=== PATIENT | male | born 1965 | race African-American/Black ===

== ENCOUNTER 2018-02-23 16:42 | Inpatient (IN) | payer OTHER ==
[~2018-02-23] VITALS: Ht 177.8 cm; Wt 91.2 kg
[2018-02-23] VITALS (7 sets, daily range): BP systolic 101–150; BP diastolic 56–79; PULSE 100–115; RESP 18; TEMP 101–103.2; O2SAT 95–98
[2018-02-23] MEDS ORDERED: ACETAMINOPHEN 325 MG TAB PO ONE (17:45)
[2018-02-23] MEDS ORDERED: VANCOMYCIN INJ 1,000 MG in SODIUM CHLOR 0.9% 250 ML INJ 250 ML IV ONE (18:00)
[2018-02-23] MEDS ORDERED: PIPERACIL-TAZO 4.5 GM PREMIX 100 ML IV ONE (18:00)
[2018-02-23] MEDS ORDERED: SODIUM CHLOR 0.9% 1000 ML INJ 1,000 ML IV ONE (18:00)
[2018-02-23 18:27] LABS: AUTOMATED NEUTROPHIL # 31.2 TH/MM3 (1.8-7.7); BASOPHIL # 0.1 TH/MM3 (0-0.2); BASOPHIL % 0.2 % (0.0-2.0); HEMATOCRIT 34.8 % (39.0-51.0); LYMPH % 3.7 % (9.0-44.0); LYMPHOCYTE # 1.4 TH/MM3 (1.0-4.8); MEAN CELL VOLUME 89.1 FL (80.0-100.0); MEAN CORPUSCULAR HEMOGLOBIN 30.6 PG (27.0-34.0); MEAN CORPUSCULAR HGB CONC 34.4 % (32.0-36.0); MEAN PLATELET VOLUME 9.5 FL (7.0-11.0); MONOCYTE # 3.6 TH/MM3 (0-0.9); NEUT % 86.1 % (16.0-70.0); PLATELET COUNT 300 TH/MM3 (150-450); RED BLOOD COUNT 3.91 MIL/MM3 (4.50-5.90); RED CELL DISTRIBUTION WIDTH 14.1 % (11.6-17.2); WHITE BLOOD COUNT 36.3 TH/MM3 (4.0-11.0)
--- NOTE | 2018-02-23 18:35 | RADRPT ---
EXAM DATE/TIME: 02/23/2018 17:58 [facility] COMPARISON: No previous studies available for comparison. INDICATIONS : Chest pain for 3 weeks. MEDICAL HISTORY : Myocardial infarction. Cerebrovascular accident. Liver dsyfunction. SURGICAL HISTORY : None. ENCOUNTER: Initial ACUITY: 3 weeks PAIN SCORE: 8/10 LOCATION: Bilateral chest FINDINGS: There is increased density at the mid and lower left chest. There is silhouetting of the left heart border and left hemidiaphragm. Right lung is clear. CONCLUSION: Left base consolidation/atelectasis and/or effusion. Melvin Child MD on February 23, 2018 at 18:32 Board Certified Radiologist. This report was verified electronically.
[2018-02-23 18:43] LABS: ALT (GPT) 23 U/L (12-78)
[2018-02-23] MEDS ORDERED: SIMV40TA PO (18:43)
--- NOTE | 2018-02-23 18:44 | PD ---
HPI Chief Complaint: Respiratory Distress Time Seen by Provider: 17:41 Travel History International Travel<30 days: No Contact w/Intl Traveler<30days: No Traveled to known affect area: No History of Present Illness HPI 52-year-old male came to the emergency room sent from the correctional facility for fever. As per patient he's been coughing and running fever for past 3 weeks. His notes that [facility] said that patient was seen by the care home doctor yesterday and was [facility]. He was started on Levaquin yesterday. However there was a chest x-ray ordered that was done today that showed left lower lobe infiltrate with air fluid level and possible abscess. They requested a CT of the thorax. Patient had a temperature 103.5 in triage. Oxygen saturation was 93% on room air. Patient does not require oxygen on a regular basis. On 2 L of nasal cannula saturating 97%. Patient is awake and answering questions appropriately. Says his chest hurts. PFSH Past Medical History Narrative Medical List of his past medical, surgical, social and family history is reviewed from the nursing note. Cerebrovascular Accident: Yes (2001 left facial droop) Gastrointestinal Disorders: Yes (liver dysfunction) Myocardial Infarction: Yes (1986) ?: Not Social History Alcohol Use: No Tobacco Use: Yes (0.5 ppd) Substance Use: No Allergies-Medications (Allergen,Severity, Reaction): Coded Allergies: atorvastatin (Verified Adverse Reaction, Severe, Liver failure, 02/23/18) Comments No known drug allergies Reported Meds & Prescriptions Reported Meds & Active Scripts Active Reported Simvastatin 40 Mg Tab 40 Mg PO HS Narrative Medication Awaiting for the nurse to do the medical reconciliation Review of Systems Except as stated in HPI: all other systems reviewed are Neg General / Constitutional: Positive: Fever, Chills Cardiovascular: Positive: Chest Pain or Discomfort Respiratory: Positive: Cough, Shortness of Breath Physical Exam Narrative GENERAL: Awake, alert, moderate distress SKIN: Focused skin assessment warm/dry. HEAD: Atraumatic. Normocephalic. EYES: Pupils equal and round. No scleral icterus. No injection or drainage. ENT: No nasal bleeding or discharge. Mucous membranes pink and moist. NECK: Trachea midline. No JVD. CARDIOVASCULAR: Regular rate and rhythm. No murmur appreciated. RESPIRATORY: No accessory muscle use. By basilar crackles, decreased air entry left lung base GASTROINTESTINAL: Abdomen soft, non-tender, nondistended. Hepatic and splenic margins not palpable. MUSCULOSKELETAL: No obvious deformities. No clubbing. No cyanosis. No edema. NEUROLOGICAL: Awake and alert. No obvious cranial nerve deficits. Motor grossly within normal limits. Normal speech. PSYCHIATRIC: Appropriate mood and affect; insight and judgment normal. Data Data Last Documented VS Orders Orders Complete Blood Count With Diff (02/23/18 17:38) Comprehensive Metabolic Panel (02/23/18 17:38) Lactic Acid Sepsis Protocol (02/23/18 17:38) Blood Culture (02/23/18 17:38) Iv Access Insert/Monitor (02/23/18 17:38) Electrocardiogram (02/23/18 17:39) Troponin I (02/23/18 17:39) Chest, Single Ap (02/23/18 17:39) Ecg Monitoring (02/23/18 17:39) Influenzae A/B Antigen (02/23/18 17:41) Acetaminophen (Tylenol) (02/23/18 17:45) Ct Thorax/ Chest W Iv Contrast (02/23/18 ) Piperacil-Tazo 4.5 Gm Premix (Zosyn 4.5 (02/23/18 18:00) Vancomycin Inj (Vancomycin Inj) (02/23/18 18:00) Sodium Chlor 0.9% 1000 Ml Inj (Ns 1000 M (02/23/18 18:00) Admit Order (Ed Use Only) (02/23/18 19:08) Iodixanol 320 Inj (Rad Ct) (Visipaque 32 (02/23/18 19:15) Admit To Inpatient (02/23/18 ) Vital Signs (Adult) Q4H (02/23/18 19:23) Activity Oob With Assistance (02/23/18 19:23) Mold Holder / Telemetry .CONTINUOUS (02/23/18 19:23) Sodium Chlor 0.9% 1000 Ml Inj (Ns 1000 M (02/23/18 19:23) Sodium Chloride 0.9% Flush (Ns Flush) (02/23/18 19:30) Sodium Chloride 0.9% Flush (Ns Flush) (02/23/18 21:00) Complete Blood Count With Diff (02/24/18 06:00) Resp Oxygen Aubrey C Titrat 1-4 L (02/23/18 ) Case Management Consult (02/23/18 19:23) Naloxone Inj (Narcan Inj) (02/23/18 19:30) Inpatient Certification (02/23/18 ) Vancomycin Consult Pharmacy (Vancomycin (02/23/18 19:30) Piperacil-Tazo 4.5 Gm Premix (Zosyn 4.5 (02/24/18 00:00) Labs Laboratory Tests Test 02/23/18 17:31 02/23/18 17:41 White Blood Count 36.3 TH/MM3 Red Blood Count 3.91 MIL/MM3 Hemoglobin 12.0 GM/DL Hematocrit 34.8 % Mean Corpuscular Volume 89.1 FL Mean Corpuscular Hemoglobin 30.6 PG Mean Corpuscular Hemoglobin Concent 34.4 % Red Cell Distribution Width 14.1 % Platelet Count 300 TH/MM3 Mean Platelet Volume 9.5 FL Neutrophils (%) (Auto) 86.1 % Lymphocytes (%) (Auto) 3.7 % Monocytes (%) (Auto) 10.0 % Eosinophils (%) (Auto) 0.0 % Basophils (%) (Auto) 0.2 % Neutrophils # (Auto) 31.2 TH/MM3 Lymphocytes # (Auto) 1.4 TH/MM3 Monocytes # (Auto) 3.6 TH/MM3 Eosinophils # (Auto) 0.0 TH/MM3 Basophils # (Auto) 0.1 TH/MM3 CBC Comment AUTO DIFF Differential Total Cells Counted 100 Neutrophils % (Manual) 84 % Band Neutrophils % 3 % Lymphocytes % 3 % Monocytes % 9 % Neutrophils # (Manual) 31.9 TH/MM3 Myelocytes 1 % Nucleated Red Blood Cells 1 /100 WBC Differential Comment FINAL DIFF MANUAL Platelet Estimate NORMAL Platelet Morphology Comment ENLARGED Blood Urea Nitrogen 16 MG/DL Creatinine 1.42 MG/DL Random Glucose 101 MG/DL Total Protein 8.5 GM/DL Albumin 2.4 GM/DL Calcium Level 8.9 MG/DL Alkaline Phosphatase 113 U/L Aspartate Amino Transf (AST/SGOT) 44 U/L Alanine Aminotransferase (ALT/SGPT) 23 U/L Total Bilirubin 0.8 MG/DL Sodium Level 129 MEQ/L Potassium Level 3.6 MEQ/L Chloride Level 93 MEQ/L Carbon Dioxide Level 24.8 MEQ/L Anion Gap 11 MEQ/L Estimat Glomerular Filtration Rate 63 ML/MIN Troponin I LESS THAN 0.02 NG/ML Lactic Acid Level 1.6 mmol/L MDM Medical Decision Making Medical Screen Exam Complete: Yes Emergency Medical Condition: Yes Medical Record Reviewed: Yes Interpretation(s) Twelve-lead EKG was reviewed by me. Normal sinus rhythm, normal axis, tachycardia, nonspecific ST-T wave changes. Heart rate of 117 bpm. Differential Diagnosis Pneumonia, lung abscess, empyema, sepsis Narrative Course 6:42 PM patient was given IV antibiotics as per the sepsis protocol. CBC is back and white count is significantly elevated. He's been given 1 L of IV fluid bolus and Tylenol. Lactic acid is within normal limit. Chemistry is pending. Chest x-rays read as left lower lobe effusion and infiltrate. I've ordered a CT scan of the thorax and awaiting for the test to be done and resulted. Patient will require admission. Awaiting for the hospitalist to call back. Critical Care Narrative Aggregate critical care time was 30 minutes. Time to perform other separately billable procedures was not included in the critical care time. My time did not include minutes spent treating any other patients simultaneously or on activities that did not directly contribute to the patient's treatment. The services I provided to this patient were to treat and/or prevent clinically significant deterioration that could result in: Sepsis, sepsis protocol I provided critical care services requiring my management, as noted below: Chart data review, documentation time, medication orders and management, vital sign assessments/reviewing monitor data, ordering and reviewing lab tests, ordering and interpreting/reviewing x-rays and diagnostic studies, care of the patient and discussion of the patient with the admitting physicians. Procedures EKG Prior to Arrival: No Sepsis Criteria SIRS Criteria (2 or more): Temp > 100.9 or < 96.8, Heart rate over 90, WBC > 33509, < 4000 or > 10% bands Sepsis Criteria (SIRS+source): Infect source susp/known Diagnosis Primary Impression: Pneumonia Qualified Codes: J18.1 - Lobar pneumonia, unspecified organism Additional Impression: Sepsis Qualified Codes: A41.9 - Sepsis, unspecified organism Admitting Information Admitting Physician Requests: Mohinder Linton MD Feb 23, 2018 18:43
[2018-02-23 18:45] LABS: ALKALINE PHOSPHATASE 113 U/L (45-117); TOTAL BILIRUBIN ADULT 0.8 MG/DL (0.2-1.0); TOTAL PROTEIN 8.5 GM/DL (6.4-8.2)
[2018-02-23 18:57] LABS: ALBUMIN 2.4 GM/DL (3.4-5.0); AST (GOT) 44 U/L (15-37); BICARBONATE 24.8 MEQ/L (21.0-32.0); BLOOD UREA NITROGEN 16 MG/DL (7-18); CALCIUM 8.9 MG/DL (8.5-10.1); CHLORIDE 93 MEQ/L (98-107); CREATININE 1.42 MG/DL (0.60-1.30); GLOMERULAR FILTRATION RATE 63 ML/MIN (>89); GLUCOSE,RANDOM 101 MG/DL (74-106); SODIUM (NA) 129 MEQ/L (136-145)
[2018-02-23] MEDS ORDERED: IODIXANOL 320 MG/ML 10 ML VIAL (for Rad CT) IVCONTRAST ONE (19:15)
[2018-02-23] MEDS ORDERED: NALOXONE HCL 0.4 MG/ML AMP IV PUSH PRN (19:30)
[2018-02-23] MEDS ORDERED: Vancomycin Consult Pharmacy 1 EA OTHER SCH (19:30)
[2018-02-23] MEDS ORDERED: SODIUM CHLORIDE 0.9% FLUSH 10 ML FLUSH IV FLUSH PRN (19:30)
[2018-02-23 19:35] LABS: BANDS 3 % (0-6); CORRECTED NUCLEATED RBC 1 /100 WBC (0-0); LYMPHOCYTES 3 % (9-44); MONOCYTES 9 % (0-8); MYELOCYTES 1 % (0-0); NEUTROPHIL # MANUAL DIFF 31.9 TH/MM3 (1.8-7.7); NUCLEATED RED BLOOD CELL 1 (0-0); POLYS (SEG NEUTROPHILS) 84 % (16-70)
--- NOTE | 2018-02-23 19:51 | RADRPT ---
EXAM DATE/TIME: 02/23/2018 19:12 [facility] COMPARISON: CHEST SINGLE AP, February 23, 2018, 17:58. INDICATIONS : Short of breath. IV CONTRAST: 50 cc Visipaque (iodixanol) IV RADIATION DOSE: 12.1 CTDIvol (mGy) MEDICAL HISTORY : Stroke. Cardiovascular disease Liver disease. SURGICAL HISTORY : None. ENCOUNTER: Initial ACUITY: 1 day PAIN SCALE: 4/10 LOCATION: Bilateral chest TECHNIQUE: Volumetric scanning of the chest was performed. Using automated exposure control and adjustment of t he mA and/or kV according to patient size, radiation dose was kept as low as reasonably achievable to obtain optimal diagnostic quality images. DICOM format image data is available electronically for review and comparison. Follow-up recommendations for detected pulmonary nodules are based at a minimum on nodule size and pa tient risk factors according to Fleischner Society Guidelines. FINDINGS: LUNGS: There is consolidation seen throughout much of the left lower lobe. There is some cavitary change see n in the inferior aspect of the right lower lobe. The left upper lung and right lung are clear. There is bullous change in the upper lungs. PLEURA: There is a mild to moderate left pleural effusion. MEDIASTINUM: The heart and great vessels demonstrate no acute abnormality. There is no mediastinal or hilar lymph adenopathy. Coronary artery calcification present. AXILLAE: Within normal limits. No lymphadenopathy. SKELETAL: Within normal limits for patient age. MISCELLANEOUS: The visualized upper abdominal organs demonstrate no acute abnormality. CONCLUSION: Consolidation throughout the left lower lobe with a mild to moderate left pleural effusion. This is l ikely secondary to inflammatory/infectious process although other underlying processes cannot be excl uded. There is cavitary change in the left lung base. Melvin Child MD on February 23, 2018 at 19:46 Board Certified Radiologist. This report was verified electronically.
--- NOTE | 2018-02-23 20:25 | HHI.HP ---
[facility] No Primary Care Physician Admission Diagnosis sepsis, pneumonia Diagnoses: (1) Pneumonia (2) Sepsis Chief Complaint: SOB, cough Travel History International Travel<30 Days: No Contact w/Intl Traveler <30 Da: No Traveled to Known Affected Are: No History of Present Illness Mr. 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 Chest x-ray showed left base consolidation consistent with pneumonia. The patient was admitted to the hospitalist service for medical treatment. The patient is seen in the emergency room. He states that he has had symptoms for the past 3 weeks including productive cough with green sputum, left-sided atypical chest pain, and shortness of breath. He reports some episodes of mild hemoptysis. He reports fever, chills, nausea, vomiting, and diarrhea accompanying his symptoms. He reports feeling better now that he is in the emergency room and has started to receive treatment. Symptoms are reported as severe. Review of Systems Except as stated in HPI: all other systems reviewed are Neg Past Family Social History Past Medical History CVA in 2001 with left-sided facial droop Liver dysfunction secondary to atorvastatin use in 1997 ID 1986 -patient states he refused cardiac catheterization or any further workup for this . Past Surgical History Left knee surgery 1997 Left ankle surgery 1997 Right ganglion cyst removal from right radial area of wrist . Reported Medications Reported Meds & Active Scripts Active Reported Simvastatin 40 Mg Tab 40 Mg PO HS . Allergies: Coded Allergies: atorvastatin (Verified Adverse Reaction, Severe, Liver failure, 02/23/18) Family History Father with end-stage renal disease Mother with cancer of unknown etiology . Social History Tobacco: Quit smoking 8 months ago Alcohol: Denies Illicit Drugs: Denies . Physical Exam Vital Signs Vital Signs Date Time Temp Pulse Resp B/P (MAP) Pulse Ox O2 Delivery O2 Flow Rate FiO2 02/23/18 18:40 102.7 114 18 101/56 (71) 96 Nasal Cannula 2.00 02/23/18 17:32 115 18 95 Nasal Cannula 2.00 02/23/18 17:31 103.2 115 18 124/65 (84) 97 Nasal Cannula 2.00 Physical Exam CONSTITUTIONAL: This is a well-nourished, well-developed male patient, in no apparent distress. INTEGUMENTARY: No rashes, ecchymoses or lesions. Cool and dry. HEAD: Atraumatic. Normocephalic. EYES: No scleral icterus. No injection or drainage. ENT: Nose without bleeding, purulent drainage. NECK: Trachea midline. No JVD. CARDIOVASCULAR: Mildly tachycardic rate and rhythm without murmurs, gallops, or rubs. RESPIRATORY: Left lobe crackles auscultated at bases, expiratory wheezing bilaterally. Respirations are even and unlabored with no accessory muscle use. GASTROINTESTINAL: Abdomen soft, non-tender, nondistended. No guarding. MUSCULOSKELETAL: Extremities without clubbing, cyanosis, or edema. No calf tenderness. NEUROLOGICAL: Awake and alert. Motor and sensory grossly within normal limits. Normal speech. . Laboratory Laboratory Tests Test 02/23/18 17:31 02/23/18 17:41 White Blood Count 36.3 Red Blood Count 3.91 Hemoglobin 12.0 Hematocrit 34.8 Mean Corpuscular Volume 89.1 Mean Corpuscular Hemoglobin 30.6 Mean Corpuscular Hemoglobin Concent 34.4 Red Cell Distribution Width 14.1 Platelet Count 300 Mean Platelet Volume 9.5 Neutrophils (%) (Auto) 86.1 Lymphocytes (%) (Auto) 3.7 Monocytes (%) (Auto) 10.0 Eosinophils (%) (Auto) 0.0 Basophils (%) (Auto) 0.2 Neutrophils # (Auto) 31.2 Lymphocytes # (Auto) 1.4 Monocytes # (Auto) 3.6 Eosinophils # (Auto) 0.0 Basophils # (Auto) 0.1 CBC Comment AUTO DIFF Differential Total Cells Counted 100 Neutrophils % (Manual) 84 Band Neutrophils % 3 Lymphocytes % 3 Monocytes % 9 Neutrophils # (Manual) 31.9 Myelocytes 1 Nucleated Red Blood Cells 1 Differential Comment FINAL DIFF MANUAL Platelet Estimate NORMAL Platelet Morphology Comment ENLARGED Blood Urea Nitrogen 16 Creatinine 1.42 Random Glucose 101 Total Protein 8.5 Albumin 2.4 Calcium Level 8.9 Alkaline Phosphatase 113 Aspartate Amino Transf (AST/SGOT) 44 Alanine Aminotransferase (ALT/SGPT) 23 Total Bilirubin 0.8 Sodium Level 129 Potassium Level 3.6 Chloride Level 93 Carbon Dioxide Level 24.8 Anion Gap 11 Estimat Glomerular Filtration Rate 63 Lactic Acid Level 1.6 Date/Time Source Procedure Growth Status 02/23/18 17:41 Blood Peripheral Aerobic Blood Culture Pending Received 02/23/18 17:41 Blood Peripheral Anaerobic Blood Culture Pending Received 02/23/18 18:08 Nasal Aspirate Influenza Types A,B Antigen (CHRISTAL) - Final NEGATIVE FOR FLU A AND B ANTIGEN.... Complete Result Diagram: 02/23/18 1731 02/23/18 1731 Imaging Last Impressions Chest X-Ray 02/23/18 1739 Signed Impressions: Service Date/Time: Friday, February 23, 2018 17:58 - CONCLUSION: Left base consolidation/atelectasis and/or effusion. Melvin Child MD Chest CT 02/23/18 0000 Signed Impressions: Service Date/Time: Friday, February 23, 2018 19:12 - CONCLUSION: Consolidation throughout the left lower lobe with a mild to moderate left pleural effusion. This is likely secondary to inflammatory/infectious process although other underlying processes cannot be excluded. There is cavitary change in the left lung base. Melvin Child MD . Caprini VTE Risk Assessment Caprini VTE Risk Assessment: Mod/High Risk (score >= 2) Caprini Risk Assessment Model Point Value = 1 Point Value = 2 Point Value = 3 Point Value = 5 Age 41-60 Minor surgery BMI > 25 kg/m2 Swollen legs Varicose veins or History of unexplained or recurrent spontaneous Oral contraceptives or hormone replacement Sepsis (< 1 month) Serious lung disease, including pneumonia (< 1 month) Abnormal pulmonary function Acute myocardial infarction Congestive heart failure (< 1 month) History of inflammatory bowel disease Medical patient at bed rest Age 61-74 Arthroscopic surgery Major open surgery (> 45 min) Laparoscopic surgery (> 45 min) Malignancy Confined to bed (> 72 hours) Immobilizing plaster cast Central venous access Age >= 75 History of VTE Family history of VTE Factor V Leiden Prothrombin [id number] Lupus anticoagulant Anticardiolipin antibodies Elevated serum homocysteine Heparin-induced thrombocytopenia Other congenital or acquired thrombophilia Stroke (< 1 month) Elective arthroplasty Hip, pelvis, or leg fracture Acute spinal cord injury (< 1 month) Prophylaxis Regimen Total Risk Factor Score Risk Level Prophylaxis Regimen 0-1 Low Early ambulation 2 Moderate Order ONE of the following: *Sequential Compression Device (SCD) *Heparin 5000 units SQ BID 3-4 Higher Order ONE of the following medications: *Heparin 5000 units SQ TID *Enoxaparin/Lovenox 40 mg SQ daily (WT < 150 kg, CrCl > 30 mL/min) *Enoxaparin/Lovenox 30 mg SQ daily (WT < 150 kg, CrCl > 10-29 mL/min) *Enoxaparin/Lovenox 30 mg SQ BID (WT < 150 kg, CrCl > 30 mL/min) AND/OR *Sequential Compression Device (SCD) 5 or more Highest Order ONE of the following medications: *Heparin 5000 units SQ TID (Preferred with Epidurals) *Enoxaparin/Lovenox 40 mg SQ daily (WT < 150 kg, CrCl > 30 mL/min) *Enoxaparin/Lovenox 30 mg SQ daily (WT < 150 kg, CrCl > 10-29 mL/min) *Enoxaparin/Lovenox 30 mg SQ BID (WT < 150 kg, CrCl > 30 mL/min) AND *Sequential Compression Device (SCD) Assessment and Plan Assessment and Plan Mr. 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 Chest x-ray showed left base consolidation consistent with pneumonia. The patient was admitted to the hospitalist service for medical treatment. Left lung base pneumonia Sepsis Cavitary lung lesion in a correctional facility inmate -Meet sepsis criteria -WBC 36.3, chest x-ray with left lung base consolidation, tachycardia with heart rate in the 110s, temperature of 103.2 on admission -CT thorax/chest with IV contrast was personally reviewed and shows consolidation throughout left lower lobe with mild to moderate left pleural effusion. Likely secondary to inflammatory/infectious process although other underlying processes cannot be excluded. There is cavitary change in the left lung base. -Check sputum for AFB, sputum culture and Gram stain -Consult infectious disease regarding recommendations for cavitary lung lesion -Airborne isolation initiated -IV antibiotics with vancomycin and Zosyn -Duo nebulizers every 6 hours around the clock and every 4 hours as needed shortness of breath/wheezing -Supplemental oxygen titrated to maintain oxygen saturation greater than 92% -Robitussin-DM every 4 hours as needed for cough interfering with rest -Acetaminophen as needed for fever and pain -Continuous cardiac telemetry to monitor for cardiac arrhythmia -IVF hydration with NS at 100 cc/h Atypical chest pain -Initial EKG was personally reviewed and shows sinus tachycardia with a heart rate of 117 no ischemic changes noted -Check serial EKGs and cardiac enzymes to rule out ACS -Nitroglycerin sublingual as needed chest pain Hyponatremia -Sodium 129 -Replace with IV fluids normal saline at 100 cc/h as above -Recheck sodium in a.m. and follow results Acute kidney injury -BUN 16, creatinine 1.42, estimated GFR 63 -IV fluid hydration as per above -Recheck BMP in a.m. and follow renal indices -Avoid nephrotoxins as much as possible Mild transaminitis in patient with history of liver failure -AST 44 -Recheck in a.m. and follow results -Consider checking hepatitis panel if continues to be abnormal Mild anemia of uncertain etiology -Hemoglobin 12.0, hematocrit 34.8 -Repeat CBC in a.m. and follow results DVT propylaxis - Heparin 5000 units subcu every 8 hours Discussed Condition With Patient and Dr. Wing Physician Certification 2 Midnight Certification Type: Admission for Inpatient Services Order for Inpatient Services The services are ordered in accordance with Medicare regulations or non- Medicare payer requirements, as applicable. In the case of services not specified as inpatient-only, they are appropriately provided as inpatient services in accordance with the 2-midnight benchmark. Estimated LOS (days): 5 days is the estimated time the patient will need to remain in the hospital, assuming treatment plan goals are met and no additional complications. Post-Hospital Plan: Not yet determined Problem Qualifiers (1) Pneumonia: Qualified Codes: J18.1 - Lobar pneumonia, unspecified organism (2) Sepsis: Qualified Codes: A41.9 - Sepsis, unspecified organism Xin Thrasher Feb 23, 2018 20:25
[2018-02-23] MEDS: SODIUM CHLORIDE 0.9% FLUSH 10 ML FLUSH IV FLUSH SCH (21:00)
[2018-02-23] MEDS ORDERED: VANCOMYCIN INJ 1,500 MG in SODIUM CHLORID 0.9% 500 ML INJ 500 ML IV ONE (21:00)
[2018-02-23] MEDS: SODIUM CHLOR 0.9% 1000 ML INJ 1,000 ML IV SCH (21:02)
[2018-02-23] MEDS ORDERED: NITROGLYCERIN 0.4 MG SL 25 TABS/BTL SL PRN (21:45)
[2018-02-23] MEDS: RESP: ALBUTEROL 2.5 MG/IPRATROPIUM 0.5 MG NEB (SCH) NEB (23:12)
[2018-02-23] MEDS: HEPARIN SODIUM - SQ 10,000 UNITS/ML VIAL SQ SCH (23:35)
[2018-02-23] MEDS: ACETAMINOPHEN 325 MG TAB PO PRN (23:38)
[2018-02-23] MEDS: PRAVASTATIN SOD 80 MG TAB PO SCH (23:39)
[2018-02-23 23:42] LABS: TROPONIN I LESS THAN 0.02 NG/ML (0.02-0.05)
[2018-02-24] VITALS (11 sets, daily range): BP systolic 113–144; BP diastolic 59–77; PULSE 95–113; RESP 17–20; TEMP 99.6–103; O2SAT 91–95
[2018-02-24] MEDS: PIPERACIL-TAZO 4.5 GM PREMIX 100 ML IV SCH ×3 (03:04→14:05)
[2018-02-24] MEDS: RESP: ALBUTEROL 2.5 MG/IPRATROPIUM 0.5 MG NEB (SCH) NEB ×4 (03:17→21:09)
[2018-02-24] MEDS: SODIUM CHLOR 0.9% 1000 ML INJ 1,000 ML IV SCH ×2 (05:04→15:23)
[2018-02-24] MEDS: HEPARIN SODIUM - SQ 10,000 UNITS/ML VIAL SQ SCH ×3 (05:05→21:55)
[2018-02-24] MEDS: ACETAMINOPHEN 325 MG TAB PO PRN ×3 (09:31→22:07)
[2018-02-24] MEDS: SODIUM CHLORIDE 0.9% FLUSH 10 ML FLUSH IV FLUSH SCH ×2 (09:32→21:00)
[2018-02-24] MEDS: VANCOMYCIN INJ 1,250 MG in SODIUM CHLOR 0.9% 250 ML INJ 250 ML IV SCH ×2 (09:32→21:54)
--- NOTE | 2018-02-24 12:50 | HHI.PR ---
Addendum to Inpatient Note Additional Information pt seen around 1130 full note to follow Britney Romero MD Feb 24, 2018 12:50
--- NOTE | 2018-02-24 12:50 | PD.ID.CON ---
History of Present Illness Service ID Consult Requested By Xin Thrasher Reason for Consult Cavitary PNA Primary Care Physician No Primary Care Physician Diagnoses: History of Present Illness 52 yo male presents from [facility] ([facility]] facility with 2-3 weeks of productive cough , very small intermittent hemoptysis, fever up to 102.8, chills weight loss His cCT reviewed cavitary PNA He denies ever having positive TB or HIV test Review of Systems Respiratory: COMPLAINS OF: Cough, Hemoptysis, Sputum production, Shortness of breath Gastrointestinal: COMPLAINS OF: Diarrhea Except as stated in HPI: all other systems reviewed are Neg Past Family Social History Allergies: Coded Allergies: atorvastatin (Verified Adverse Reaction, Severe, Liver failure, 02/23/18) Past Medical History 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 Past Surgical History Left knee surgery 1997 Left ankle surgery 1997 Right ganglion cyst removal from right radial area of wrist Active Ordered Medications Medications where reviewed in EMR Antibiotics Include: zosyn vancomycin Family History Father with end-stage renal disease Mother with cancer of unknown etiology Social History Tobacco: Quit smoking 8 months ago Alcohol: Denies Illicit Drugs: Denies . Physical Exam Vital Signs Vital Signs Date Time Temp Pulse Resp B/P (MAP) Pulse Ox O2 Delivery O2 Flow Rate FiO2 02/24/18 12:15 99.6 98 20 117/75 (89) 94 02/24/18 08:02 100.0 98 17 134/77 (96) 95 02/24/18 08:00 101 02/24/18 04:00 102.2 113 19 113/59 (77) 94 02/24/18 03:57 109 02/24/18 03:57 Nasal Cannula 2.00 02/24/18 00:00 Nasal Cannula 2.00 02/24/18 00:00 113 02/23/18 23:12 96 Nasal Cannula 2.00 02/23/18 22:00 Nasal Cannula 2.00 02/23/18 22:00 100 02/23/18 21:25 101.6 101 18 139/79 (99) 98 02/23/18 21:02 101.0 101 18 116/64 (81) 97 Nasal Cannula 2.00 02/23/18 18:40 102.7 114 18 101/56 (71) 96 Nasal Cannula 2.00 02/23/18 17:32 115 18 95 Nasal Cannula 2.00 02/23/18 17:31 103.2 115 18 124/65 (84) 97 Nasal Cannula 2.00 Physical Exam CONSTITUTIONAL/GENERAL: This is an adequately nourished patient, in no apparent distress. TUBES/LINES/DRAINS: SKIN: No jaundice, rashes, or lesions. Ecchymoses on upper extremities. No wounds seen anteriorly. Skin temperature appropriate. Not diaphoretic. HEAD: Atraumatic. Normocephalic. EYES: Pupils equal and round and reactive. Extraocular motions intact. No scleral icterus. No injection or drainage. Fundi not examined. ENT: Hearing grossly normal. Nose without bleeding or purulent drainage. Throat without visible erythema, exudates, masses, or lesions. POor dentition NECK: Trachea midline. Supple, nontender. No palpable thyroid enlargement or nodularity. CARDIOVASCULAR: Regular rate and rhythm without murmurs, gallops, or rubs. No JVD. Peripheral pulses symmetric. RESPIRATORY/CHEST: Symmetric, unlabored respirations. L sided rhonchi to auscultation. Breath sounds equal bilaterally. No wheezes, rales GASTROINTESTINAL: Abdomen soft, non-tender, nondistended. No hepato-splenomegaly , or palpable masses. No guarding. Bowel sounds present. GENITOURINARY: Without palpable bladder distension. MUSCULOSKELETAL: Extremities without clubbing, cyanosis, or edema. No joint tenderness or effusion noted. No calf tenderness. No mottling or clubbing. LYMPHATICS: No palpable cervical or supraclavicular adenopathy. NEUROLOGICAL: Awake and alert. Motor and sensory grossly within normal limits. Follows commands. Clear speech. Moves all extremities. PSYCHIATRIC: No obvious anxiety/depression. no apparent hallucinations or other psychotic thought process. Laboratory Laboratory Tests Test 02/23/18 17:31 02/23/18 17:41 02/23/18 23:15 White Blood Count 36.3 Red Blood Count 3.91 Hemoglobin 12.0 Hematocrit 34.8 Mean Corpuscular Volume 89.1 Mean Corpuscular Hemoglobin 30.6 Mean Corpuscular Hemoglobin Concent 34.4 Red Cell Distribution Width 14.1 Platelet Count 300 Mean Platelet Volume 9.5 Neutrophils (%) (Auto) 86.1 Lymphocytes (%) (Auto) 3.7 Monocytes (%) (Auto) 10.0 Eosinophils (%) (Auto) 0.0 Basophils (%) (Auto) 0.2 Neutrophils # (Auto) 31.2 Lymphocytes # (Auto) 1.4 Monocytes # (Auto) 3.6 Eosinophils # (Auto) 0.0 Basophils # (Auto) 0.1 CBC Comment AUTO DIFF Differential Total Cells Counted 100 Neutrophils % (Manual) 84 Band Neutrophils % 3 Lymphocytes % 3 Monocytes % 9 Neutrophils # (Manual) 31.9 Myelocytes 1 Nucleated Red Blood Cells 1 Differential Comment FINAL DIFF MANUAL Platelet Estimate NORMAL Platelet Morphology Comment ENLARGED Blood Urea Nitrogen 16 Creatinine 1.42 Random Glucose 101 Total Protein 8.5 Albumin 2.4 Calcium Level 8.9 Alkaline Phosphatase 113 Aspartate Amino Transf (AST/SGOT) 44 Alanine Aminotransferase (ALT/SGPT) 23 Total Bilirubin 0.8 Sodium Level 129 Potassium Level 3.6 Chloride Level 93 Carbon Dioxide Level 24.8 Anion Gap 11 Estimat Glomerular Filtration Rate 63 Troponin I LESS THAN 0.02 LESS THAN 0.02 Lactic Acid Level 1.6 Total Creatine Kinase 303 Date/Time Source Procedure Growth Status 02/23/18 17:41 Blood Peripheral Aerobic Blood Culture - Preliminary NO GROWTH IN 1 DAY Resulted 02/23/18 17:41 Blood Peripheral Anaerobic Blood Culture - Preliminary NO GROWTH IN 1 DAY Resulted 02/24/18 00:08 Sputum Expectorated Sputum Gram Stain - Final Resulted 02/24/18 00:08 Sputum Expectorated Sputum Sputum Culture Pending Resulted Result Diagram: 02/23/18 1731 02/23/18 1731 Imaging Last Impressions Chest X-Ray 02/23/18 1739 Signed Impressions: Service Date/Time: Friday, February 23, 2018 17:58 - CONCLUSION: Left base consolidation/atelectasis and/or effusion. Melvin Child MD Chest CT 02/23/18 0000 Signed Impressions: Service Date/Time: Friday, February 23, 2018 19:12 - CONCLUSION: Consolidation throughout the left lower lobe with a mild to moderate left pleural effusion. This is likely secondary to inflammatory/infectious process although other underlying processes cannot be excluded. There is cavitary change in the left lung base. Melvin Child MD Assessment and Plan Assessment and Plan Casvitary PNA Increased TB risk (incarcerated) no prior TB h/o cont zosyn, vanco for now fu routine, AFB cl MTB probe HIV testing - pt was counseled and is agreable Britney Romero MD Feb 24, 2018 12:50
[2018-02-24 13:47] LABS: AUTOMATED NEUTROPHIL # 37.3 TH/MM3 (1.8-7.7); BASOPHIL # 0.1 TH/MM3 (0-0.2); BASOPHIL % 0.3 % (0.0-2.0); EOSINOPHIL % 0.1 % (0.0-4.0); HEMATOCRIT 32.7 % (39.0-51.0); HEMOGLOBIN 10.8 GM/DL (13.0-17.0); LYMPH % 4.3 % (9.0-44.0); LYMPHOCYTE # 1.8 TH/MM3 (1.0-4.8); MEAN CELL VOLUME 91.2 FL (80.0-100.0); MEAN CORPUSCULAR HEMOGLOBIN 30.1 PG (27.0-34.0); MEAN PLATELET VOLUME 9.8 FL (7.0-11.0); MONO % 6.9 % (0.0-8.0); MONOCYTE # 2.9 TH/MM3 (0-0.9); NEUT % 88.4 % (16.0-70.0); PLATELET COUNT 314 TH/MM3 (150-450); RED BLOOD COUNT 3.58 MIL/MM3 (4.50-5.90); RED CELL DISTRIBUTION WIDTH 14.3 % (11.6-17.2); WHITE BLOOD COUNT 42.2 TH/MM3 (4.0-11.0)
[2018-02-24 14:16] LABS: ALKALINE PHOSPHATASE 97 U/L (45-117); ALT (GPT) 16 U/L (12-78); AST (GOT) 36 U/L (15-37); BICARBONATE 25.1 MEQ/L (21.0-32.0); BLOOD UREA NITROGEN 15 MG/DL (7-18); CALCIUM 8.4 MG/DL (8.5-10.1); CHLORIDE 101 MEQ/L (98-107); CREATININE 1.31 MG/DL (0.60-1.30); GLOMERULAR FILTRATION RATE 70 ML/MIN (>89); GLUCOSE,RANDOM 92 MG/DL (74-106); SODIUM (NA) 134 MEQ/L (136-145); TOTAL BILIRUBIN ADULT 0.8 MG/DL (0.2-1.0); TOTAL PROTEIN 7.6 GM/DL (6.4-8.2); TROPONIN I LESS THAN 0.02 NG/ML (0.02-0.05)
[2018-02-24 17:14] LABS: BANDS 4 % (0-6); LYMPHOCYTES 6 % (9-44); MONOCYTES 7 % (0-8); NEUTROPHIL # MANUAL DIFF 36.3 TH/MM3 (1.8-7.7); PLASMA CELLS 1 % (0-0); POLYS (SEG NEUTROPHILS) 82 % (16-70)
[2018-02-24 17:15] LABS: DOHLE BODIES PRESENT (NONE SEEN); TOXIC GRANULATION 1+ (NORMAL); TOXIC VACUOLATION PRESENT (NONE SEEN)
--- NOTE | 2018-02-24 18:11 | HHI.PR ---
Subjective Remarks The patient states that shortness of breath is improving, denies chest pain. Complains of fevers but no chills. Patient having fevers with a T-max of 102.2. Denies diarrhea + cough Objective Vitals Vital Signs Date Time Temp Pulse Resp B/P (MAP) Pulse Ox O2 Delivery O2 Flow Rate FiO2 02/24/18 16:02 102.8 109 19 139/77 (97) 91 02/24/18 12:15 99.6 98 20 117/75 (89) 94 02/24/18 08:02 100.0 98 17 134/77 (96) 95 02/24/18 08:00 101 02/24/18 08:00 Room Air 02/24/18 04:00 102.2 113 19 113/59 (77) 94 02/24/18 03:57 109 02/24/18 03:57 Nasal Cannula 2.00 02/24/18 00:00 Nasal Cannula 2.00 02/24/18 00:00 113 02/23/18 23:12 96 Nasal Cannula 2.00 02/23/18 22:00 Nasal Cannula 2.00 02/23/18 22:00 100 02/23/18 21:25 101.6 101 18 139/79 (99) 98 02/23/18 21:02 101.0 101 18 116/64 (81) 97 Nasal Cannula 2.00 02/23/18 18:40 102.7 114 18 101/56 (71) 96 Nasal Cannula 2.00 I/O 02/23/18 02/23/18 02/23/18 02/24/18 02/24/18 02/24/18 07:00 15:00 23:00 07:00 15:00 23:00 Intake Total 320 ml Output Total 500 ml Balance -180 ml Intake Oral 320 ml Output Urine Total 500 ml # Bowel Movements 0 Result Diagram: 02/24/18 1250 02/24/18 1250 Imaging Last Impressions Chest X-Ray 02/23/18 8169 Signed Impressions: Service Date/Time: Friday, February 23, 2018 17:58 - CONCLUSION: Left base consolidation/atelectasis and/or effusion. Melvin Child MD Chest CT 02/23/18 0000 Signed Impressions: Service Date/Time: Friday, February 23, 2018 19:12 - CONCLUSION: Consolidation throughout the left lower lobe with a mild to moderate left pleural effusion. This is likely secondary to inflammatory/infectious process although other underlying processes cannot be excluded. There is cavitary change in the left lung base. Melvin Child MD Objective Remarks AAOx3 Diaphoretic nad S1-S2 present with regular rate and rhythm, no murmur rubs or gallops. Bilateral lung wheezing with decreased breath sounds and dullness to percussion of left hemithorax Abdomen is soft, nontender nondistended No edema in lower extremities. Medications and IVs Current Medications Medications (Trade) Dose Ordered Sig/Patti Route Start Time Stop Time Status Last Admin Sodium Chloride 1,000 ml @ 100 mls/hr Q10H IV 02/23/18 19:23 02/24/18 15:23 (NS Flush) 2 ml UNSCH PRN IV FLUSH 02/23/18 19:30 (NS Flush) 2 ml BID IV FLUSH 02/23/18 21:00 02/24/18 09:32 (Narcan Inj) 0.4 mg UNSCH PRN IV PUSH 02/23/18 19:30 Pharmacy Profile Note 0 ml @ 0 mls/hr UNSCH OTHER 02/23/18 19:30 Piperacillin Sod/ Tazobactam Sod 100 ml @ 200 mls/hr Q6H IV 02/24/18 00:00 02/24/18 14:05 Vancomycin HCl 1250 mg/Sodium Chloride 262.5 ml @ 250 mls/hr Q12HR IV 02/24/18 09:00 02/24/18 09:32 Miscellaneous Information SPECIFIC LAB TO BE KIP... ONCE ONCE .XX 02/25/18 08:45 02/25/18 08:46 (Tylenol) 650 mg Q4H PRN PO 02/23/18 20:30 02/24/18 15:29 (Robitussin Dm 200-20 Mg/10 ml Liq) 10 ml Q4H PRN PO 02/23/18 20:30 (Duoneb Neb) 1 ampule Q4HR NEB PRN NEB 02/23/18 20:30 (Duoneb Neb) 1 ampule Q6HR NEB NEB 02/23/18 22:00 02/24/18 03:17 (Heparin Inj) 5,000 units Q8HR SQ 02/23/18 22:00 02/24/18 05:05 (Nitrostat Sl) 0.4 mg Q5M PRN SL 02/23/18 21:45 (Pravachol) 80 mg HS PO 02/23/18 22:15 02/23/18 23:39 A/P Problem List: (1) Sepsis ICD Code: A41.9 - Sepsis, unspecified organism Status: Acute (2) Pneumonia ICD Code: J18.9 - Pneumonia, unspecified organism Status: Acute (3) Reactive airway disease ICD Code: J45.909 - Unspecified asthma, uncomplicated (4) Pleural effusion, left ICD Code: J90 - Pleural effusion, not elsewhere classified Assessment and Plan Mr. 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 Chest x-ray showed left base consolidation consistent with pneumonia. The patient was admitted to the hospitalist service for medical treatment. 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 -Meet sepsis criteria -WBC 36.3, chest x-ray with left lung base consolidation, tachycardia with heart rate in the 110s, temperature of 103.2 on admission -CT thorax/chest with IV contrast was personally reviewed and shows consolidation throughout left lower lobe with mild to moderate left pleural effusion. Likely secondary to inflammatory/infectious process although other underlying processes cannot be excluded. There is cavitary change in the left lung base. -Check sputum for AFB, sputum culture and Gram stain -Consult infectious disease regarding recommendations for cavitary lung lesion -Airborne isolation initiated -IV antibiotics with vancomycin and Zosyn -Duo nebulizers every 6 hours around the clock and every 4 hours as needed shortness of breath/wheezing -Supplemental oxygen titrated to maintain oxygen saturation greater than 92% -Robitussin-DM every 4 hours as needed for cough interfering with rest -Acetaminophen as needed for fever and pain -Continuous cardiac telemetry to monitor for cardiac arrhythmia -IVF hydration with NS at 100 cc/h 02/24 start IV Solu-Medrol. Will give 125 mg IV once and then history milligrams IV every 6 hours. Infectious disease consultation noted. Continue IV antibiotics as per ID. Continue management as above. Atypical chest pain -Initial EKG was personally reviewed and shows sinus tachycardia with a heart rate of 117 no ischemic changes noted -Check serial EKGs and cardiac enzymes to rule out ACS -Nitroglycerin sublingual as needed chest pain 03/27 troponin negative 3. Chest pain resolved likely secondary to COPD exacerbation and pneumonia. Hyponatremia -Sodium 129 -Replace with IV fluids normal saline at 100 cc/h as above -Recheck sodium in a.m. and follow results 03/27 hyponatremia improved and almost resolved with a sodium of 134. Continue normal saline. Continue to monitor BMP. Acute kidney injury -BUN 16, creatinine 1.42, estimated GFR 63 -IV fluid hydration as per above -Recheck BMP in a.m. and follow renal indices -Avoid nephrotoxins as much as possible 03/27 creatinine trending down. Suspect prerenal azotemia from dehydration due to sepsis secondary to pneumonia and COPD exacerbation. Creatinine down to 1.31. Continue to monitor BUN/creatinine, history I's and O's, avoid nephrotoxins. Continue IV fluids and continue to monitor BMP. Mild transaminitis in patient with history of liver failure -AST 44 -Recheck in a.m. and follow results -Consider checking hepatitis panel if continues to be abnormal 02/24 check hepatitis panel given the patient is at a palpitation at risk for hepatitis B or C. Elevated AST resolved. Normocytic anemia -Hemoglobin 12.0, hematocrit 34.8 -Repeat CBC in a.m. and follow results 02/24 hemoglobin dropped down to 10.8. Normocytic anemia. Continue to monitor CBC. Perfuse as needed for hemoglobin less than 7 or symptomatic anemia. Check iron studies. Parapneumonic effusion Chest x-ray and CT of the chest reviewed by me shows left lower lung consolidation and a mild to moderate left pleural effusion. We will order ultrasound-guided thoracentesis of the left sided pleural effusion. Will send pleural fluid for Gram stain and culture. DVT propylaxis - Heparin 5000 units subcu every 8 hours Discharge Planning Patient with cavitary pneumonia, COPD exacerbation, left pleural effusion. Patient on broad-spectrum IV antibiotics, ID consulted. Also some AKA on IV fluids. Renal ultrasound ordered. Pending thoracentesis for left pleural effusion. Problem Qualifiers (1) Sepsis: Qualified Codes: A41.9 - Sepsis, unspecified organism (2) Pneumonia: Qualified Codes: J18.1 - Lobar pneumonia, unspecified organism Krish Galvan MD Feb 24, 2018 18:11
[2018-02-24] MEDS ORDERED: methylPREDNISolone SOD SUCC 125 MG/2 ML VIAL IV PUSH ONE (19:00)
--- NOTE | 2018-02-24 19:18 | RADRPT ---
EXAM DATE/TIME: 02/24/2018 18:59 [facility] COMPARISON: CT THORAX W CONTRAST, February 23, 2018, 19:12. CHEST SINGLE AP, February 23, 2018, 17:58. INDICATIONS : Post thoracentesis. MEDICAL HISTORY : Myocardial infarction. Cerebrovascular accident. Liver dsyfunction SURGICAL HISTORY : None. ENCOUNTER: Subsequent ACUITY: 3 weeks PAIN SCORE: 0/10 LOCATION: Bilateral chest FINDINGS: There is persistent increased density in the mid and lower left chest consistent with pleural and pa renchymal disease. This appears similar to the prior chest x-ray. A pneumothorax is not present. The right lung is clear. The left heart border and left hemidiaphragm are silhouetted by the left base pr ocess. CONCLUSION: Persistent pleural-parenchymal disease at the left mid and lower lung. A pneumothorax is not seen. Melvin Child MD on February 24, 2018 at 19:14 Board Certified Radiologist. This report was verified electronically.
[2018-02-24 20:29] LABS: PROTHROMBIN TIME - PATIENT 10.6 SEC (9.8-11.6)
[2018-02-24] MEDS: PRAVASTATIN SOD 80 MG TAB PO SCH (21:55)
[2018-02-24] MEDS: guaiFENesin/DEXTROMETHORPHAN 200 MG/20 MG/10 ML CUP PO PRN (22:07)
--- NOTE | 2018-02-24 22:36 | EKG ---
Date Performed: 02/23/2018 Time Performed: 22:29:06 PTAGE: 52 years EKG: SINUS TACHYCARDIA ABNORMAL RHYTHM ECG PREVIOUS TRACING : 02/23/2018 17.14 Since the previous tracing, no significant change noted DOCTOR: Jacinda Carlson Interpretating Date/Time 02/24/2018 22:35:58
--- NOTE | 2018-02-24 22:45 | EKG ---
Date Performed: 02/23/2018 Time Performed: 17:14:32 PTAGE: 52 years EKG: SINUS TACHYCARDIA POSSIBLE LEFT ATRIAL ENLARGEMENT ABNORMAL RHYTHM ECG NO PREVIOUS TRACING DOCTOR: Jacinda Carlson Interpretating Date/Time 02/24/2018 22:44:30
[2018-02-25] VITALS (10 sets, daily range): BP systolic 127–144; BP diastolic 72–85; PULSE 78–97; RESP 17–20; TEMP 97.6–99.7; O2SAT 91–99
[2018-02-25] MEDS: SODIUM CHLOR 0.9% 1000 ML INJ 1,000 ML IV SCH (00:24)
[2018-02-25] MEDS: methylPREDNISolone SOD SUCC 40 MG/1 ML VIAL IV PUSH SCH ×2 (00:24→05:45)
[2018-02-25] MEDS: PIPERACIL-TAZO 4.5 GM PREMIX 100 ML IV SCH ×4 (00:24→18:04)
--- NOTE | 2018-02-25 01:27 | HHI.PR ---
Subjective Remarks not seen Objective Vitals Vital Signs Date Time Temp Pulse Resp B/P (MAP) Pulse Ox O2 Delivery O2 Flow Rate FiO2 02/24/18 23:52 100.3 95 20 126/70 (88) 93 02/24/18 20:00 Room Air 02/24/18 20:00 99 02/24/18 20:00 103.0 101 20 144/73 (96) 92 02/24/18 16:02 102.8 109 19 139/77 (97) 91 02/24/18 16:00 110 02/24/18 12:15 99.6 98 20 117/75 (89) 94 02/24/18 12:00 99 02/24/18 08:02 100.0 98 17 134/77 (96) 95 02/24/18 08:00 101 02/24/18 08:00 Room Air 02/24/18 04:00 102.2 113 19 113/59 (77) 94 02/24/18 03:57 109 02/24/18 03:57 Nasal Cannula 2.00 I/O 02/24/18 02/24/18 02/24/18 02/25/18 02/25/18 02/25/18 07:00 15:00 23:00 07:00 15:00 23:00 Intake Total 320 ml 360 ml Output Total 500 ml 600 ml Balance -180 ml -240 ml Intake Oral 320 ml 360 ml Output Urine Total 500 ml 600 ml # Bowel Movements 0 0 Result Diagram: 02/24/18 1250 02/24/18 1250 Imaging Last Impressions Chest X-Ray 02/24/18 0000 Signed Impressions: Service Date/Time: Saturday, February 24, 2018 18:59 - CONCLUSION: Persistent pleural-parenchymal disease at the left mid and lower lung. A pneumothorax is not seen. Melvin Child MD Chest CT 02/23/18 0000 Signed Impressions: Service Date/Time: Friday, February 23, 2018 19:12 - CONCLUSION: Consolidation throughout the left lower lobe with a mild to moderate left pleural effusion. This is likely secondary to inflammatory/infectious process although other underlying processes cannot be excluded. There is cavitary change in the left lung base. Melvin Child MD Objective Remarks AAOx3 Diaphoretic nad S1-S2 present with regular rate and rhythm, no murmur rubs or gallops. Bilateral lung wheezing with decreased breath sounds and dullness to percussion of left hemithorax Abdomen is soft, nontender nondistended No edema in lower extremities. A/P Problem List: (1) Sepsis ICD Code: A41.9 - Sepsis, unspecified organism Status: Acute (2) Pneumonia ICD Code: J18.9 - Pneumonia, unspecified organism Status: Acute (3) Reactive airway disease ICD Code: J45.909 - Unspecified asthma, uncomplicated (4) Pleural effusion, left ICD Code: J90 - Pleural effusion, not elsewhere classified Assessment and Plan Mr. 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 Chest x-ray showed left base consolidation consistent with pneumonia. The patient was admitted to the hospitalist service for medical treatment. 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 -Meet sepsis criteria -WBC 36.3, chest x-ray with left lung base consolidation, tachycardia with heart rate in the 110s, temperature of 103.2 on admission -CT thorax/chest with IV contrast was personally reviewed and shows consolidation throughout left lower lobe with mild to moderate left pleural effusion. Likely secondary to inflammatory/infectious process although other underlying processes cannot be excluded. There is cavitary change in the left lung base. -Check sputum for AFB, sputum culture and Gram stain -Consult infectious disease regarding recommendations for cavitary lung lesion -Airborne isolation initiated -IV antibiotics with vancomycin and Zosyn -Duo nebulizers every 6 hours around the clock and every 4 hours as needed shortness of breath/wheezing -Supplemental oxygen titrated to maintain oxygen saturation greater than 92% -Robitussin-DM every 4 hours as needed for cough interfering with rest -Acetaminophen as needed for fever and pain -Continuous cardiac telemetry to monitor for cardiac arrhythmia -IVF hydration with NS at 100 cc/h 02/24 start IV Solu-Medrol. Will give 125 mg IV once and then history milligrams IV every 6 hours. Infectious disease consultation noted. Continue IV antibiotics as per ID. Continue management as above. Atypical chest pain -Initial EKG was personally reviewed and shows sinus tachycardia with a heart rate of 117 no ischemic changes noted -Check serial EKGs and cardiac enzymes to rule out ACS -Nitroglycerin sublingual as needed chest pain 03/27 troponin negative 3. Chest pain resolved likely secondary to COPD exacerbation and pneumonia. Hyponatremia -Sodium 129 -Replace with IV fluids normal saline at 100 cc/h as above -Recheck sodium in a.m. and follow results 03/27 hyponatremia improved and almost resolved with a sodium of 134. Continue normal saline. Continue to monitor BMP. Acute kidney injury -BUN 16, creatinine 1.42, estimated GFR 63 -IV fluid hydration as per above -Recheck BMP in a.m. and follow renal indices -Avoid nephrotoxins as much as possible 03/27 creatinine trending down. Suspect prerenal azotemia from dehydration due to sepsis secondary to pneumonia and COPD exacerbation. Creatinine down to 1.31. Continue to monitor BUN/creatinine, history I's and O's, avoid nephrotoxins. Continue IV fluids and continue to monitor BMP. Mild transaminitis in patient with history of liver failure -AST 44 -Recheck in a.m. and follow results -Consider checking hepatitis panel if continues to be abnormal 02/24 check hepatitis panel given the patient is at a palpitation at risk for hepatitis B or C. Elevated AST resolved. Normocytic anemia -Hemoglobin 12.0, hematocrit 34.8 -Repeat CBC in a.m. and follow results 02/24 hemoglobin dropped down to 10.8. Normocytic anemia. Continue to monitor CBC. Perfuse as needed for hemoglobin less than 7 or symptomatic anemia. Check iron studies. Parapneumonic effusion Chest x-ray and CT of the chest reviewed by me shows left lower lung consolidation and a mild to moderate left pleural effusion. We will order ultrasound-guided thoracentesis of the left sided pleural effusion. Will send pleural fluid for Gram stain and culture. DVT propylaxis - Heparin 5000 units subcu every 8 hours Discharge Planning Patient with cavitary pneumonia, COPD exacerbation, left pleural effusion. Patient on broad-spectrum IV antibiotics, ID consulted. Also some AKA on IV fluids. Renal ultrasound ordered. Pending thoracentesis for left pleural effusion. Problem Qualifiers (1) Sepsis: Qualified Codes: A41.9 - Sepsis, unspecified organism (2) Pneumonia: Qualified Codes: J18.1 - Lobar pneumonia, unspecified organism Johnny Astorga MD Feb 25, 2018 01:27
[2018-02-25] MEDS: RESP: ALBUTEROL 2.5 MG/IPRATROPIUM 0.5 MG NEB (SCH) NEB ×4 (03:28→20:45)
[2018-02-25] MEDS: guaiFENesin/DEXTROMETHORPHAN 200 MG/20 MG/10 ML CUP PO PRN ×2 (05:43→08:39)
[2018-02-25] MEDS: HEPARIN SODIUM - SQ 10,000 UNITS/ML VIAL SQ SCH ×3 (05:44→21:48)
[2018-02-25 08:35] LABS: AUTOMATED NEUTROPHIL # 41.2 TH/MM3 (1.8-7.7); BASOPHIL # 0.1 TH/MM3 (0-0.2); BASOPHIL % 0.3 % (0.0-2.0); HEMATOCRIT 30.1 % (39.0-51.0); HEMOGLOBIN 10.1 GM/DL (13.0-17.0); LYMPH % 3.3 % (9.0-44.0); LYMPHOCYTE # 1.5 TH/MM3 (1.0-4.8); MEAN CELL VOLUME 89.6 FL (80.0-100.0); MEAN CORPUSCULAR HEMOGLOBIN 30.1 PG (27.0-34.0); MEAN CORPUSCULAR HGB CONC 33.7 % (32.0-36.0); MEAN PLATELET VOLUME 8.9 FL (7.0-11.0); MONO % 3.4 % (0.0-8.0); MONOCYTE # 1.5 TH/MM3 (0-0.9); PLATELET COUNT 327 TH/MM3 (150-450); RED BLOOD COUNT 3.35 MIL/MM3 (4.50-5.90); RED CELL DISTRIBUTION WIDTH 14.2 % (11.6-17.2); WHITE BLOOD COUNT 44.3 TH/MM3 (4.0-11.0)
[2018-02-25] MEDS: ACETAMINOPHEN 325 MG TAB PO PRN (08:39)
[2018-02-25 08:40] LABS: INTERNATIONAL NORMALIZED RATIO 1.1 RATIO; PROTHROMBIN TIME - PATIENT 10.7 SEC (9.8-11.6)
[2018-02-25] MEDS ORDERED: PHARMACY ORDERED LAB ONE (08:45)
[2018-02-25] MEDS: SODIUM CHLORIDE 0.9% FLUSH 10 ML FLUSH IV FLUSH SCH ×2 (09:00→21:49)
[2018-02-25 09:04] LABS: ALBUMIN 1.9 GM/DL (3.4-5.0); ALT (GPT) 13 U/L (12-78); AST (GOT) 28 U/L (15-37); BICARBONATE 24.5 MEQ/L (21.0-32.0); BLOOD UREA NITROGEN 16 MG/DL (7-18); CALCIUM 8.4 MG/DL (8.5-10.1); CHLORIDE 104 MEQ/L (98-107); CREATININE 1.15 MG/DL (0.60-1.30); GLOMERULAR FILTRATION RATE 81 ML/MIN (>89); GLUCOSE,RANDOM 143 MG/DL (74-106); MAGNESIUM 2.7 MG/DL (1.5-2.5); SODIUM (NA) 139 MEQ/L (136-145)
[2018-02-25 09:05] LABS: PHOSPHORUS 3.2 MG/DL (2.5-4.9)
[2018-02-25 09:06] LABS: ALKALINE PHOSPHATASE 96 U/L (45-117); TOTAL BILIRUBIN ADULT 0.6 MG/DL (0.2-1.0); TOTAL PROTEIN 7.5 GM/DL (6.4-8.2)
[2018-02-25] MEDS: VANCOMYCIN INJ 1,250 MG in SODIUM CHLOR 0.9% 250 ML INJ 250 ML IV SCH (09:34)
[2018-02-25 09:37] LABS: BANDS 5 % (0-6); LYMPHOCYTES 5 % (9-44); MONOCYTES 3 % (0-8); MYELOCYTES 1 % (0-0); NEUTROPHIL # MANUAL DIFF 40.8 TH/MM3 (1.8-7.7); POLYS (SEG NEUTROPHILS) 86 % (16-70)
[2018-02-25 09:39] LABS: TOXIC GRANULATION 1+ (NORMAL); TOXIC VACUOLATION PRESENT (NONE SEEN)
--- NOTE | 2018-02-25 11:13 | HHI.PR ---
Subjective Remarks Follow-up pneumonia. States improving hoarseness and shortness of breath discussed with nursing and infectious disease Objective Vitals Vital Signs Date Time Temp Pulse Resp B/P (MAP) Pulse Ox O2 Delivery O2 Flow Rate FiO2 02/25/18 10:20 99 21 02/25/18 08:37 98.2 86 18 127/74 (91) 96 02/25/18 04:00 99.7 93 20 129/72 (91) 91 02/25/18 04:00 90 02/25/18 00:00 93 02/24/18 23:52 100.3 95 20 126/70 (88) 93 02/24/18 20:00 Room Air 02/24/18 20:00 99 02/24/18 20:00 103.0 101 20 144/73 (96) 92 02/24/18 16:02 102.8 109 19 139/77 (97) 91 02/24/18 16:00 110 02/24/18 12:15 99.6 98 20 117/75 (89) 94 02/24/18 12:00 99 I/O 02/24/18 02/24/18 02/24/18 02/25/18 02/25/18 02/25/18 07:00 15:00 23:00 07:00 15:00 23:00 Intake Total 320 ml 360 ml Output Total 500 ml 600 ml 1200 ml Balance -180 ml -240 ml -1200 ml Intake Oral 320 ml 360 ml Output Urine Total 500 ml 600 ml 1200 ml # Bowel Movements 0 0 Result Diagram: 02/25/18 0608 02/25/18 0600 Imaging Last Impressions Chest Ultrasound 02/25/18 0000 Signed Impressions: Service Date/Time: January 10:42 - CONCLUSION: Left pleural effusion is too small and loculated for ultrasound-guided thoracentesis. CT guided thoracentesis is recommended. Ramin Angulo MD Chest X-Ray 02/24/18 0000 Signed Impressions: Service Date/Time: Saturday, February 24, 2018 18:59 - CONCLUSION: Persistent pleural-parenchymal disease at the left mid and lower lung. A pneumothorax is not seen. Melvin Child MD Chest CT 02/23/18 0000 Signed Impressions: Service Date/Time: Friday, February 23, 2018 19:12 - CONCLUSION: Consolidation throughout the left lower lobe with a mild to moderate left pleural effusion. This is likely secondary to inflammatory/infectious process although other underlying processes cannot be excluded. There is cavitary change in the left lung base. Melvin Child MD Objective Remarks Well-developed and well-nourished in no distress AAOx3, nonfocal Warm dry skin with no lesions S1-S2 present with regular rate and rhythm, no murmur rubs or gallops. Bilateral lung with decreased breath sounds and dullness to percussion of left hemithorax Abdomen is soft, nontender nondistended No edema in lower extremities. No cyanosis Procedures none A/P Problem List: (1) Sepsis ICD Code: A41.9 - Sepsis, unspecified organism Status: Acute (2) Pneumonia ICD Code: J18.9 - Pneumonia, unspecified organism Status: Acute (3) Reactive airway disease ICD Code: J45.909 - Unspecified asthma, uncomplicated (4) Pleural effusion, left ICD Code: J90 - Pleural effusion, not elsewhere classified Assessment and Plan Mr. 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 Chest x-ray showed left base consolidation consistent with pneumonia. The patient was admitted to the hospitalist service for medical treatment. 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 -Clinically stable but worsening leukocytosis which could be contributed by steroids. Continue IV vancomycin and Zosyn and follow-up AFB culture. AFB stain negative and sputum culture with normal maggie. Follow-up MTB and isolation. Nebulizations and oxygen as needed. Switch to p.o. steroids Atypical chest pain troponin negative 3. Chest pain resolved likely secondary to COPD exacerbation and pneumonia. Hyponatremia Resolved disc normal saline. Continue to monitor BMP. Acute kidney injury Suspect prerenal azotemia from dehydration due to sepsis secondary to pneumonia and COPD exacerbation. Resolving discontinue IV fluids and continue to monitor. Mild transaminitis in patient with history of liver failure This is resolved with negative hepatitis panel. Likely secondary to sepsis Normocytic anemia Normocytic anemia. Continue to monitor CBC. Transfuse to keep hemoglobin at least 8. Check iron studies and guaiac stools Parapneumonic effusion Chest x-ray and CT of the chest reviewed by me shows left lower lung consolidation and a mild to moderate left pleural effusion. Ultrasound shows small amount of fluid not safe for thoracentesis. DVT propylaxis - Heparin 5000 units subcu every 8 hours Discharge Planning Patient with cavitary pneumonia, COPD exacerbation, left pleural effusion. Patient on broad-spectrum IV antibiotics, ID consulted. Problem Qualifiers (1) Sepsis: Qualified Codes: A41.9 - Sepsis, unspecified organism (2) Pneumonia: Qualified Codes: J18.1 - Lobar pneumonia, unspecified organism Johnny Astorga MD Feb 25, 2018 11:13
--- NOTE | 2018-02-25 11:24 | RADRPT ---
EXAM DATE/TIME: 02/25/2018 10:42 [facility] COMPARISON: No previous studies available for comparison. INDICATIONS : Left plerual effusion. MEDICAL HISTORY : Myocardial infarction. Hypercholesterolemia. Hypertension. Neck pain. Dyspnea. Liver dysfunction. SURGICAL HISTORY : Ankle, knee and wrist surgery. ENCOUNTER: Initial ACUITY: 1 day PAIN SCORE: 0/10 LOCATION: Left chest MEASUREMENTS: SKIN TO PARIETAL PLEURA: 2.1 cm SKIN TO MAX SAFE DEPTH: 3.3 cm ESTIMATED FLUID VOLUME: 155 cc FLUID COMPOSITION: complex FINDINGS: No marking was performed. The amount of fluid was too small and loculated for safe ultrasound-guided thoracentesis. CONCLUSION: Left pleural effusion is too small and loculated for ultrasound-guided thoracentesis. CT guided thora centesis is recommended. Ramin Angulo MD on February 25, 2018 at 10:59 Board Certified Radiologist. This report was verified electronically.
[2018-02-25] MEDS ORDERED: POTASSIUM CHLORIDE 10 MEQ CONTROLLED RELEASE TAB PO ONE (13:00)
--- NOTE | 2018-02-25 13:20 | HHI.IDPN ---
Subjective Subjective Remarks wbc up to 44 K On sterroids afebrile + diarrhea no abd pain Antibiotics zosyn vanco Allergies: Coded Allergies: atorvastatin (Verified Adverse Reaction, Severe, Liver failure, 02/23/18) Objective . Vital Signs Date Time Temp Pulse Resp B/P (MAP) Pulse Ox O2 Delivery O2 Flow Rate FiO2 02/25/18 11:29 97.9 78 18 131/84 (100) 94 02/25/18 10:20 99 21 02/25/18 08:37 98.2 86 18 127/74 (91) 96 02/25/18 08:00 79 02/25/18 04:00 99.7 93 20 129/72 (91) 91 02/25/18 04:00 90 02/25/18 00:00 93 02/24/18 23:52 100.3 95 20 126/70 (88) 93 02/24/18 20:00 Room Air 02/24/18 20:00 99 02/24/18 20:00 103.0 101 20 144/73 (96) 92 02/24/18 16:02 102.8 109 19 139/77 (97) 91 02/24/18 16:00 110 . Laboratory Tests Test 02/23/18 17:31 02/24/18 12:50 02/25/18 06:08 White Blood Count 36.3 TH/MM3 42.2 TH/MM3 44.3 TH/MM3 Red Blood Count 3.91 MIL/MM3 3.58 MIL/MM3 3.35 MIL/MM3 Hemoglobin 12.0 GM/DL 10.8 GM/DL 10.1 GM/DL Hematocrit 34.8 % 32.7 % 30.1 % Mean Corpuscular Volume 89.1 FL 91.2 FL 89.6 FL Mean Corpuscular Hemoglobin 30.6 PG 30.1 PG 30.1 PG Mean Corpuscular Hemoglobin Concent 34.4 % 33.0 % 33.7 % Red Cell Distribution Width 14.1 % 14.3 % 14.2 % Platelet Count 300 TH/MM3 314 TH/MM3 327 TH/MM3 Mean Platelet Volume 9.5 FL 9.8 FL 8.9 FL Neutrophils (%) (Auto) 86.1 % 88.4 % 93.0 % Lymphocytes (%) (Auto) 3.7 % 4.3 % 3.3 % Monocytes (%) (Auto) 10.0 % 6.9 % 3.4 % Eosinophils (%) (Auto) 0.0 % 0.1 % 0.0 % Basophils (%) (Auto) 0.2 % 0.3 % 0.3 % Neutrophils # (Auto) 31.2 TH/MM3 37.3 TH/MM3 41.2 TH/MM3 Lymphocytes # (Auto) 1.4 TH/MM3 1.8 TH/MM3 1.5 TH/MM3 Monocytes # (Auto) 3.6 TH/MM3 2.9 TH/MM3 1.5 TH/MM3 Eosinophils # (Auto) 0.0 TH/MM3 0.0 TH/MM3 0.0 TH/MM3 Basophils # (Auto) 0.1 TH/MM3 0.1 TH/MM3 0.1 TH/MM3 CBC Comment AUTO DIFF AUTO DIFF AUTO DIFF Differential Total Cells Counted 100 100 100 Neutrophils % (Manual) 84 % 82 % 86 % Band Neutrophils % 3 % 4 % 5 % Lymphocytes % 3 % 6 % 5 % Monocytes % 9 % 7 % 3 % Neutrophils # (Manual) 31.9 TH/MM3 36.3 TH/MM3 40.8 TH/MM3 Myelocytes 1 % 1 % Nucleated Red Blood Cells 1 /100 WBC Differential Comment FINAL DIFF MANUAL FINAL DIFF MANUAL FINAL DIFF MANUAL Platelet Estimate NORMAL NORMAL NORMAL Platelet Morphology Comment ENLARGED ENLARGED NORMAL Plasma Cells 1 % Toxic Granulation 1+ 1+ Toxic Vacuolation PRESENT PRESENT Dohle Bodies PRESENT Laboratory Tests Test 02/23/18 17:31 02/23/18 17:41 02/23/18 23:15 02/24/18 12:50 Blood Urea Nitrogen 16 MG/DL 15 MG/DL Creatinine 1.42 MG/DL 1.31 MG/DL Random Glucose 101 MG/DL 92 MG/DL Total Protein 8.5 GM/DL 7.6 GM/DL Albumin 2.4 GM/DL 2.0 GM/DL Calcium Level 8.9 MG/DL 8.4 MG/DL Alkaline Phosphatase 113 U/L 97 U/L Aspartate Amino Transf (AST/SGOT) 44 U/L 36 U/L Alanine Aminotransferase (ALT/SGPT) 23 U/L 16 U/L Total Bilirubin 0.8 MG/DL 0.8 MG/DL Sodium Level 129 MEQ/L 134 MEQ/L Potassium Level 3.6 MEQ/L 4.0 MEQ/L Chloride Level 93 MEQ/L 101 MEQ/L Carbon Dioxide Level 24.8 MEQ/L 25.1 MEQ/L Anion Gap 11 MEQ/L 8 MEQ/L Estimat Glomerular Filtration Rate 63 ML/MIN 70 ML/MIN Troponin I LESS THAN 0.02 NG/ML LESS THAN 0.02 NG/ML LESS THAN 0.02 NG/ML Lactic Acid Level 1.6 mmol/L Total Creatine Kinase 303 U/L 426 U/L Creatine Kinase MB LESS THAN 0.5 NG/ML Creatine Kinase MB % 0.1 % Test 02/25/18 06:00 Blood Urea Nitrogen 16 MG/DL Creatinine 1.15 MG/DL Random Glucose 143 MG/DL Total Protein 7.5 GM/DL Albumin 1.9 GM/DL Calcium Level 8.4 MG/DL Phosphorus Level 3.2 MG/DL Magnesium Level 2.7 MG/DL Alkaline Phosphatase 96 U/L Aspartate Amino Transf (AST/SGOT) 28 U/L Alanine Aminotransferase (ALT/SGPT) 13 U/L Total Bilirubin 0.6 MG/DL Sodium Level 139 MEQ/L Potassium Level 3.4 MEQ/L Chloride Level 104 MEQ/L Carbon Dioxide Level 24.5 MEQ/L Anion Gap 11 MEQ/L Estimat Glomerular Filtration Rate 81 ML/MIN Microbiology Date/Time Source Procedure Growth Status 02/23/18 17:41 Blood Peripheral Aerobic Blood Culture - Preliminary NO GROWTH IN 2 DAYS Resulted 02/23/18 17:41 Blood Peripheral Anaerobic Blood Culture - Preliminary NO GROWTH IN 2 DAYS Resulted 02/23/18 17:31 Blood Peripheral Aerobic Blood Culture - Preliminary NO GROWTH IN 2 DAYS Resulted 02/23/18 17:31 Blood Peripheral Anaerobic Blood Culture - Preliminary NO GROWTH IN 2 DAYS Resulted 02/24/18 00:08 Sputum Expectorated Sputum Gram Stain - Final Resulted 02/24/18 00:08 Sputum Expectorated Sputum Sputum Culture - Preliminary HEAVY GROWTH NORMAL RESPIRATORY DAVID... Resulted 02/24/18 00:08 Sputum Expectorated Sputum Acid Fast Stain - Final NO ACID FAST BACILLI SEEN Resulted 02/24/18 00:08 Sputum Expectorated Sputum Mycobacterial Culture Pending Resulted 02/23/18 18:08 Nasal Aspirate Influenza Types A,B Antigen (CHRISTAL) - Final NEGATIVE FOR FLU A AND B ANTIGEN.... Complete Imaging Last Impressions Chest Ultrasound 02/25/18 0000 Signed Impressions: Service Date/Time: January 10:42 - CONCLUSION: Left pleural effusion is too small and loculated for ultrasound-guided thoracentesis. CT guided thoracentesis is recommended. Ramin Angulo MD Chest X-Ray 02/24/18 0000 Signed Impressions: Service Date/Time: Saturday, February 24, 2018 18:59 - CONCLUSION: Persistent pleural-parenchymal disease at the left mid and lower lung. A pneumothorax is not seen. Melvin Child MD Chest CT 02/23/18 0000 Signed Impressions: Service Date/Time: Friday, February 23, 2018 19:12 - CONCLUSION: Consolidation throughout the left lower lobe with a mild to moderate left pleural effusion. This is likely secondary to inflammatory/infectious process although other underlying processes cannot be excluded. There is cavitary change in the left lung base. Melvin Child MD Physical Exam CONSTITUTIONAL/GENERAL: This is an adequately nourished patient, in no apparent distress. TUBES/LINES/DRAINS: SKIN: No jaundice, rashes, or lesions. Ecchymoses on upper extremities. No wounds seen anteriorly. Skin temperature appropriate. Not diaphoretic. CARDIOVASCULAR: Regular rate and rhythm without murmurs, gallops, or rubs. No JVD. Peripheral pulses symmetric. RESPIRATORY/CHEST: Symmetric, unlabored respirations. L sided rhonchi to auscultation. Breath sounds equal bilaterally. No wheezes, rales GASTROINTESTINAL: Abdomen soft, non-tender, nondistended. No hepato-splenomegaly , or palpable masses. No guarding. Bowel sounds present. GENITOURINARY: Without palpable bladder distension. MUSCULOSKELETAL: Extremities without clubbing, cyanosis, or edema. No joint tenderness or effusion noted. No calf tenderness. No mottling or clubbing. LYMPHATICS: No palpable cervical or supraclavicular adenopathy. NEUROLOGICAL: Awake and alert. Motor and sensory grossly within normal limits. Follows commands. Clear speech. Moves all extremities. PSYCHIATRIC: No obvious anxiety/depression. no apparent hallucinations or other psychotic thought process. Assessment & Plan Remarks Casvitary PNA Increased TB risk (incarcerated) no prior TB h/o Worsening leukocytosis - sterroids may contribute, but still a pretty high leukocytsosis HIV negative cont светлана [place] for now fu routine, AFB cl quantiferron Britney Romero MD Feb 25, 2018 13:20
[2018-02-25 17:44] LABS: % SATURATION IRON PROFILE 11.9 % (20-50); IRON (FE) 20 MCG/DL (65-175); TOTAL IRON BINDING CAPACITY 168 MCG/DL (250-450)
[2018-02-25 17:47] LABS: FERRITIN 1173 NG/ML (26-388)
[2018-02-25] MEDS: PRAVASTATIN SOD 80 MG TAB PO SCH (21:48)
[2018-02-25] MEDS: VANCOMYCIN INJ 2,000 MG in SODIUM CHLORID 0.9% 500 ML INJ 500 ML IV SCH (21:49)
[2018-02-26] VITALS (9 sets, daily range): BP systolic 112–138; BP diastolic 59–75; PULSE 74–101; RESP 18–22; TEMP 98.8–100; O2SAT 91–95
[2018-02-26] MEDS: PIPERACIL-TAZO 4.5 GM PREMIX 100 ML IV SCH ×4 (00:16→18:10)
[2018-02-26] MEDS: RESP: ALBUTEROL 2.5 MG/IPRATROPIUM 0.5 MG NEB (SCH) NEB ×4 (03:49→20:51)
[2018-02-26] MEDS: HEPARIN SODIUM - SQ 10,000 UNITS/ML VIAL SQ SCH ×3 (05:50→21:22)
[2018-02-26 07:48] LABS: AUTOMATED NEUTROPHIL # 41.6 TH/MM3 (1.8-7.7); BASOPHIL # 0.1 TH/MM3 (0-0.2); BASOPHIL % 0.2 % (0.0-2.0); HEMATOCRIT 28.6 % (39.0-51.0); HEMOGLOBIN 9.5 GM/DL (13.0-17.0); LYMPH % 4.2 % (9.0-44.0); LYMPHOCYTE # 1.9 TH/MM3 (1.0-4.8); MEAN CELL VOLUME 89.8 FL (80.0-100.0); MEAN CORPUSCULAR HEMOGLOBIN 29.8 PG (27.0-34.0); MEAN CORPUSCULAR HGB CONC 33.2 % (32.0-36.0); MEAN PLATELET VOLUME 8.3 FL (7.0-11.0); MONO % 3.9 % (0.0-8.0); MONOCYTE # 1.8 TH/MM3 (0-0.9); NEUT % 91.7 % (16.0-70.0); PLATELET COUNT 323 TH/MM3 (150-450); RED BLOOD COUNT 3.18 MIL/MM3 (4.50-5.90); RED CELL DISTRIBUTION WIDTH 14.4 % (11.6-17.2); WHITE BLOOD COUNT 45.3 TH/MM3 (4.0-11.0)
[2018-02-26 08:31] LABS: BICARBONATE 24.1 MEQ/L (21.0-32.0); CALCIUM 8.2 MG/DL (8.5-10.1); CREATININE 1.18 MG/DL (0.60-1.30); MAGNESIUM 2.5 MG/DL (1.5-2.5)
[2018-02-26] MEDS: guaiFENesin/DEXTROMETHORPHAN 200 MG/20 MG/10 ML CUP PO PRN ×2 (08:33→20:30)
[2018-02-26] MEDS: VANCOMYCIN INJ 2,000 MG in SODIUM CHLORID 0.9% 500 ML INJ 500 ML IV SCH (08:33)
[2018-02-26] MEDS: SODIUM CHLORIDE 0.9% FLUSH 10 ML FLUSH IV FLUSH SCH ×2 (08:34→20:30)
[2018-02-26] MEDS: predniSONE 20 MG TAB PO SCH (08:34)
[2018-02-26 08:46] LABS: BANDS 6 % (0-6); LYMPHOCYTES 8 % (9-44); MONOCYTES 2 % (0-8); NEUTROPHIL # MANUAL DIFF 40.3 TH/MM3 (1.8-7.7); PLASMA CELLS 1 % (0-0); POLYS (SEG NEUTROPHILS) 83 % (16-70); TOXIC GRANULATION 1+ (NORMAL); TOXIC VACUOLATION PRESENT (NONE SEEN)
[2018-02-26] MEDS ORDERED: POTASSIUM CHLORIDE 10 MEQ CONTROLLED RELEASE TAB PO ONE (10:00)
[2018-02-26] MEDS: FERROUS SULFATE 325 MG (65 MG ELEMENTAL IRON) TAB PO SCH ×2 (10:54→20:30)
--- NOTE | 2018-02-26 14:33 | HHI.PR ---
Subjective Remarks Follow-up pneumonia. Improving shortness of breath. Still with loose stools. While being examined, patient reported that he got dizzy. Vital signs are stable. He appears to be malingering. According to nursing staff, [facility] stating they can assume care of the patient as long as patient is negative for TB and C. difficile. Discussed with infectious disease Objective Vitals Vital Signs Date Time Temp Pulse Resp B/P (MAP) Pulse Ox O2 Delivery O2 Flow Rate FiO2 02/26/18 12:00 99.2 74 22 112/75 (87) 94 02/26/18 08:52 95 21 02/26/18 08:00 98.8 82 22 127/66 (86) 94 02/26/18 04:00 Room Air 02/26/18 04:00 86 02/26/18 04:00 99.4 101 18 126/59 (81) 91 02/26/18 00:00 99.5 91 20 138/64 (88) 91 02/26/18 00:00 Room Air 02/26/18 00:00 97 02/25/18 20:45 92 02/25/18 20:00 97.6 97 20 142/75 (97) 92 02/25/18 20:00 Room Air 02/25/18 20:00 91 02/25/18 16:02 98.4 86 17 144/85 (104) 94 02/25/18 16:00 88 I/O 02/25/18 02/25/18 02/25/18 02/26/18 02/26/18 02/26/18 06:59 14:59 22:59 06:59 14:59 22:59 Intake Total 480 ml 840 ml Output Total 1200 ml 800 ml 600 ml Balance -1200 ml -320 ml 240 ml Intake Oral 480 ml 840 ml Output Urine Total 1200 ml 800 ml 600 ml # Bowel Movements 1 2 Result Diagram: 02/26/1872402/26/18724 Imaging Last Impressions Chest Ultrasound 02/25/18 0000 Signed Impressions: Service Date/Time: January 10:42 - CONCLUSION: Left pleural effusion is too small and loculated for ultrasound-guided thoracentesis. CT guided thoracentesis is recommended. Ramin Angulo MD Chest X-Ray 02/24/18 0000 Signed Impressions: Service Date/Time: Saturday, February 24, 2018 18:59 - CONCLUSION: Persistent pleural-parenchymal disease at the left mid and lower lung. A pneumothorax is not seen. Melvin Child MD Chest CT 02/23/18 0000 Signed Impressions: Service Date/Time: Friday, February 23, 2018 19:12 - CONCLUSION: Consolidation throughout the left lower lobe with a mild to moderate left pleural effusion. This is likely secondary to inflammatory/infectious process although other underlying processes cannot be excluded. There is cavitary change in the left lung base. Melvin Child MD Objective Remarks Well-developed and well-nourished in no distress AAOx3, nonfocal Warm dry skin with no lesions S1-S2 present with regular rate and rhythm, no murmur rubs or gallops. Bilateral lung with decreased breath sounds and dullness to percussion of left hemithorax Abdomen is soft, nontender nondistended No edema in lower extremities. No cyanosis Procedures none A/P Problem List: (1) Sepsis ICD Code: A41.9 - Sepsis, unspecified organism Status: Acute (2) Pneumonia ICD Code: J18.9 - Pneumonia, unspecified organism Status: Acute (3) Reactive airway disease ICD Code: J45.909 - Unspecified asthma, uncomplicated (4) Pleural effusion, left ICD Code: J90 - Pleural effusion, not elsewhere classified Assessment and Plan Mr. 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 Chest x-ray showed left base consolidation consistent with pneumonia. The patient was admitted to the hospitalist service for medical treatment. 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 -Clinically stable but worsening leukocytosis which could be contributed by steroids. Continue IV vancomycin and Zosyn and follow-up AFB culture. AFB stain negative, MTB PCR negative and sputum culture with normal maggie. Nebulizations and oxygen as needed. Wean p.o. steroids Parapneumonic effusion Chest x-ray and CT of the chest reviewed by me shows left lower lung consolidation and a mild to moderate left pleural effusion. Ultrasound shows small amount of fluid not safe for thoracentesis. Atypical chest pain troponin negative 3. Chest pain resolved likely secondary to COPD exacerbation and pneumonia. Diarrhea likely secondary to antibiotics. C. difficile negative. Lactinex. Hyponatremia Resolved disc normal saline. Continue to monitor BMP. Acute kidney injury Suspect prerenal azotemia from dehydration due to sepsis secondary to pneumonia and COPD exacerbation. Resolving discontinue IV fluids and continue to monitor. Mild transaminitis in patient with history of liver failure This is resolved with negative hepatitis panel. Likely secondary to sepsis Normocytic anemia Normocytic anemia. Continue to monitor CBC. Transfuse to keep hemoglobin at least 8. Check iron studies and guaiac stools (negative 1) DVT propylaxis - Heparin 5000 units subcu every 8 hours Discharge Planning Patient with cavitary pneumonia, COPD exacerbation, left pleural effusion. Patient on broad-spectrum IV antibiotics, ID consulted. [facility] will [facility] to [facility] if cleared by ID Problem Qualifiers (1) Sepsis: Qualified Codes: A41.9 - Sepsis, unspecified organism (2) Pneumonia: Qualified Codes: J18.1 - Lobar pneumonia, unspecified organism Johnny Astorga MD Feb 26, 2018 14:33
[2018-02-26] MEDS ORDERED: FERR325T20 PO (16:08)
[2018-02-26] MEDS ORDERED: LACT PO (16:08)
[2018-02-26] MEDS ORDERED: Albuterol-Ipratropium Neb NEB (16:08)
--- NOTE | 2018-02-26 16:08 | HHI.DCPOC ---
Discharge Care Plan Diagnosis: (1) Pneumonia Your Health Problems Are: Difficulty with ADL Exercise Tolerance Goals to Promote Your Health * To prevent worsening of your condition and complications * To maintain your health at the optimal level Directions to Meet Your Goals Take your medications as prescribed Follow your dietary instruction Follow activity as directed Keep your appointments as scheduled Take your immunizations and boosters as scheduled If your symptoms worsen call your PCP, if no PCP go to Urgent Care Center or Emergency Room Smoking is Dangerous to Your Health. Avoid second hand smoke Call the 24-hour hour crisis hotline for domestic abuse at Johnny Astorga MD Feb 26, 2018 16:08
--- NOTE | 2018-02-26 16:11 | HHI.IDPN ---
Subjective Subjective Remarks wbc stays up @ 46 K On sterroids afebrile + diarrhea, + mild RLQ abd pain cont to have productive cough with green sputum resp clx with normal resp maggie Antibiotics zosyn vanco Allergies: Coded Allergies: atorvastatin (Verified Adverse Reaction, Severe, Liver failure, 02/23/18) Objective . Vital Signs Date Time Temp Pulse Resp B/P (MAP) Pulse Ox O2 Delivery O2 Flow Rate FiO2 02/26/18 12:00 99.2 74 22 112/75 (87) 94 02/26/18 08:52 95 21 02/26/18 08:00 98.8 82 22 127/66 (86) 94 02/26/18 04:00 Room Air 02/26/18 04:00 86 02/26/18 04:00 99.4 101 18 126/59 (81) 91 02/26/18 00:00 99.5 91 20 138/64 (88) 91 02/26/18 00:00 Room Air 02/26/18 00:00 97 02/25/18 20:45 92 02/25/18 20:00 97.6 97 20 142/75 (97) 92 02/25/18 20:00 Room Air 02/25/18 20:00 91 . Laboratory Tests Test 02/25/18 06:08 02/26/18 07:25 White Blood Count 44.3 TH/MM3 45.3 TH/MM3 Red Blood Count 3.35 MIL/MM3 3.18 MIL/MM3 Hemoglobin 10.1 GM/DL 9.5 GM/DL Hematocrit 30.1 % 28.6 % Mean Corpuscular Volume 89.6 FL 89.8 FL Mean Corpuscular Hemoglobin 30.1 PG 29.8 PG Mean Corpuscular Hemoglobin Concent 33.7 % 33.2 % Red Cell Distribution Width 14.2 % 14.4 % Platelet Count 327 TH/MM3 323 TH/MM3 Mean Platelet Volume 8.9 FL 8.3 FL Neutrophils (%) (Auto) 93.0 % 91.7 % Lymphocytes (%) (Auto) 3.3 % 4.2 % Monocytes (%) (Auto) 3.4 % 3.9 % Eosinophils (%) (Auto) 0.0 % 0.0 % Basophils (%) (Auto) 0.3 % 0.2 % Neutrophils # (Auto) 41.2 TH/MM3 41.6 TH/MM3 Lymphocytes # (Auto) 1.5 TH/MM3 1.9 TH/MM3 Monocytes # (Auto) 1.5 TH/MM3 1.8 TH/MM3 Eosinophils # (Auto) 0.0 TH/MM3 0.0 TH/MM3 Basophils # (Auto) 0.1 TH/MM3 0.1 TH/MM3 CBC Comment AUTO DIFF AUTO DIFF Differential Total Cells Counted 100 100 Neutrophils % (Manual) 86 % 83 % Band Neutrophils % 5 % 6 % Lymphocytes % 5 % 8 % Monocytes % 3 % 2 % Neutrophils # (Manual) 40.8 TH/MM3 40.3 TH/MM3 Myelocytes 1 % Differential Comment FINAL DIFF MANUAL FINAL DIFF MANUAL Toxic Granulation 1+ 1+ Toxic Vacuolation PRESENT PRESENT Platelet Estimate NORMAL NORMAL Platelet Morphology Comment NORMAL NORMAL Plasma Cells 1 % Laboratory Tests Test 02/25/18 06:00 02/26/18 07:25 Blood Urea Nitrogen 16 MG/DL 21 MG/DL Creatinine 1.15 MG/DL 1.18 MG/DL Random Glucose 143 MG/DL 124 MG/DL Total Protein 7.5 GM/DL Albumin 1.9 GM/DL Calcium Level 8.4 MG/DL 8.2 MG/DL Phosphorus Level 3.2 MG/DL Magnesium Level 2.7 MG/DL 2.5 MG/DL Alkaline Phosphatase 96 U/L Aspartate Amino Transf (AST/SGOT) 28 U/L Alanine Aminotransferase (ALT/SGPT) 13 U/L Total Bilirubin 0.6 MG/DL Sodium Level 139 MEQ/L 138 MEQ/L Potassium Level 3.4 MEQ/L 3.3 MEQ/L Chloride Level 104 MEQ/L 105 MEQ/L Carbon Dioxide Level 24.5 MEQ/L 24.1 MEQ/L Anion Gap 11 MEQ/L 9 MEQ/L Estimat Glomerular Filtration Rate 81 ML/MIN 79 ML/MIN Iron Level 20 MCG/DL Total Iron Binding Capacity 168 MCG/DL Percent Iron Saturation 11.9 % Ferritin 1173 NG/ML Microbiology Date/Time Source Procedure Growth Status 02/23/18 17:41 Blood Peripheral Aerobic Blood Culture - Preliminary NO GROWTH IN 3 DAYS Resulted 02/23/18 17:41 Blood Peripheral Anaerobic Blood Culture - Preliminary NO GROWTH IN 3 DAYS Resulted 02/23/18 17:31 Blood Peripheral Aerobic Blood Culture - Preliminary NO GROWTH IN 3 DAYS Resulted 02/23/18 17:31 Blood Peripheral Anaerobic Blood Culture - Preliminary NO GROWTH IN 3 DAYS Resulted 02/26/18 07:00 Stool Stool Stool Occult Blood (CHRISTAL) - Final HEMOCCULT NEGATIVE Complete 02/24/18 00:08 Sputum Expectorated Sputum Gram Stain - Final Complete 02/24/18 00:08 Sputum Expectorated Sputum Sputum Culture - Final HEAVY GROWTH NORMAL RESPIRATORY MAGGIE Complete 02/24/18 00:08 Sputum Expectorated Sputum Acid Fast Stain - Final NO ACID FAST BACILLI SEEN Resulted 02/24/18 00:08 Sputum Expectorated Sputum Mycobacterial Culture Pending Resulted 02/23/18 18:08 Nasal Aspirate Influenza Types A,B Antigen (CHRISTAL) - Final NEGATIVE FOR FLU A AND B ANTIGEN.... Complete Imaging Last Impressions Chest Ultrasound 02/25/18 0000 Signed Impressions: Service Date/Time: January 10:42 - CONCLUSION: Left pleural effusion is too small and loculated for ultrasound-guided thoracentesis. CT guided thoracentesis is recommended. Ramin Angulo MD Chest X-Ray 02/24/18 0000 Signed Impressions: Service Date/Time: Saturday, February 24, 2018 18:59 - CONCLUSION: Persistent pleural-parenchymal disease at the left mid and lower lung. A pneumothorax is not seen. Melvin Child MD Chest CT 02/23/18 0000 Signed Impressions: Service Date/Time: Friday, February 23, 2018 19:12 - CONCLUSION: Consolidation throughout the left lower lobe with a mild to moderate left pleural effusion. This is likely secondary to inflammatory/infectious process although other underlying processes cannot be excluded. There is cavitary change in the left lung base. Melvin Child MD Physical Exam CONSTITUTIONAL/GENERAL: This is an adequately nourished patient, in no apparent distress. TUBES/LINES/DRAINS: SKIN: No jaundice, rashes, or lesions. Ecchymoses on upper extremities. No wounds seen anteriorly. Skin temperature appropriate. Not diaphoretic. CARDIOVASCULAR: Regular rate and rhythm without murmurs, gallops, or rubs. No JVD. Peripheral pulses symmetric. RESPIRATORY/CHEST: Symmetric, unlabored respirations. L sided rhonchi to auscultation. Breath sounds equal bilaterally. No wheezes, rales GASTROINTESTINAL: Abdomen soft, mildly tender RLQ to palpation, nondistended. No hepato-splenomegaly, or palpable masses. No guarding. Bowel sounds present. GENITOURINARY: Without palpable bladder distension. MUSCULOSKELETAL: Extremities without clubbing, cyanosis, or edema. No joint tenderness or effusion noted. No calf tenderness. No mottling or clubbing. LYMPHATICS: No palpable cervical or supraclavicular adenopathy. NEUROLOGICAL: Awake and alert. Motor and sensory grossly within normal limits. Follows commands. Clear speech. Moves all extremities. PSYCHIATRIC: No obvious anxiety/depression. no apparent hallucinations or other psychotic thought process. Assessment & Plan Remarks Cavitary PNA Increased TB risk (incarcerated) no prior TB h/o Worsening leukocytosis - sterroids may contribute, but still a pretty high leukocytsosis diarrhea, RLQ good and unexplained leukocytosis HIV negative cont javi segovia vanco fu routine, AFB cl fu quantiferron CT abd/pel chk fungal sputum Britney Romero MD Feb 26, 2018 16:11
--- NOTE | 2018-02-26 16:15 | HHI.DS ---
Discharge Summary Admission Date Feb 23, 2018 at 19:28 Discharge Date: Feb 27, 2018 Admitting Diagnosis sepsis, pneumonia (1) Sepsis ICD Code: A41.9 - Sepsis, unspecified organism Diagnosis: Principal Status: Acute (2) Pneumonia ICD Code: J18.9 - Pneumonia, unspecified organism Status: Acute (3) Reactive airway disease ICD Code: J45.909 - Unspecified asthma, uncomplicated (4) Pleural effusion, left ICD Code: J90 - Pleural effusion, not elsewhere classified Procedures none Brief History - From Admission Mr. 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 Chest x-ray showed left base consolidation consistent with pneumonia. The patient was admitted to the hospitalist service for medical treatment. The patient is seen in the emergency room. He states that he has had symptoms for the past 3 weeks including productive cough with green sputum, left-sided atypical chest pain, and shortness of breath. He reports some episodes of mild hemoptysis. He reports fever, chills, nausea, vomiting, and diarrhea accompanying his symptoms. He reports feeling better now that he is in the emergency room and has started to receive treatment. Symptoms are reported as severe. CBC/BMP: 02/26/18 0725 02/26/18 0725 Significant Findings Laboratory Tests Test 02/23/18 17:31 02/23/18 17:41 02/23/18 23:15 02/24/18 12:50 White Blood Count 36.3 TH/MM3 (4.0-11.0) 42.2 TH/MM3 (4.0-11.0) Red Blood Count 3.91 MIL/MM3 (4.50-5.90) 3.58 MIL/MM3 (4.50-5.90) Hemoglobin 12.0 GM/DL (13.0-17.0) 10.8 GM/DL (13.0-17.0) Hematocrit 34.8 % (39.0-51.0) 32.7 % (39.0-51.0) Neutrophils (%) (Auto) 86.1 % (16.0-70.0) 88.4 % (16.0-70.0) Lymphocytes (%) (Auto) 3.7 % (9.0-44.0) 4.3 % (9.0-44.0) Monocytes (%) (Auto) 10.0 % (0.0-8.0) Neutrophils # (Auto) 31.2 TH/MM3 (1.8-7.7) 37.3 TH/MM3 (1.8-7.7) Monocytes # (Auto) 3.6 TH/MM3 (0-0.9) 2.9 TH/MM3 (0-0.9) Neutrophils % (Manual) 84 % (16-70) 82 % (16-70) Lymphocytes % 3 % (9-44) 6 % (9-44) Monocytes % 9 % (0-8) Neutrophils # (Manual) 31.9 TH/MM3 (1.8-7.7) 36.3 TH/MM3 (1.8-7.7) Myelocytes 1 % (0-0) Nucleated Red Blood Cells 1 /100 WBC (0-0) Platelet Morphology Comment ENLARGED (NORMAL) ENLARGED (NORMAL) Creatinine 1.42 MG/DL (0.60-1.30) 1.31 MG/DL (0.60-1.30) Total Protein 8.5 GM/DL (6.4-8.2) Albumin 2.4 GM/DL (3.4-5.0) 2.0 GM/DL (3.4-5.0) Aspartate Amino Transf (AST/SGOT) 44 U/L (15-37) Sodium Level 129 MEQ/L (136-145) 134 MEQ/L (136-145) Chloride Level 93 MEQ/L (98-107) Estimat Glomerular Filtration Rate 63 ML/MIN (>89) 70 ML/MIN (>89) Troponin I LESS THAN 0.02 NG/ML LESS THAN 0.02 NG/ML LESS THAN 0.02 NG/ML Plasma Cells 1 % (0-0) Toxic Granulation 1+ (NORMAL) Toxic Vacuolation PRESENT (NONE SEEN) Dohle Bodies PRESENT (NONE SEEN) Calcium Level 8.4 MG/DL (8.5-10.1) Total Creatine Kinase 426 U/L (39-308) Creatine Kinase MB LESS THAN 0.5 NG/ML Test 02/24/18 19:31 02/25/18 06:00 02/25/18 06:08 02/25/18 09:23 Activated Partial Thromboplast Time 31.3 SEC (24.3-30.1) 31.3 SEC (24.3-30.1) Random Glucose 143 MG/DL (74-106) Albumin 1.9 GM/DL (3.4-5.0) Calcium Level 8.4 MG/DL (8.5-10.1) Magnesium Level 2.7 MG/DL (1.5-2.5) Potassium Level 3.4 MEQ/L (3.5-5.1) Estimat Glomerular Filtration Rate 81 ML/MIN (>89) Iron Level 20 MCG/DL (65-175) Total Iron Binding Capacity 168 MCG/DL (250-450) Percent Iron Saturation 11.9 % (20-50) Ferritin 1173 NG/ML (26-388) White Blood Count 44.3 TH/MM3 (4.0-11.0) Red Blood Count 3.35 MIL/MM3 (4.50-5.90) Hemoglobin 10.1 GM/DL (13.0-17.0) Hematocrit 30.1 % (39.0-51.0) Neutrophils (%) (Auto) 93.0 % (16.0-70.0) Lymphocytes (%) (Auto) 3.3 % (9.0-44.0) Neutrophils # (Auto) 41.2 TH/MM3 (1.8-7.7) Monocytes # (Auto) 1.5 TH/MM3 (0-0.9) Neutrophils % (Manual) 86 % (16-70) Lymphocytes % 5 % (9-44) Neutrophils # (Manual) 40.8 TH/MM3 (1.8-7.7) Myelocytes 1 % (0-0) Toxic Granulation 1+ (NORMAL) Toxic Vacuolation PRESENT (NONE SEEN) Test 02/25/18 12:50 02/25/18 15:09 02/26/18 07:00 02/26/18 07:25 White Blood Count 45.3 TH/MM3 (4.0-11.0) Red Blood Count 3.18 MIL/MM3 (4.50-5.90) Hemoglobin 9.5 GM/DL (13.0-17.0) Hematocrit 28.6 % (39.0-51.0) Neutrophils (%) (Auto) 91.7 % (16.0-70.0) Lymphocytes (%) (Auto) 4.2 % (9.0-44.0) Neutrophils # (Auto) 41.6 TH/MM3 (1.8-7.7) Monocytes # (Auto) 1.8 TH/MM3 (0-0.9) Neutrophils % (Manual) 83 % (16-70) Lymphocytes % 8 % (9-44) Neutrophils # (Manual) 40.3 TH/MM3 (1.8-7.7) Plasma Cells 1 % (0-0) Toxic Granulation 1+ (NORMAL) Toxic Vacuolation PRESENT (NONE SEEN) Blood Urea Nitrogen 21 MG/DL (7-18) Random Glucose 124 MG/DL (74-106) Calcium Level 8.2 MG/DL (8.5-10.1) Potassium Level 3.3 MEQ/L (3.5-5.1) Estimat Glomerular Filtration Rate 79 ML/MIN (>89) Imaging Last Impressions Chest Ultrasound 02/25/18 0000 Signed Impressions: Service Date/Time: January 10:42 - CONCLUSION: Left pleural effusion is too small and loculated for ultrasound-guided thoracentesis. CT guided thoracentesis is recommended. Ramin Angulo MD Chest X-Ray 02/24/18 0000 Signed Impressions: Service Date/Time: Saturday, February 24, 2018 18:59 - CONCLUSION: Persistent pleural-parenchymal disease at the left mid and lower lung. A pneumothorax is not seen. Melvin Child MD Chest CT 02/23/18 0000 Signed Impressions: Service Date/Time: Friday, February 23, 2018 19:12 - CONCLUSION: Consolidation throughout the left lower lobe with a mild to moderate left pleural effusion. This is likely secondary to inflammatory/infectious process although other underlying processes cannot be excluded. There is cavitary change in the left lung base. Melvin Child MD PE at Discharge Well-developed and well-nourished in no distress AAOx3, nonfocal Warm dry skin with no lesions S1-S2 present with regular rate and rhythm, no murmur rubs or gallops. Bilateral lung with decreased breath sounds and dullness to percussion of left hemithorax Abdomen is soft, nontender nondistended No edema in lower extremities. No cyanosis Hospital Course Mr. 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 Chest x-ray showed left base consolidation consistent with pneumonia. The patient was admitted to the hospitalist service for medical treatment. 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 Improving leukocytosis which could be contributed by steroids. Also with low- grade temperature. Continue IV Zosyn and follow-up sputum AFB and fungal cultures. AFB stain negative, MTB PCR negative and sputum culture with normal maggie. Nebulizations and oxygen as needed. Wean p.o. steroids. CTA of the abdomen pelvis has been ordered by ID Parapneumonic effusion Chest x-ray and CT of the chest reviewed by me shows left lower lung consolidation and a mild to moderate left pleural effusion. Ultrasound shows small amount of fluid not safe for thoracentesis. Atypical chest pain troponin negative 3. Chest pain resolved likely secondary to COPD exacerbation and pneumonia. Diarrhea likely secondary to antibiotics. C. difficile negative. Lactinex. Resolved discontinued normal saline. Continue to monitor BMP. Acute kidney injury Suspect prerenal azotemia from dehydration due to sepsis secondary to pneumonia and COPD exacerbation. Resolving discontinue IV fluids and continue to monitor. Mild transaminitis in patient with history of liver failure This is resolved with negative hepatitis panel. Likely secondary to sepsis Normocytic anemia Normocytic anemia. Continue to monitor CBC. Transfuse to keep hemoglobin at least 8. Check iron studies and guaiac stools (negative 1) DVT propylaxis - Heparin 5000 units subcu every 8 hours Pt Condition on Discharge: Stable Discharge Disposition: Trnsfr to Other Facility Discharge Time: > 30 minutes Discharge Instructions DIET: Follow Instructions for: Heart Healthy Diet Activities you can perform: Regular-No Restrictions Activities to Avoid: Driving Follow up Referrals: PCP Follow-up - 1 Week New Medications: Ferrous Sulfate (Ferosul) 325 Mg (65 Mg Iron) Tablet 325 MG PO BID for Build Red Blood Cells, #60 TAB Lactobacillus Acidophilus (Acidophilus/l-Sporogenes) 35 Million Cell-25 Million Cell Tab 1 TAB PO TID for Bowel Management, #60 TAB [Albuterol-Ipratropium Neb] () 1 AMPULE NEBU 1 AMPULE NEB Q6HR NEB for Breathing Treatment, #30 NEBULE Continued Medications: Simvastatin (Simvastatin) 40 Mg Tab 40 MG PO HS for Cholesterol Management, #30 TAB 0 Refills Additional Information Antibiotics per infectious disease Johnny Astorga MD Feb 26, 2018 16:15
[2018-02-26] MEDS: LACTOBACILLUS ACIDOPHILUS TAB PO SCH (18:10)
[2018-02-26] MEDS: PRAVASTATIN SOD 80 MG TAB PO SCH (20:30)
[2018-02-27] VITALS (9 sets, daily range): BP systolic 120–144; BP diastolic 60–76; PULSE 69–100; RESP 20; TEMP 99.4–101.1; O2SAT 92–98
[2018-02-27] MEDS: PIPERACIL-TAZO 4.5 GM PREMIX 100 ML IV SCH ×5 (01:15→23:52)
[2018-02-27] MEDS: RESP: ALBUTEROL 2.5 MG/IPRATROPIUM 0.5 MG NEB (SCH) NEB ×4 (04:00→20:50)
[2018-02-27 05:09] LABS: AUTOMATED NEUTROPHIL # 27.5 TH/MM3 (1.8-7.7); BASOPHIL % 0.1 % (0.0-2.0); HEMOGLOBIN 9.4 GM/DL (13.0-17.0); LYMPH % 10.1 % (9.0-44.0); LYMPHOCYTE # 3.3 TH/MM3 (1.0-4.8); MEAN CELL VOLUME 89.9 FL (80.0-100.0); MEAN CORPUSCULAR HGB CONC 33.4 % (32.0-36.0); MEAN PLATELET VOLUME 8.4 FL (7.0-11.0); MONO % 4.5 % (0.0-8.0); MONOCYTE # 1.5 TH/MM3 (0-0.9); NEUT % 85.3 % (16.0-70.0); PLATELET COUNT 361 TH/MM3 (150-450); RED BLOOD COUNT 3.12 MIL/MM3 (4.50-5.90); RED CELL DISTRIBUTION WIDTH 14.5 % (11.6-17.2); WHITE BLOOD COUNT 32.3 TH/MM3 (4.0-11.0)
[2018-02-27] MEDS: ACETAMINOPHEN 325 MG TAB PO PRN ×3 (05:28→20:56)
[2018-02-27 05:29] LABS: BICARBONATE 24.6 MEQ/L (21.0-32.0); CALCIUM 8.1 MG/DL (8.5-10.1); CREATININE 1.05 MG/DL (0.60-1.30); MAGNESIUM 2.2 MG/DL (1.5-2.5)
[2018-02-27] MEDS: HEPARIN SODIUM - SQ 10,000 UNITS/ML VIAL SQ SCH ×3 (05:30→21:05)
[2018-02-27 06:45] LABS: BANDS 2 % (0-6); LYMPHOCYTES 4 % (9-44); METAMYELOCYTES 1 % (0-1); MONOCYTES 5 % (0-8); NEUTROPHIL # MANUAL DIFF 28.7 TH/MM3 (1.8-7.7); PLASMA CELLS 2 % (0-0); POLYS (SEG NEUTROPHILS) 86 % (16-70)
[2018-02-27 06:46] LABS: TOXIC VACUOLATION PRESENT (NONE SEEN)
[2018-02-27] MEDS ORDERED: DIATRIZOATE MEGLUM/DIATRIZOATE SOD 9 ML CUP PO ONE (07:30)
[2018-02-27] MEDS: predniSONE 20 MG TAB PO SCH (08:16)
[2018-02-27] MEDS: FERROUS SULFATE 325 MG (65 MG ELEMENTAL IRON) TAB PO SCH ×2 (08:16→20:55)
[2018-02-27] MEDS: LACTOBACILLUS ACIDOPHILUS TAB PO SCH ×3 (08:16→17:09)
[2018-02-27] MEDS: SODIUM CHLORIDE 0.9% FLUSH 10 ML FLUSH IV FLUSH SCH ×2 (08:16→20:57)
[2018-02-27] MEDS ORDERED: PHARMACY ORDERED LAB ONE (08:45)
--- NOTE | 2018-02-27 11:05 | HHI.PR ---
Subjective Remarks Follow-up pneumonia. Improving shortness of breath. Continues to have loose stools. Discussed with nursing. Objective Vitals Vital Signs Date Time Temp Pulse Resp B/P (MAP) Pulse Ox O2 Delivery O2 Flow Rate FiO2 02/27/18 10:04 95 21 02/27/18 08:00 Room Air 02/27/18 08:00 70 02/27/18 08:00 99.9 79 20 120/60 (80) 95 02/27/18 04:56 100.6 77 20 130/65 (86) 94 02/27/18 00:00 99.7 80 20 138/67 (90) 95 02/26/18 20:54 94 21 02/26/18 20:00 100.0 82 20 132/66 (88) 95 02/26/18 19:00 Room Air 02/26/18 17:00 81 02/26/18 16:00 99.4 79 22 136/65 (88) 95 02/26/18 12:00 76 02/26/18 12:00 99.2 74 22 112/75 (87) 94 I/O 02/26/18 02/26/18 02/26/18 02/27/18 02/27/18 02/27/18 07:00 15:00 23:00 07:00 15:00 23:00 Intake Total 840 ml 600 ml 1520 ml 360 ml Output Total 600 ml 1345 ml Balance 240 ml 600 ml 1520 ml -985 ml Intake Oral 840 ml 720 ml 360 ml IV Total 600 ml 800 ml Output Urine Total 600 ml 1345 ml # Voids 6 # Bowel Movements 2 2 1 Result Diagram: 02/27/18 0415 02/27/18 0415 Imaging Last Impressions Chest Ultrasound 02/25/18 0000 Signed Impressions: Service Date/Time: January 10:42 - CONCLUSION: Left pleural effusion is too small and loculated for ultrasound-guided thoracentesis. CT guided thoracentesis is recommended. Ramin Angulo MD Chest X-Ray 02/24/18 0000 Signed Impressions: Service Date/Time: Saturday, February 24, 2018 18:59 - CONCLUSION: Persistent pleural-parenchymal disease at the left mid and lower lung. A pneumothorax is not seen. Melvin Child MD Chest CT 02/23/18 0000 Signed Impressions: Service Date/Time: Friday, February 23, 2018 19:12 - CONCLUSION: Consolidation throughout the left lower lobe with a mild to moderate left pleural effusion. This is likely secondary to inflammatory/infectious process although other underlying processes cannot be excluded. There is cavitary change in the left lung base. Melvin Child MD Objective Remarks Well-developed and well-nourished in no distress AAOx3, nonfocal Warm dry skin with no lesions S1-S2 present with regular rate and rhythm, no murmur rubs or gallops. Bilateral lung with decreased breath sounds and dullness to percussion of left hemithorax Abdomen is soft, nontender nondistended No edema in lower extremities. No cyanosis No significant change in PE from previous Procedures none A/P Problem List: (1) Sepsis ICD Code: A41.9 - Sepsis, unspecified organism Status: Acute (2) Pneumonia ICD Code: J18.9 - Pneumonia, unspecified organism Status: Acute (3) Reactive airway disease ICD Code: J45.909 - Unspecified asthma, uncomplicated (4) Pleural effusion, left ICD Code: J90 - Pleural effusion, not elsewhere classified Assessment and Plan Mr. 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 Chest x-ray showed left base consolidation consistent with pneumonia. The patient was admitted to the hospitalist service for medical treatment. 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 Improving leukocytosis which could be contributed by steroids. Also with low- grade temperature. Continue IV Zosyn and follow-up sputum AFB and fungal cultures. AFB stain negative, MTB PCR negative and sputum culture with normal maggie. Nebulizations and oxygen as needed. Wean p.o. steroids. CTA of the abdomen pelvis has been ordered by ID Parapneumonic effusion Chest x-ray and CT of the chest reviewed by me shows left lower lung consolidation and a mild to moderate left pleural effusion. Ultrasound shows small amount of fluid not safe for thoracentesis. Atypical chest pain troponin negative 3. Chest pain resolved likely secondary to COPD exacerbation and pneumonia. Diarrhea likely secondary to antibiotics. C. difficile negative. Lactinex. Resolved discontinued normal saline. Continue to monitor BMP. Acute kidney injury Suspect prerenal azotemia from dehydration due to sepsis secondary to pneumonia and COPD exacerbation. Resolving discontinue IV fluids and continue to monitor. Mild transaminitis in patient with history of liver failure This is resolved with negative hepatitis panel. Likely secondary to sepsis Normocytic anemia Normocytic anemia. Continue to monitor CBC. Transfuse to keep hemoglobin at least 8. Check iron studies and guaiac stools (negative 1) DVT propylaxis - Heparin 5000 units subcu every 8 hours Discharge Planning Patient with cavitary pneumonia, COPD exacerbation, left pleural effusion. Patient on broad-spectrum IV antibiotic, ID consulted. We will transfer back to [facility] if cleared by ID Problem Qualifiers (1) Sepsis: Qualified Codes: A41.9 - Sepsis, unspecified organism (2) Pneumonia: Qualified Codes: J18.1 - Lobar pneumonia, unspecified organism Johnny Astorga MD Feb 27, 2018 11:05
--- NOTE | 2018-02-27 15:25 | HHI.IDPN ---
Subjective Subjective Remarks wbc down to 32 K cont to have diarrhea no abd pain today + fever 100.6 Antibiotics zosyn vanco Allergies: Coded Allergies: atorvastatin (Verified Adverse Reaction, Severe, Liver failure, 02/23/18) Objective . Vital Signs Date Time Temp Pulse Resp B/P (MAP) Pulse Ox O2 Delivery O2 Flow Rate FiO2 02/27/18 12:00 99.4 69 20 144/76 (98) 95 02/27/18 10:04 95 21 02/27/18 08:00 Room Air 02/27/18 08:00 70 02/27/18 08:00 99.9 79 20 120/60 (80) 95 02/27/18 04:56 100.6 77 20 130/65 (86) 94 02/27/18 00:00 99.7 80 20 138/67 (90) 95 02/26/18 20:54 94 21 02/26/18 20:00 100.0 82 20 132/66 (88) 95 02/26/18 19:00 Room Air 02/26/18 17:00 81 02/26/18 16:00 99.4 79 22 136/65 (88) 95 . Laboratory Tests Test 02/26/18 07:25 02/27/18 04:15 White Blood Count 45.3 TH/MM3 32.3 TH/MM3 Red Blood Count 3.18 MIL/MM3 3.12 MIL/MM3 Hemoglobin 9.5 GM/DL 9.4 GM/DL Hematocrit 28.6 % 28.0 % Mean Corpuscular Volume 89.8 FL 89.9 FL Mean Corpuscular Hemoglobin 29.8 PG 30.0 PG Mean Corpuscular Hemoglobin Concent 33.2 % 33.4 % Red Cell Distribution Width 14.4 % 14.5 % Platelet Count 323 TH/MM3 361 TH/MM3 Mean Platelet Volume 8.3 FL 8.4 FL Neutrophils (%) (Auto) 91.7 % 85.3 % Lymphocytes (%) (Auto) 4.2 % 10.1 % Monocytes (%) (Auto) 3.9 % 4.5 % Eosinophils (%) (Auto) 0.0 % 0.0 % Basophils (%) (Auto) 0.2 % 0.1 % Neutrophils # (Auto) 41.6 TH/MM3 27.5 TH/MM3 Lymphocytes # (Auto) 1.9 TH/MM3 3.3 TH/MM3 Monocytes # (Auto) 1.8 TH/MM3 1.5 TH/MM3 Eosinophils # (Auto) 0.0 TH/MM3 0.0 TH/MM3 Basophils # (Auto) 0.1 TH/MM3 0.0 TH/MM3 CBC Comment AUTO DIFF AUTO DIFF Differential Total Cells Counted 100 100 Neutrophils % (Manual) 83 % 86 % Band Neutrophils % 6 % 2 % Lymphocytes % 8 % 4 % Monocytes % 2 % 5 % Neutrophils # (Manual) 40.3 TH/MM3 28.7 TH/MM3 Differential Comment FINAL DIFF MANUAL FINAL DIFF MANUAL Plasma Cells 1 % 2 % Toxic Granulation 1+ Toxic Vacuolation PRESENT PRESENT Platelet Estimate NORMAL NORMAL Platelet Morphology Comment NORMAL NORMAL Metamyelocytes 1 % Laboratory Tests Test 02/26/18 07:25 02/27/18 04:15 Blood Urea Nitrogen 21 MG/DL 17 MG/DL Creatinine 1.18 MG/DL 1.05 MG/DL Random Glucose 124 MG/DL 93 MG/DL Calcium Level 8.2 MG/DL 8.1 MG/DL Magnesium Level 2.5 MG/DL 2.2 MG/DL Sodium Level 138 MEQ/L 139 MEQ/L Potassium Level 3.3 MEQ/L 3.7 MEQ/L Chloride Level 105 MEQ/L 107 MEQ/L Carbon Dioxide Level 24.1 MEQ/L 24.6 MEQ/L Anion Gap 9 MEQ/L 7 MEQ/L Estimat Glomerular Filtration Rate 79 ML/MIN 90 ML/MIN Microbiology Date/Time Source Procedure Growth Status 02/26/18 07:00 Stool Stool Stool Occult Blood ([facility]) - Final HEMOCCULT NEGATIVE Complete 02/26/18 16:20 Sputum Expectorated Sputum Fungal Smear - Final RARE BUDDING YEAST CELLS Resulted 02/26/18 16:20 Sputum Expectorated Sputum Fungal Culture Pending Resulted Imaging Last Impressions Chest Ultrasound 02/25/18 0000 Signed Impressions: Service Date/Time: January 10:42 - CONCLUSION: Left pleural effusion is too small and loculated for ultrasound-guided thoracentesis. CT guided thoracentesis is recommended. Ramin Angulo MD Chest X-Ray 02/24/18 0000 Signed Impressions: Service Date/Time: Saturday, February 24, 2018 18:59 - CONCLUSION: Persistent pleural-parenchymal disease at the left mid and lower lung. A pneumothorax is not seen. Melvin Child MD Chest CT 02/23/18 0000 Signed Impressions: Service Date/Time: Friday, February 23, 2018 19:12 - CONCLUSION: Consolidation throughout the left lower lobe with a mild to moderate left pleural effusion. This is likely secondary to inflammatory/infectious process although other underlying processes cannot be excluded. There is cavitary change in the left lung base. Melvin Child MD Physical Exam CONSTITUTIONAL/GENERAL: This is an adequately nourished patient, in no apparent distress. TUBES/LINES/DRAINS: SKIN: No jaundice, rashes, or lesions. Ecchymoses on upper extremities. No wounds seen anteriorly. Skin temperature appropriate. Not diaphoretic. CARDIOVASCULAR: Regular rate and rhythm without murmurs, gallops, or rubs. No JVD. Peripheral pulses symmetric. RESPIRATORY/CHEST: Symmetric, unlabored respirations. L sided rhonchi to auscultation. Breath sounds equal bilaterally. No wheezes, rales GASTROINTESTINAL: Abdomen soft, minimally tender RLQ to palpation, nondistended. No hepato-splenomegaly, or palpable masses. No guarding. Bowel sounds present. GENITOURINARY: Without palpable bladder distension. MUSCULOSKELETAL: Extremities without clubbing, cyanosis, or edema. No joint tenderness or effusion noted. No calf tenderness. No mottling or clubbing. LYMPHATICS: No palpable cervical or supraclavicular adenopathy. NEUROLOGICAL: Awake and alert. Motor and sensory grossly within normal limits. Follows commands. Clear speech. Moves all extremities. PSYCHIATRIC: No obvious anxiety/depression. no apparent hallucinations or other psychotic thought process. Assessment & Plan Remarks Cavitary PNA Increased TB risk (incarcerated) no prior TB h/o Worsening leukocytosis - sterroids may contribute, but still a pretty high leukocytsosis diarrhea, RLQ good and unexplained leukocytosis HIV negative cont zosyn, fu routine, AFB cl fu quantiferron will fu CT abd/pel chk fungal sputum Britney Romero MD Feb 27, 2018 15:25
[2018-02-27] MEDS ORDERED: IOHEXOL 350 MG/ML 10 ML VIAL (for RAD DIAG) IVCONTRAST ONE (15:27)
--- NOTE | 2018-02-27 16:53 | RADRPT ---
EXAM DATE/TIME: 02/27/2018 14:19 [facility] COMPARISON: No previous studies available for comparison. INDICATIONS : Mild right lower quadrant pain, diarrhea. IV CONTRAST: 100 cc Omnipaque 350 (iohexol) IV ORAL CONTRAST: No oral contrast ingested. RADIATION DOSE: 7.29 CTDIvol (mGy) MEDICAL HISTORY : Cardiovascular disease. Stroke Hypertension. SURGICAL HISTORY : None. ENCOUNTER: Initial ACUITY: 1 day PAIN SCALE: 3/10 LOCATION: Right lower quadrant TECHNIQUE: Volumetric scanning of the abdomen and pelvis was performed. Using automated exposure control and ad justment of the mA and/or kV according to patient size, radiation dose was kept as low as reasonably achievable to obtain optimal diagnostic quality images. DICOM format image data is available electro nically for review and comparison. FINDINGS: There is a multiloculated fluid collection in the left hemithorax which contains multiple locules of air as well. Primary differential diagnosis is an empyema. There is consolidation and atelectasis in the lower left lung as well. Mild fatty liver. Spleen, adrenals, kidneys and pancreas demonstrate no acute findings. There is mild anasarca. No pelvic masses. A small amount of free fluid is present. CONCLUSION: 1. Multiloculated air and fluid collection in the left hemithorax similar to recent chest CT concerni ng for a left sided empyema with adjacent lung consolidation and atelectasis. 2. Mild anasarca. Trace free fluid. No obstruction or free air. Balaji Stapleton MD on February 27, 2018 at 16:41 Board Certified Radiologist. This report was verified electronically.
[2018-02-27] MEDS: PRAVASTATIN SOD 80 MG TAB PO SCH (21:00)
[2018-02-27] MEDS: guaiFENesin/DEXTROMETHORPHAN 200 MG/20 MG/10 ML CUP PO PRN (21:02)
[2018-02-28] VITALS (10 sets, daily range): BP systolic 125–158; BP diastolic 62–86; PULSE 79–106; RESP 17–20; TEMP 99.8–102.7; O2SAT 93–95
[2018-02-28] MEDS: ACETAMINOPHEN 325 MG TAB PO PRN ×2 (04:01→17:03)
[2018-02-28] MEDS: RESP: ALBUTEROL 2.5 MG/IPRATROPIUM 0.5 MG NEB (SCH) NEB ×4 (04:52→21:02)
[2018-02-28] MEDS: HEPARIN SODIUM - SQ 10,000 UNITS/ML VIAL SQ SCH ×3 (05:29→21:23)
[2018-02-28] MEDS: PIPERACIL-TAZO 4.5 GM PREMIX 100 ML IV SCH ×3 (05:29→17:03)
[2018-02-28 08:15] LABS: AUTOMATED NEUTROPHIL # 35.7 TH/MM3 (1.8-7.7); BASOPHIL % 0.1 % (0.0-2.0); HEMATOCRIT 29.7 % (39.0-51.0); HEMOGLOBIN 9.8 GM/DL (13.0-17.0); LYMPHOCYTE # 3.3 TH/MM3 (1.0-4.8); MEAN CELL VOLUME 91.8 FL (80.0-100.0); MEAN CORPUSCULAR HEMOGLOBIN 30.4 PG (27.0-34.0); MEAN CORPUSCULAR HGB CONC 33.1 % (32.0-36.0); MEAN PLATELET VOLUME 7.9 FL (7.0-11.0); MONO % 4.8 % (0.0-8.0); NEUT % 87.1 % (16.0-70.0); PLATELET COUNT 433 TH/MM3 (150-450); RED BLOOD COUNT 3.24 MIL/MM3 (4.50-5.90); RED CELL DISTRIBUTION WIDTH 14.4 % (11.6-17.2)
[2018-02-28 08:39] LABS: BICARBONATE 26.3 MEQ/L (21.0-32.0); CALCIUM 8.1 MG/DL (8.5-10.1); CREATININE 1.02 MG/DL (0.60-1.30); MAGNESIUM 2.2 MG/DL (1.5-2.5)
[2018-02-28 09:21] LABS: BANDS 1 % (0-6); LYMPHOCYTES 8 % (9-44); MONOCYTES 5 % (0-8); NEUTROPHIL # MANUAL DIFF 35.7 TH/MM3 (1.8-7.7); POLYS (SEG NEUTROPHILS) 86 % (16-70)
--- NOTE | 2018-02-28 09:26 | HHI.PR ---
Addendum to Inpatient Note Additional Information CT noted AGagin fever up to 102.7 WBC 41 K Needs chest tube ( IR procedure ordered) will add vanco sputum/blood clx CT dw radiologist dw Britney Pham MD Feb 28, 2018 09:26
[2018-02-28] MEDS ORDERED: Vancomycin Consult Pharmacy 1 EA OTHER SCH (09:45)
[2018-02-28] MEDS: LACTOBACILLUS ACIDOPHILUS TAB PO SCH ×3 (10:09→17:03)
[2018-02-28] MEDS: FERROUS SULFATE 325 MG (65 MG ELEMENTAL IRON) TAB PO SCH ×2 (10:09→21:23)
[2018-02-28] MEDS: SODIUM CHLORIDE 0.9% FLUSH 10 ML FLUSH IV FLUSH SCH ×2 (10:09→21:26)
[2018-02-28] MEDS: VANCOMYCIN 1,500 MG/NS 500 ML IV SCH ×4 (10:39→22:49)
--- NOTE | 2018-02-28 11:10 | HHI.PR ---
Subjective Remarks Follow-up pneumonia and diarrhea. T-max 102. Still complaining of intermittent loose stools. Discussed with nursing and infectious disease Objective Vitals Vital Signs Date Time Temp Pulse Resp B/P (MAP) Pulse Ox O2 Delivery O2 Flow Rate FiO2 02/28/18 08:00 99.8 87 20 130/64 (86) 95 02/28/18 05:29 100.1 02/28/18 05:26 102.7 95 20 128/62 (84) 94 02/28/18 04:03 91 02/28/18 04:00 Room Air 02/28/18 00:08 94 02/28/18 00:00 100.5 95 20 132/65 (87) 95 02/28/18 00:00 Room Air 02/27/18 21:00 Room Air 02/27/18 20:58 98 21 02/27/18 20:03 87 02/27/18 20:00 101.1 100 20 134/67 (89) 92 02/27/18 16:00 100.8 84 20 126/60 (82) 95 02/27/18 16:00 70 02/27/18 12:00 99.4 69 20 144/76 (98) 95 I/O 02/27/18 02/27/18 02/27/18 02/28/18 02/28/18 02/28/18 07:00 15:00 23:00 07:00 15:00 23:00 Intake Total 360 ml 720 ml 560 ml Output Total 1345 ml 800 ml 1000 ml Balance -985 ml -80 ml -440 ml Intake Oral 360 ml 720 ml 360 ml IV Total 200 ml Output Urine Total 1345 ml 800 ml 1000 ml # Bowel Movements 1 2 1 Result Diagram: 02/28/18 0625 02/28/18 0625 Imaging Last Impressions Abdomen/Pelvis CT 02/26/18 0000 Signed Impressions: Service Date/Time: Tuesday, February 27, 2018 14:19 - CONCLUSION: 1. Multiloculated air and fluid collection in the left hemithorax similar to recent chest CT concerning for a left sided empyema with adjacent lung consolidation and atelectasis. 2. Mild anasarca. Trace free fluid. No obstruction or free air. Balaji Stapleton MD Chest Ultrasound 02/25/18 0000 Signed Impressions: Service Date/Time: January 10:42 - CONCLUSION: Left pleural effusion is too small and loculated for ultrasound-guided thoracentesis. CT guided thoracentesis is recommended. Ramin Angulo MD Chest X-Ray 02/24/18 0000 Signed Impressions: Service Date/Time: Saturday, February 24, 2018 18:59 - CONCLUSION: Persistent pleural-parenchymal disease at the left mid and lower lung. A pneumothorax is not seen. Melvin Child MD Chest CT 02/23/18 0000 Signed Impressions: Service Date/Time: Friday, February 23, 2018 19:12 - CONCLUSION: Consolidation throughout the left lower lobe with a mild to moderate left pleural effusion. This is likely secondary to inflammatory/infectious process although other underlying processes cannot be excluded. There is cavitary change in the left lung base. Melvin Child MD Objective Remarks Well-developed and well-nourished in no distress AAOx3, nonfocal Warm dry skin with no lesions S1-S2 present with regular rate and rhythm, no murmur rubs or gallops. Bilateral lung with decreased breath sounds and dullness to percussion of left hemithorax Abdomen is soft, nontender nondistended No edema in lower extremities. No cyanosis Procedures none A/P Problem List: (1) Sepsis ICD Code: A41.9 - Sepsis, unspecified organism Status: Acute (2) Pneumonia ICD Code: J18.9 - Pneumonia, unspecified organism Status: Acute (3) Reactive airway disease ICD Code: J45.909 - Unspecified asthma, uncomplicated (4) Pleural effusion, left ICD Code: J90 - Pleural effusion, not elsewhere classified Assessment and Plan Mr. 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 Chest x-ray showed left base consolidation consistent with pneumonia. The patient was admitted to the hospitalist service for medical treatment. 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 Parapneumonic effusion Chest x-ray and CT of the chest reviewed by me shows left lower lung consolidation and a mild to moderate left pleural effusion. Ultrasound shows small amount of fluid not safe for thoracentesis. Clinically worse with spiking temperature and worsening leukocytosis. Discussed with ID restart IV vancomycin and continue IV Zosyn and follow-up sputum AFB and fungal cultures. Repeat sputum and blood cultures. Fungal smear with rare budding yeast cell, AFB stain negative, MTB PCR negative and sputum culture with normal maggie. Nebulizations and oxygen as needed. S/p steroids. CTA of the abdomen pelvis with loculated empyema will consult CTS Atypical chest pain troponin negative 3. Chest pain resolved likely secondary to COPD exacerbation and pneumonia. Diarrhea likely secondary to antibiotics. C. difficile negative. Lactinex. Resolved discontinued normal saline. Continue to monitor BMP. Acute kidney injury Suspect prerenal azotemia from dehydration due to sepsis secondary to pneumonia and COPD exacerbation. Resolving discontinue IV fluids and continue to monitor. Mild transaminitis in patient with history of liver failure This is resolved with negative hepatitis panel. Likely secondary to sepsis Normocytic anemia Normocytic anemia. Continue to monitor CBC. Transfuse to keep hemoglobin at least 8. Guaiac stools (negative 1) DVT propylaxis - Heparin 5000 units subcu every 8 hours Discharge Planning Patient with cavitary pneumonia, COPD exacerbation, left pleural effusion still with spiking temperature. Patient on broad-spectrum IV antibiotics, ID consulted. Not ready for discharge Problem Qualifiers (1) Sepsis: Qualified Codes: A41.9 - Sepsis, unspecified organism (2) Pneumonia: Qualified Codes: J18.1 - Lobar pneumonia, unspecified organism Johnny Astorga MD Feb 28, 2018 11:10
[2018-02-28] MEDS ORDERED: POTASSIUM CHLORIDE 10 MEQ CAP PO ONE (13:15)
[2018-02-28] MEDS ORDERED: ONDANSETRON HCL 4 MG/2 ML VIAL IV PUSH PRN (21:00)
[2018-02-28] MEDS: PRAVASTATIN SOD 80 MG TAB PO SCH (21:23)
[2018-03-01] VITALS (16 sets, daily range): BP systolic 102–150; BP diastolic 59–93; PULSE 76–100; RESP 17–20; TEMP 98.5–100.7; O2SAT 92–98
[2018-03-01] MEDS: PIPERACIL-TAZO 4.5 GM PREMIX 100 ML IV SCH ×4 (00:07→18:23)
[2018-03-01] MEDS: ACETAMINOPHEN 325 MG TAB PO PRN ×4 (00:08→19:51)
[2018-03-01] MEDS: RESP: ALBUTEROL 2.5 MG/IPRATROPIUM 0.5 MG NEB (SCH) NEB ×3 (04:34→21:52)
[2018-03-01] MEDS: HEPARIN SODIUM - SQ 10,000 UNITS/ML VIAL SQ SCH ×3 (05:43→22:18)
[2018-03-01 07:22] LABS: AUTOMATED NEUTROPHIL # 32.9 TH/MM3 (1.8-7.7); BASOPHIL # 0.1 TH/MM3 (0-0.2); BASOPHIL % 0.2 % (0.0-2.0); HEMATOCRIT 29.3 % (39.0-51.0); HEMOGLOBIN 9.7 GM/DL (13.0-17.0); LYMPH % 6.7 % (9.0-44.0); LYMPHOCYTE # 2.5 TH/MM3 (1.0-4.8); MEAN CORPUSCULAR HEMOGLOBIN 29.7 PG (27.0-34.0); MEAN PLATELET VOLUME 7.7 FL (7.0-11.0); MONO % 4.6 % (0.0-8.0); MONOCYTE # 1.7 TH/MM3 (0-0.9); NEUT % 88.5 % (16.0-70.0); PLATELET COUNT 528 TH/MM3 (150-450); RED BLOOD COUNT 3.25 MIL/MM3 (4.50-5.90); RED CELL DISTRIBUTION WIDTH 14.3 % (11.6-17.2); WHITE BLOOD COUNT 37.2 TH/MM3 (4.0-11.0)
[2018-03-01 07:42] LABS: BICARBONATE 24.6 MEQ/L (21.0-32.0); CALCIUM 8.2 MG/DL (8.5-10.1); CREATININE 0.92 MG/DL (0.60-1.30); MAGNESIUM 2.3 MG/DL (1.5-2.5)
[2018-03-01 09:12] LABS: BANDS 1 % (0-6); LYMPHOCYTES 4 % (9-44); MONOCYTES 3 % (0-8); NEUTROPHIL # MANUAL DIFF 34.6 TH/MM3 (1.8-7.7); POLYS (SEG NEUTROPHILS) 92 % (16-70)
[2018-03-01 09:13] LABS: TOXIC GRANULATION 1+ (NORMAL)
[2018-03-01] MEDS: SODIUM CHLORIDE 0.9% FLUSH 10 ML FLUSH IV FLUSH SCH ×2 (10:17→19:55)
[2018-03-01] MEDS: LACTOBACILLUS ACIDOPHILUS TAB PO SCH ×3 (10:17→18:22)
[2018-03-01] MEDS: FERROUS SULFATE 325 MG (65 MG ELEMENTAL IRON) TAB PO SCH ×2 (10:17→19:51)
[2018-03-01] MEDS ORDERED: PHARMACY ORDERED LAB ONE (10:45)
[2018-03-01] MEDS: VANCOMYCIN 1,500 MG/NS 500 ML IV SCH ×2 (10:58)
--- NOTE | 2018-03-01 11:11 | HHI.PR ---
Subjective Remarks Follow-up pneumonia. Complains of pleuritic chest and left mid back pain. Improved diarrhea. Discussed with nursing, ID and interventional radiology Objective Vitals Vital Signs Date Time Temp Pulse Resp B/P (MAP) Pulse Ox O2 Delivery O2 Flow Rate FiO2 03/01/18 09:31 98 03/01/18 08:00 100.7 92 20 102/72 (82) 98 03/01/18 04:36 93 21 03/01/18 04:01 78 03/01/18 04:00 99.8 86 17 146/76 (99) 93 03/01/18 02:45 99.6 03/01/18 00:00 100.5 100 17 147/78 (101) 92 03/01/18 00:00 90 02/28/18 21:25 Room Air 02/28/18 20:00 86 02/28/18 20:00 100.0 88 17 152/86 (108) 95 02/28/18 16:00 100.9 94 20 158/72 (100) 94 02/28/18 16:00 106 02/28/18 15:10 93 21 02/28/18 12:00 99.8 86 20 125/62 (83) 94 02/28/18 12:00 97 I/O 02/28/18 02/28/18 02/28/18 03/01/18 03/01/18 03/01/18 07:00 15:00 23:00 07:00 15:00 23:00 Intake Total 560 ml 720 ml 855 ml Output Total 1000 ml 1100 ml 2500 ml Balance -440 ml -380 ml -1645 ml Intake Oral 360 ml 720 ml 240 ml IV Total 200 ml 615 ml Output Urine Total 1000 ml 1100 ml 2500 ml # Bowel Movements 1 1 0 Result Diagram: 03/01/18 0622 03/01/18 06 Imaging Last Impressions Abdomen/Pelvis CT 02/26/18 0000 Signed Impressions: Service Date/Time: Tuesday, February 27, 2018 14:19 - CONCLUSION: 1. Multiloculated air and fluid collection in the left hemithorax similar to recent chest CT concerning for a left sided empyema with adjacent lung consolidation and atelectasis. 2. Mild anasarca. Trace free fluid. No obstruction or free air. Balaji Stapleton MD Chest Ultrasound 02/25/18 0000 Signed Impressions: Service Date/Time: January 10:42 - CONCLUSION: Left pleural effusion is too small and loculated for ultrasound-guided thoracentesis. CT guided thoracentesis is recommended. Ramin Angulo MD Chest X-Ray 02/24/18 0000 Signed Impressions: Service Date/Time: Saturday, February 24, 2018 18:59 - CONCLUSION: Persistent pleural-parenchymal disease at the left mid and lower lung. A pneumothorax is not seen. Melvin Child MD Chest CT 02/23/18 0000 Signed Impressions: Service Date/Time: Friday, February 23, 2018 19:12 - CONCLUSION: Consolidation throughout the left lower lobe with a mild to moderate left pleural effusion. This is likely secondary to inflammatory/infectious process although other underlying processes cannot be excluded. There is cavitary change in the left lung base. Mevlin Child MD Objective Remarks Well-developed and well-nourished in no distress AAOx3, nonfocal Warm dry skin with no lesions S1-S2 present with regular rate and rhythm, no murmur rubs or gallops. Bilateral lung with decreased breath sounds and dullness to percussion of left hemithorax Abdomen is soft, nontender nondistended No edema in lower extremities. No cyanosis Procedures none A/P Problem List: (1) Sepsis ICD Code: A41.9 - Sepsis, unspecified organism Status: Acute (2) Pneumonia ICD Code: J18.9 - Pneumonia, unspecified organism Status: Acute (3) Reactive airway disease ICD Code: J45.909 - Unspecified asthma, uncomplicated (4) Pleural effusion, left ICD Code: J90 - Pleural effusion, not elsewhere classified Assessment and Plan Mr. 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 Chest x-ray showed left base consolidation consistent with pneumonia. The patient was admitted to the hospitalist service for medical treatment. 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 Parapneumonic effusion Chest x-ray and CT of the chest reviewed by me shows left lower lung consolidation and a mild to moderate left pleural effusion. Ultrasound shows small amount of fluid not safe for thoracentesis. Clinically worse with spiking temperature and worsening leukocytosis. Discussed with ID restarted IV vancomycin and continue IV Zosyn and follow-up sputum AFB and fungal cultures. Repeat sputum and blood cultures. Fungal smear with rare budding yeast cell, AFB stain negative, MTB PCR negative and sputum culture with normal maggie. Nebulizations and oxygen as needed. S/p steroids. CTA of the abdomen pelvis with loculated empyema will consult CTS. Also discussed with IR who will attempt to do CT guided thoracentesis and send fluid for studies. Incentive spirometry Atypical chest pain troponin negative 3. Chest pain resolved likely secondary to COPD exacerbation and pneumonia. Diarrhea likely secondary to antibiotics. C. difficile negative. Lactinex. Resolved discontinued normal saline. Continue to monitor BMP. Acute kidney injury Suspect prerenal azotemia from dehydration due to sepsis secondary to pneumonia and COPD exacerbation. Resolving discontinue IV fluids and continue to monitor. Complaining of difficulty voiding check urinalysis Mild transaminitis in patient with history of liver failure This is resolved with negative hepatitis panel. Likely secondary to sepsis Normocytic anemia Normocytic anemia. Continue to monitor CBC. Transfuse to keep hemoglobin at least 8. Guaiac stools (negative 1) DVT propylaxis - Heparin 5000 units subcu every 8 hours Discharge Planning Patient with cavitary pneumonia, COPD exacerbation, left pleural effusion still with spiking temperature. Patient on broad-spectrum IV antibiotics, ID consulted. Not ready for discharge Problem Qualifiers (1) Sepsis: Qualified Codes: A41.9 - Sepsis, unspecified organism (2) Pneumonia: Qualified Codes: J18.1 - Lobar pneumonia, unspecified organism Johnny Astorga MD Mar 01, 2018 11:11
--- NOTE | 2018-03-01 13:11 | HHI.IDPN ---
Subjective Subjective Remarks overnight fever up to 103 WBC went up again to 42 K vancomycin was added yday today just low grade fever c/o pleuritic CP, mostly on the [place] Antibiotics luca sotomayor Allergies: Coded Allergies: atorvastatin (Verified Adverse Reaction, Severe, Liver failure, 02/23/18) Objective . Vital Signs Date Time Temp Pulse Resp B/P (MAP) Pulse Ox O2 Delivery O2 Flow Rate FiO2 03/01/18 09:31 98 03/01/18 08:00 100.7 92 20 102/72 (82) 98 03/01/18 04:36 93 21 03/01/18 04:01 78 03/01/18 04:00 99.8 86 17 146/76 (99) 93 03/01/18 02:45 99.6 03/01/18 00:00 100.5 100 17 147/78 (101) 92 03/01/18 00:00 90 02/28/18 21:25 Room Air 02/28/18 20:00 86 02/28/18 20:00 100.0 88 17 152/86 (108) 95 02/28/18 16:00 100.9 94 20 158/72 (100) 94 02/28/18 16:00 106 02/28/18 15:10 93 21 . Laboratory Tests Test 02/28/18 06:25 03/01/18 06:22 White Blood Count 41.0 TH/MM3 37.2 TH/MM3 Red Blood Count 3.24 MIL/MM3 3.25 MIL/MM3 Hemoglobin 9.8 GM/DL 9.7 GM/DL Hematocrit 29.7 % 29.3 % Mean Corpuscular Volume 91.8 FL 90.0 FL Mean Corpuscular Hemoglobin 30.4 PG 29.7 PG Mean Corpuscular Hemoglobin Concent 33.1 % 33.0 % Red Cell Distribution Width 14.4 % 14.3 % Platelet Count 433 TH/MM3 528 TH/MM3 Mean Platelet Volume 7.9 FL 7.7 FL Neutrophils (%) (Auto) 87.1 % 88.5 % Lymphocytes (%) (Auto) 8.0 % 6.7 % Monocytes (%) (Auto) 4.8 % 4.6 % Eosinophils (%) (Auto) 0.0 % 0.0 % Basophils (%) (Auto) 0.1 % 0.2 % Neutrophils # (Auto) 35.7 TH/MM3 32.9 TH/MM3 Lymphocytes # (Auto) 3.3 TH/MM3 2.5 TH/MM3 Monocytes # (Auto) 2.0 TH/MM3 1.7 TH/MM3 Eosinophils # (Auto) 0.0 TH/MM3 0.0 TH/MM3 Basophils # (Auto) 0.0 TH/MM3 0.1 TH/MM3 CBC Comment AUTO DIFF AUTO DIFF Differential Total Cells Counted 100 100 Neutrophils % (Manual) 86 % 92 % Band Neutrophils % 1 % 1 % Lymphocytes % 8 % 4 % Monocytes % 5 % 3 % Neutrophils # (Manual) 35.7 TH/MM3 34.6 TH/MM3 Differential Comment FINAL DIFF MANUAL FINAL DIFF MANUAL Platelet Estimate NORMAL HIGH Platelet Morphology Comment NORMAL NORMAL Red Cell Morphology Comment NORMAL Toxic Granulation 1+ Laboratory Tests Test 02/28/18 06:25 03/01/18 06:22 Blood Urea Nitrogen 12 MG/DL 10 MG/DL Creatinine 1.02 MG/DL 0.92 MG/DL Random Glucose 81 MG/DL 94 MG/DL Calcium Level 8.1 MG/DL 8.2 MG/DL Magnesium Level 2.2 MG/DL 2.3 MG/DL Sodium Level 138 MEQ/L 135 MEQ/L Potassium Level 3.6 MEQ/L 3.5 MEQ/L Chloride Level 103 MEQ/L 102 MEQ/L Carbon Dioxide Level 26.3 MEQ/L 24.6 MEQ/L Anion Gap 9 MEQ/L 8 MEQ/L Estimat Glomerular Filtration Rate 93 ML/MIN 105 ML/MIN Microbiology Date/Time Source Procedure Growth Status 03/01/18 06:22 Blood Peripheral Aerobic Blood Culture Pending Received 03/01/18 06:22 Blood Peripheral Anaerobic Blood Culture Pending Received 02/28/18 17:40 Blood Peripheral Aerobic Blood Culture - Preliminary NO GROWTH IN 1 DAY Resulted 02/28/18 17:40 Blood Peripheral Anaerobic Blood Culture - Preliminary NO GROWTH IN 1 DAY Resulted 02/28/18 13:50 Sputum Expectorated Sputum Gram Stain - Final Resulted 02/28/18 13:50 Sputum Expectorated Sputum Sputum Culture - Preliminary HEAVY GROWTH NORMAL RESPIRATORY DAVID... Resulted 02/26/18 16:20 Sputum Expectorated Sputum Fungal Smear - Final RARE BUDDING YEAST CELLS Resulted 02/26/18 16:20 Fungal Culture - Preliminary Yeast-Id To Follow Resulted Imaging Last Impr Last Impressions Abdomen/Pelvis CT 02/26/18 0000 Signed Impressions: Service Date/Time: Tuesday, February 27, 2018 14:19 - CONCLUSION: 1. Multiloculated air and fluid collection in the left hemithorax similar to recent chest CT concerning for a left sided empyema with adjacent lung consolidation and atelectasis. 2. Mild anasarca. Trace free fluid. No obstruction or free air. Balaji Stapleton MD Chest Ultrasound 02/25/18 0000 Signed Impressions: Service Date/Time: January 10:42 - CONCLUSION: Left pleural effusion is too small and loculated for ultrasound-guided thoracentesis. CT guided thoracentesis is recommended. Ramin Angulo MD Chest X-Ray 02/24/18 0000 Signed Impressions: Service Date/Time: Saturday, February 24, 2018 18:59 - CONCLUSION: Persistent pleural-parenchymal disease at the left mid and lower lung. A pneumothorax is not seen. Melvin Child MD Chest CT 02/23/18 0000 Signed Impressions: Service Date/Time: Friday, February 23, 2018 19:12 - CONCLUSION: Consolidation throughout the left lower lobe with a mild to moderate left pleural effusion. This is likely secondary to inflammatory/infectious process although other underlying processes cannot be excluded. There is cavitary change in the left lung base. Melvin Child MD Physical Exam CONSTITUTIONAL/GENERAL: This is an adequately nourished patient, in no apparent distress. TUBES/LINES/DRAINS: SKIN: No jaundice, rashes, or lesions. Ecchymoses on upper extremities. No wounds seen anteriorly. Skin temperature appropriate. Not diaphoretic. CARDIOVASCULAR: Regular rate and rhythm without murmurs, gallops, or rubs. No JVD. Peripheral pulses symmetric. RESPIRATORY/CHEST: Symmetric, unlabored respirations. L sided rhonchi to auscultation. Breath sounds equal bilaterally. No wheezes, rales GASTROINTESTINAL: Abdomen soft, minimally tender RLQ to palpation, nondistended. No hepato-splenomegaly, or palpable masses. No guarding. Bowel sounds present. GENITOURINARY: Without palpable bladder distension. MUSCULOSKELETAL: Extremities without clubbing, cyanosis, or edema. No joint tenderness or effusion noted. No calf tenderness. No mottling or clubbing. LYMPHATICS: No palpable cervical or supraclavicular adenopathy. NEUROLOGICAL: Awake and alert. Motor and sensory grossly within normal limits. Follows commands. Clear speech. Moves all extremities. PSYCHIATRIC: No obvious anxiety/depression. no apparent hallucinations or other psychotic thought process. Assessment & Plan Remarks Cavitary PNA Growing yeast in sputum - probably just colonisation 2/2 abx use doubt clin significance Empyema L pleural space Increased TB risk (incarcerated), but negative no prior TB h/o Worsening leukocytosis - sterroids may contribute, but still a pretty high leukocytsosis diarrhea, RLQ good and unexplained leukocytosis HIV negative cont zosyn, vanco awaiting IR procedure fu quantiferron chk fungal sputum dw Dillan Deleon and Coy[place] Britney Romero MD Mar 01, 2018 13:11
--- NOTE | 2018-03-01 14:06 | MB ---
cc: Hillary Tamayo MD DATE: 03/01/2018 DATE OF : 1965 HISTORY OF PRESENT ILLNESS: A 52-year-old male who presented to the emergency room on 02/23/2018. The patient has been incarcerated at [facility] since 1986, is here with 2 guards at his bedside, with 2-3 week history of productive cough, night sweats for about a month, very small hemoptysis. His fever was up to 102.8. He denies any weight loss. He has had some weight gain. His CT chest revealed consolidation throughout the left lower lobe with mild to moderate left effusion, likely secondary to inflammatory/infectious process. He also underwent abdomen and pelvis CT which showed multiloculated air/fluid collection, left hemithorax, concern for left empyema. We were consulted regarding this left empyema. However, the patient is undergoing thoracentesis today and await the evaluation of his fluid studies. In the meantime, he has been hep A, B, C negative, negative HIV. His mycobacterial tuberculosis, PCR is not detected. There is QuantiFERON TB Gold is pending. He did have some yeast in his sputum on the . Blood cultures have been negative to date. Negative flu A and B. No acid-fast stain. The mycobacterial culture is still pending. PAST MEDICAL HISTORY: 1. 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 He has had no other residual dysfunction. 2. Liver dysfunction secondary to statin use in 1997. 3. States he had an VA in 1986, but he refused cardiac catheterization at that time and/or further workup. He says he had a last chest discomfort about a year ago. PAST SURGICAL HISTORY: Left knee surgery in 1997, left ankle surgery in 1997, right ganglion cyst removal from his right radial wrist. ALLERGIES: LIPITOR. CURRENT MEDICATIONS: Simvastatin. FAMILY HISTORY: Father had end-stage renal disease on dialysis. Mother from cancer, unknown etiology. SOCIAL HISTORY: The patient is single. No children. Smoked since the , quit approximately 8 months ago. No alcohol. No illicit drugs. REVIEW OF SYSTEMS: As above in HPI. Otherwise 12 systems unremarkable. PHYSICAL EXAMINATION: VITAL SIGNS: Blood pressure 102/70, heart rate of 92, temperature T-max 100.7, O2 saturation 98 on room air. GENERAL: Awake, alert, in no acute distress. HEENT: Head is normocephalic, atraumatic. Pupils equal and reactive. Oral mucosa pink, moist. NECK: Supple. No JVD. HEART SOUNDS: S1, S2. Regular rate and rhythm. No audible rubs, murmurs, or gallops. LUNGS: Diminished left lower base, otherwise clear to auscultation. ABDOMEN: Soft, nontender. No masses or organomegaly. EXTREMITIES: No cyanosis, clubbing, or edema. LABORATORY DATA: Hemoglobin 9.7, hematocrit of 29, white cell count of 37, platelet count 528. Sodium 135, potassium 3.5, BUN of 10, creatinine 0.92. INR 1.1 Clostridium difficile specimen is negative. Serology as above. MICROBIOLOGY: As above. RADIOLOGICAL EXAMS: As above. IMPRESSION AND RECOMMENDATIONS: This is a 52-year-old male with cavitary pneumonia, increased risk for TB secondary to being incarcerated. No prior history of TB. He is currently being treated with antibiotics and he is currently undergoing thoracentesis today and we will send fluid for fluid studies. If no improvement, then we will reevaluate for potential left VATS procedure, possible decortication. Dictated by FREDIS Sánchez MD WAYNE Salgado/EVELYN , 01:38 PM , 02:04 PM
[2018-03-01 14:23] LABS: MITOGEN MINUS NIL RESULT -0.01 IU/mL; NIL RESULT 0.03 IU/mL; QUANTIFERON TB GOLD + RESULT Indeterminate (Negative); TB ANTIGEN MINUS NIL -0.01 IU/mL
[2018-03-01] MEDS ORDERED: MIDAZOLAM HCL 2 MG/2 ML VIAL ONE (14:41)
--- NOTE | 2018-03-01 15:16 | PD.RAD ---
Post CT Procedure Prog Note Pre Procedure Diagnosis: (1) Pleural effusion, left (2) Pneumonia (3) Sepsis Post Procedure Diagnosis: (1) Sepsis (2) Pneumonia (3) Pleural effusion, left Procedure Date: Mar 01, 2018 Supervising Radiologist: Delroy Deleon Anesthesia: Local, Analgesia, Conscious Sedation Plan of Activity Patient to Unit: ROPU Patient Condition: Good See PACS Report for procedural detail/treatment Drainage Procedure Procedure 1 Imaging Guidance: CT Side: Left Procedure Type: Chest Tube Tunneled Procedure: Placement Yoruba: 10 Drainage: Pleurovac (40 cmh2o) Fluid Removal (CCs): 700 Fluid Description: Clear, Yellow Delroy Deleon MD Mar 01, 2018 15:16
--- NOTE | 2018-03-01 15:30 | RADRPT ---
EXAM DATE/TIME: 03/01/2018 14:31 INDICATIONS : Left pleural effusions. SEDATION TIME: 15 minutes MEDICATION(S): 1.) 2 mg midazolam (Versed) IV 2.) 175 mcg fentanyl (Sublimaze) IV DEVICE(S): 1.) 10 Fr [place] FLUID: Total volume of 700 cc of clear, yellow fluid was removed. Fluid was sent for laboratory ordered studies. MEDICAL HISTORY : Cardiovascular disease. Hypertension. SURGICAL HISTORY : None. ENCOUNTER: Initial ACUITY: 1 day PAIN SCORE: 5/10 LOCATION: chest PROCEDURE: 1. CT guided left thoracentesis. 2. Conscious sedation with continuous EKG and oximetry monitoring. 3. EKG and oximetry remained stable throughout the procedure. The site was prepped in sterile fashion. Full sterile technique was used, including cap, mask, steri le gloves and gown and a large sterile sheet. Hand hygiene and 2% chlorhexidine and/or betadine/alco hol prep was utilized per protocol for cutaneous antisepsis. The skin and subcutaneous tissues were infiltrated with local anesthetic solution. Using automated exposure control and adjustment of the mA and/or kV according to patient size, radiation dose was kept as low as reasonably achievable to obta in optimal diagnostic quality images. DICOM format image data is available electronically for review and comparison. With the patient supine on the CT table, sharepoint admin images were obtained through the chest demonstrating t he loculated left pleural effusion. Dermatotomy was made and the prescribed catheter was advanced in to the pleural fluid. The pleural fluid as above was removed from the hemithorax. Post procedural s can show reduction in the amount of fluid with no evidence of pneumothorax. 20 cc of fluid was aspira kiet and sent to laboratory for analysis. The patient tolerated the procedure well and there were no complications. EKG and oximetry remained s table throughout the procedure. The patient was sent to recovery in stable condition. CONCLUSION: Uncomplicated CT-guided thoracentesis and chest tube placement as above. Delroy Deleon MD on March 01, 2018 at 15:26 Board Certified Radiologist. This report was verified electronically.
--- NOTE | 2018-03-01 16:27 | RADRPT ---
EXAM DATE/TIME: 03/01/2018 15:45 [facility] COMPARISON: CHEST SINGLE AP, February 24, 2018, 18:59. CT ABDOMEN & PELVIS W CONTRAST, February 27, 2018, 14:19. INDICATIONS : Post chest tube placement. MEDICAL HISTORY : Cardiovascular disease. Stroke. Hypertension. SURGICAL HISTORY : None. ENCOUNTER: Initial ACUITY: 1 day PAIN SCORE: 1/10 LOCATION: Left chest FINDINGS: Left atrial chest drainage catheter is projected over the lower left chest. No evidence of pneumotho rax. The loculated fluid collection in the lower left chest and consolidation left lower lung causin g loss of delineation of the left hemidiaphragm is similar appearance to prior. The right lung is cl ear. CONCLUSION: Pigtail chest catheter projects over the lower chest. Vadim Baird MD on March 01, 2018 at 16:23 Board Certified Radiologist. This report was verified electronically.
[2018-03-01] MEDS: PRAVASTATIN SOD 80 MG TAB PO SCH (19:51)
[2018-03-01] MEDS: VANCOMYCIN INJ 1,800 MG in SODIUM CHLORID 0.9% 500 ML INJ 500 ML IV SCH (22:18)
[2018-03-02] VITALS (12 sets, daily range): BP systolic 115–137; BP diastolic 64–74; PULSE 82–105; RESP 18–20; TEMP 99.9–101.7; O2SAT 92–95
[2018-03-02] MEDS: ACETAMINOPHEN 325 MG TAB PO PRN ×3 (01:25→23:33)
[2018-03-02] MEDS: PIPERACIL-TAZO 4.5 GM PREMIX 100 ML IV SCH ×4 (01:25→17:25)
[2018-03-02] MEDS: RESP: ALBUTEROL 2.5 MG/IPRATROPIUM 0.5 MG NEB (SCH) NEB ×3 (05:06→21:05)
[2018-03-02 05:23] LABS: AUTOMATED NEUTROPHIL # 18.2 TH/MM3 (1.8-7.7); BASOPHIL % 0.2 % (0.0-2.0); HEMATOCRIT 28.7 % (39.0-51.0); HEMOGLOBIN 9.6 GM/DL (13.0-17.0); LYMPH % 8.5 % (9.0-44.0); LYMPHOCYTE # 1.8 TH/MM3 (1.0-4.8); MEAN CELL VOLUME 91.1 FL (80.0-100.0); MEAN CORPUSCULAR HEMOGLOBIN 30.6 PG (27.0-34.0); MEAN CORPUSCULAR HGB CONC 33.6 % (32.0-36.0); MEAN PLATELET VOLUME 7.5 FL (7.0-11.0); MONO % 6.5 % (0.0-8.0); MONOCYTE # 1.4 TH/MM3 (0-0.9); NEUT % 84.8 % (16.0-70.0); PLATELET COUNT 543 TH/MM3 (150-450); RED BLOOD COUNT 3.14 MIL/MM3 (4.50-5.90); RED CELL DISTRIBUTION WIDTH 14.7 % (11.6-17.2); WHITE BLOOD COUNT 21.5 TH/MM3 (4.0-11.0)
[2018-03-02 05:43] LABS: BICARBONATE 27.4 MEQ/L (21.0-32.0); CALCIUM 8.1 MG/DL (8.5-10.1); CREATININE 1.05 MG/DL (0.60-1.30); MAGNESIUM 2.3 MG/DL (1.5-2.5)
[2018-03-02] MEDS: HEPARIN SODIUM - SQ 10,000 UNITS/ML VIAL SQ SCH ×3 (06:24→21:37)
[2018-03-02] MEDS ORDERED: ACETAMINOPHEN/HYDROcodone 325 MG/5 MG TAB PO PRN (09:15)
[2018-03-02] MEDS: FERROUS SULFATE 325 MG (65 MG ELEMENTAL IRON) TAB PO SCH ×2 (09:17→21:37)
[2018-03-02] MEDS: LACTOBACILLUS ACIDOPHILUS TAB PO SCH ×3 (09:17→17:24)
[2018-03-02] MEDS: VANCOMYCIN INJ 1,800 MG in SODIUM CHLORID 0.9% 500 ML INJ 500 ML IV SCH ×2 (09:20→21:37)
[2018-03-02] MEDS: SODIUM CHLORIDE 0.9% FLUSH 10 ML FLUSH IV FLUSH SCH ×2 (09:25→21:38)
[2018-03-02] MEDS: ACETAMINOPHEN/HYDROcodone 325 MG/7.5 MG TAB PO PRN ×3 (10:19→23:33)
--- NOTE | 2018-03-02 10:54 | HHI.PR ---
Subjective Remarks Follow-up pneumonia and left pleural effusion. Complains of left-sided chest pain secondary to chest tube. Denies shortness of breath. No BM for 3 days. Discussed with nursing Objective Vitals Vital Signs Date Time Temp Pulse Resp B/P (MAP) Pulse Ox O2 Delivery O2 Flow Rate FiO2 03/02/18 09:54 92 03/02/18 08:00 90 03/02/18 08:00 101.7 92 20 137/65 (89) 92 03/02/18 07:00 Room Air 03/02/18 04:00 100.2 88 18 124/68 (86) 93 03/02/18 03:52 105 03/02/18 02:25 18 03/02/18 00:25 87 03/02/18 00:00 99.9 93 18 115/64 (81) 95 03/01/18 21:55 93 03/01/18 20:00 Room Air 03/01/18 20:00 100.7 93 18 109/59 (76) 94 03/01/18 19:59 88 03/01/18 17:00 98.5 76 20 150/93 (112) 95 03/01/18 16:05 85 18 128/74 (92) 97 03/01/18 15:35 85 20 135/68 (90) 97 03/01/18 15:20 99.0 80 20 140/87 (104) 97 03/01/18 12:00 99.4 85 20 146/78 (100) 96 03/01/18 12:00 78 I/O 03/01/18 03/01/18 03/01/18 03/02/18 03/02/18 03/02/18 07:00 15:00 23:00 07:00 15:00 23:00 Intake Total 855 ml 240 ml Output Total 2500 ml 1800 ml 1400 ml 550 ml Balance -1645 ml -1800 ml -1160 ml -550 ml Intake Oral 240 ml 240 ml IV Total 615 ml Output Urine Total 2500 ml 1800 ml 700 ml 450 ml Chest Tube Drainage Total 700 ml 100 ml # Bowel Movements 0 0 0 Result Diagram: 03/02/18 0400 03/02/18 0400 Imaging Last Impressions Chest X-Ray 03/01/18 1600 Signed Impressions: Service Date/Time: Thursday, March 01, 2018 15:45 - CONCLUSION: Pigtail chest catheter projects over the lower chest. Vadim Baird MD Thoracentesis 03/01/18 0000 Signed Impressions: Service Date/Time: Thursday, March 01, 2018 14:31 - CONCLUSION: Uncomplicated CT-guided thoracentesis and chest tube placement as above. Delroy Deleon MD Abdomen/Pelvis CT 02/26/18 0000 Signed Impressions: Service Date/Time: Tuesday, February 27, 2018 14:19 - CONCLUSION: 1. Multiloculated air and fluid collection in the left hemithorax similar to recent chest CT concerning for a left sided empyema with adjacent lung consolidation and atelectasis. 2. Mild anasarca. Trace free fluid. No obstruction or free air. Balaji Stapleton MD Chest Ultrasound 02/25/18 0000 Signed Impressions: Service Date/Time: January 10:42 - CONCLUSION: Left pleural effusion is too small and loculated for ultrasound-guided thoracentesis. CT guided thoracentesis is recommended. Ramin Angulo MD Chest CT 02/23/18 0000 Signed Impressions: Service Date/Time: Friday, February 23, 2018 19:12 - CONCLUSION: Consolidation throughout the left lower lobe with a mild to moderate left pleural effusion. This is likely secondary to inflammatory/infectious process although other underlying processes cannot be excluded. There is cavitary change in the left lung base. Melvin Child MD Objective Remarks Well-developed and well-nourished in no distress AAOx3, nonfocal Warm dry skin with no lesions S1-S2 present with regular rate and rhythm, no murmur rubs or gallops. Bilateral lung with decreased breath sounds and dullness to percussion of left hemithorax. CT in place Abdomen is soft, nontender nondistended No edema in lower extremities. No cyanosis Procedures Chest tube drainage left pleural effusion A/P Problem List: (1) Sepsis ICD Code: A41.9 - Sepsis, unspecified organism Status: Acute (2) Pneumonia ICD Code: J18.9 - Pneumonia, unspecified organism Status: Acute (3) Reactive airway disease ICD Code: J45.909 - Unspecified asthma, uncomplicated (4) Pleural effusion, left ICD Code: J90 - Pleural effusion, not elsewhere classified Assessment and Plan Mr. 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 Chest x-ray showed left base consolidation consistent with pneumonia. The patient was admitted to the hospitalist service for medical treatment. 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 Parapneumonic effusion Chest x-ray and CT of the chest reviewed by me shows left lower lung consolidation and a mild to moderate left pleural effusion. Stable continue IV vancomycin and continue IV Zosyn and follow-up sputum AFB and fungal cultures. Repeat sputum and blood cultures. Fungal smear with rare budding yeast cell, AFB stain negative, MTB PCR negative and sputum culture with normal maggie. Nebulizations and oxygen as needed. S/p steroids. CTA of the abdomen pelvis with loculated empyema consulted CTS. status post CT guided chest tube drainage with 800 ml drained overnight f/u studies. Incentive spirometry Atypical chest pain troponin negative 3. Chest pain resolved likely secondary to COPD exacerbation and pneumonia. Diarrhea likely secondary to antibiotics. C. difficile negative. Resolved. Lactinex. Resolved discontinued normal saline. Continue to monitor BMP. Acute kidney injury Suspect prerenal azotemia from dehydration due to sepsis secondary to pneumonia and COPD exacerbation. Resolving discontinue IV fluids and continue to monitor. Complaining of difficulty voiding check urinalysis Mild transaminitis in patient with history of liver failure This is resolved with negative hepatitis panel. Likely secondary to sepsis Normocytic anemia Normocytic anemia. Continue to monitor CBC. Transfuse to keep hemoglobin at least 8. Guaiac stools (negative 1) DVT propylaxis - Heparin 5000 units subcu every 8 hours Discharge Planning Patient with cavitary pneumonia, COPD exacerbation, left pleural effusion s/p CT drainage on broad-spectrum IV antibiotics, ID consulted. Not ready for discharge Problem Qualifiers (1) Sepsis: Qualified Codes: A41.9 - Sepsis, unspecified organism (2) Pneumonia: Qualified Codes: J18.1 - Lobar pneumonia, unspecified organism Johnny Astorga MD Mar 02, 2018 10:54
[2018-03-02] MEDS ORDERED: SENNOSIDES 8.6 MG TAB PO PRN (11:00)
[2018-03-02] MEDS ORDERED: MAGNESIUM HYDROXIDE SUSP 30 ML CUP PO PRN (11:00)
[2018-03-02] MEDS ORDERED: LACTULOSE SYRUP 20 GM/30 ML CUP PO PRN (11:00)
[2018-03-02] MEDS ORDERED: BISACODYL 10 MG SUPP RECTAL PRN (11:00)
[2018-03-02] MEDS: DOCUSATE SODIUM 50 MG/SENNA 8.6 MG TAB PO SCH ×2 (11:42→21:37)
--- NOTE | 2018-03-02 13:48 | PD.CAR.PN ---
CVT Progress Note Subjective/Hospital Course: s/p left thoracentesis and drain placement. Improved leukocytosis Objective: Vital Signs Date Time Temp Pulse Resp B/P (MAP) Pulse Ox O2 Delivery O2 Flow Rate FiO2 03/02/18 12:00 99.9 82 20 130/74 (92) 94 03/02/18 09:54 92 03/02/18 08:00 90 03/02/18 08:00 101.7 92 20 137/65 (89) 92 03/02/18 07:00 Room Air 03/02/18 04:00 100.2 88 18 124/68 (86) 93 03/02/18 03:52 105 03/02/18 02:25 18 03/02/18 00:25 87 03/02/18 00:00 99.9 93 18 115/64 (81) 95 03/01/18 21:55 93 03/01/18 20:00 Room Air 03/01/18 20:00 100.7 93 18 109/59 (76) 94 03/01/18 19:59 88 03/01/18 17:00 98.5 76 20 150/93 (112) 95 03/01/18 16:05 85 18 128/74 (92) 97 03/01/18 15:35 85 20 135/68 (90) 97 03/01/18 15:20 99.0 80 20 140/87 (104) 97 Labs: Laboratory Tests Test 03/02/18 04:00 White Blood Count 21.5 TH/MM3 (4.0-11.0) Red Blood Count 3.14 MIL/MM3 (4.50-5.90) Hemoglobin 9.6 GM/DL (13.0-17.0) Hematocrit 28.7 % (39.0-51.0) Mean Corpuscular Volume 91.1 FL (80.0-100.0) Mean Corpuscular Hemoglobin 30.6 PG (27.0-34.0) Mean Corpuscular Hemoglobin Concent 33.6 % (32.0-36.0) Red Cell Distribution Width 14.7 % (11.6-17.2) Platelet Count 543 TH/MM3 (150-450) Mean Platelet Volume 7.5 FL (7.0-11.0) Neutrophils (%) (Auto) 84.8 % (16.0-70.0) Lymphocytes (%) (Auto) 8.5 % (9.0-44.0) Monocytes (%) (Auto) 6.5 % (0.0-8.0) Eosinophils (%) (Auto) 0.0 % (0.0-4.0) Basophils (%) (Auto) 0.2 % (0.0-2.0) Neutrophils # (Auto) 18.2 TH/MM3 (1.8-7.7) Lymphocytes # (Auto) 1.8 TH/MM3 (1.0-4.8) Monocytes # (Auto) 1.4 TH/MM3 (0-0.9) Eosinophils # (Auto) 0.0 TH/MM3 (0-0.4) Basophils # (Auto) 0.0 TH/MM3 (0-0.2) CBC Comment DIFF FINAL Differential Comment Blood Urea Nitrogen 12 MG/DL (7-18) Creatinine 1.05 MG/DL (0.60-1.30) Random Glucose 96 MG/DL (74-106) Calcium Level 8.1 MG/DL (8.5-10.1) Magnesium Level 2.3 MG/DL (1.5-2.5) Sodium Level 138 MEQ/L (136-145) Potassium Level 3.9 MEQ/L (3.5-5.1) Chloride Level 104 MEQ/L (98-107) Carbon Dioxide Level 27.4 MEQ/L (21.0-32.0) Anion Gap 7 MEQ/L (5-15) Estimat Glomerular Filtration Rate 90 ML/MIN (>89) Result Diagram: 03/02/18 0400 03/02/18 0400 Imaging: Last 24 hours Impressions Chest X-Ray 03/01/18 1600 Signed Impressions: Service Date/Time: Thursday, March 01, 2018 15:45 - CONCLUSION: Pigtail chest catheter projects over the lower chest. Vadim Baird MD CT: 800ml since drain placement Plan: Left effusion appears to be adequately drained on CXR. He may benefit from another non-contrast chest CT to assure adequate drainage of this effusion. I would not plan on surgical intervention unless he has a fairly significant loculated effusion.remaining. Cultures of the fluid are negative at this time. Hillary Tamayo MD Mar 02, 2018 13:48
[2018-03-02 17:11] LABS: BILIRUBIN, URINE NEG (NEG); BLOOD, URINE NEG (NEG); GLUCOSE,URINE NEG (NEG); KETONE, URINE NEG (NEG); NITRITE,URINE NEG (NEG); PH, URINE 6.5 (5.0-8.5); URINE COLOR YELLOW (YELLW/STRAW); URINE LEUKOCYTE ESTERASE NEG (NEG)
[2018-03-02] MEDS: PRAVASTATIN SOD 80 MG TAB PO SCH (21:37)
[2018-03-03] VITALS (7 sets, daily range): BP systolic 127–150; BP diastolic 63–77; PULSE 77–100; RESP 14–20; TEMP 98.2–101.7; O2SAT 92–96
[2018-03-03] MEDS: PIPERACIL-TAZO 4.5 GM PREMIX 100 ML IV SCH ×4 (00:10→17:34)
[2018-03-03] MEDS: RESP: ALBUTEROL 2.5 MG/IPRATROPIUM 0.5 MG NEB (SCH) NEB (03:06)
[2018-03-03] MEDS: ACETAMINOPHEN/HYDROcodone 325 MG/7.5 MG TAB PO PRN ×3 (03:39→21:03)
[2018-03-03] MEDS: HEPARIN SODIUM - SQ 10,000 UNITS/ML VIAL SQ SCH ×3 (05:52→21:04)
[2018-03-03 06:51] LABS: BASOPHIL # 0.1 TH/MM3 (0-0.2); BASOPHIL % 0.3 % (0.0-2.0); HEMOGLOBIN 9.2 GM/DL (13.0-17.0); LYMPH % 6.2 % (9.0-44.0); LYMPHOCYTE # 1.5 TH/MM3 (1.0-4.8); MEAN CELL VOLUME 90.7 FL (80.0-100.0); MEAN CORPUSCULAR HEMOGLOBIN 31.1 PG (27.0-34.0); MEAN CORPUSCULAR HGB CONC 34.2 % (32.0-36.0); MEAN PLATELET VOLUME 7.2 FL (7.0-11.0); MONO % 7.6 % (0.0-8.0); MONOCYTE # 1.8 TH/MM3 (0-0.9); NEUT % 85.9 % (16.0-70.0); PLATELET COUNT 572 TH/MM3 (150-450); RED BLOOD COUNT 2.97 MIL/MM3 (4.50-5.90); RED CELL DISTRIBUTION WIDTH 14.4 % (11.6-17.2); WHITE BLOOD COUNT 24.4 TH/MM3 (4.0-11.0)
[2018-03-03 07:05] LABS: BICARBONATE 27.7 MEQ/L (21.0-32.0); MAGNESIUM 2.3 MG/DL (1.5-2.5)
[2018-03-03] MEDS: DOCUSATE SODIUM 50 MG/SENNA 8.6 MG TAB PO SCH ×2 (08:38→21:00)
[2018-03-03] MEDS: LACTOBACILLUS ACIDOPHILUS TAB PO SCH ×3 (08:38→17:34)
[2018-03-03] MEDS: FERROUS SULFATE 325 MG (65 MG ELEMENTAL IRON) TAB PO SCH ×2 (08:39→21:02)
[2018-03-03] MEDS: SODIUM CHLORIDE 0.9% FLUSH 10 ML FLUSH IV FLUSH SCH ×2 (08:39→21:01)
[2018-03-03] MEDS ORDERED: PHARMACY ORDERED LAB ONE (08:45)
[2018-03-03 09:07] LABS: GLUCOSE,PLEURAL FLUID LESS THAN 1 MG/DL
[2018-03-03 09:21] LABS: TOTAL PROTEIN,PLEURAL FLUID 5.2 GM/DL
[2018-03-03] MEDS: ACETAMINOPHEN 325 MG TAB PO PRN (10:12)
[2018-03-03] MEDS: VANCOMYCIN INJ 1,800 MG in SODIUM CHLORID 0.9% 500 ML INJ 500 ML IV SCH (10:12)
--- NOTE | 2018-03-03 11:14 | RADRPT ---
EXAM DATE/TIME: 03/03/2018 10:20 [facility] COMPARISON: CT THORAX W CONTRAST, February 23, 2018, 19:12. CT GUIDED THORACENTESIS LEFT, March 01, 2018, 14:31. C HEST EXPIRATION ONLY, March 01, 2018, 15:45. CHEST SINGLE AP, February 24, 2018, 18:59. INDICATIONS : F/u left effusion. MEDICAL HISTORY : Cardiovascular disease. Stroke. Hypertension. SURGICAL HISTORY : None. ENCOUNTER: Initial ACUITY: 1 week PAIN SCORE: 0/10 LOCATION: Bilateral chest FINDINGS: Left pigtail chest catheter remains projected in the lower left chest. There is a changed appearance to the lateral left mid chest with increased size to a global air-containing structure laterally inv olving the mid and lower chest, now measuring 14 cm in superior/inferior extent (previously measured 4.5 cm). This is located lateral to a denser consolidation in the retrocardiac lung. There is persi stent loss of delineation of the left hemidiaphragm old stopped no evidence of pneumothorax at the le ft apex. Right lung is clear. No evidence of mediastinal shift. CONCLUSION: Increasing localized oval air-containing structure in the lateral left chest. This probably represen ts air filling the loculated pleural effusion cavity, but there has been a significant increase in si ze. Chest drainage catheter remains projected in the lower left chest and dense consolidation in the medial left lower lobe is stable. Recommend performing CT to further characterize the enlarging air -containing cavity. Vadim Baird MD on March 03, 2018 at 11:07 Board Certified Radiologist. This report was verified electronically.
--- NOTE | 2018-03-03 12:32 | HHI.IDPN ---
Subjective Subjective Remarks + low grade fever up 99.9 WBC went up down to 24 K sp CY guided thoracocenthesis breathing better Antibiotics zosyn vanco Allergies: Coded Allergies: atorvastatin (Verified Adverse Reaction, Severe, Liver failure, 02/23/18) Objective . Vital Signs Date Time Temp Pulse Resp B/P (MAP) Pulse Ox O2 Delivery O2 Flow Rate FiO2 03/03/18 08:45 Room Air 03/03/18 08:00 99.9 85 14 140/74 (96) 92 03/03/18 08:00 83 03/03/18 04:00 98.6 86 18 127/73 (91) 96 03/03/18 03:56 87 03/03/18 00:00 Room Air 03/03/18 00:00 101.7 100 20 139/63 (88) 93 03/02/18 23:49 91 03/02/18 21:08 94 Nasal Cannula 2.00 03/02/18 20:00 Room Air 03/02/18 20:00 101.4 92 18 124/71 (88) 92 03/02/18 19:48 87 03/02/18 16:00 100.4 87 20 131/70 (90) 93 . Laboratory Tests Test 03/02/18 04:00 03/03/18 06:05 White Blood Count 21.5 TH/MM3 24.4 TH/MM3 Red Blood Count 3.14 MIL/MM3 2.97 MIL/MM3 Hemoglobin 9.6 GM/DL 9.2 GM/DL Hematocrit 28.7 % 27.0 % Mean Corpuscular Volume 91.1 FL 90.7 FL Mean Corpuscular Hemoglobin 30.6 PG 31.1 PG Mean Corpuscular Hemoglobin Concent 33.6 % 34.2 % Red Cell Distribution Width 14.7 % 14.4 % Platelet Count 543 TH/MM3 572 TH/MM3 Mean Platelet Volume 7.5 FL 7.2 FL Neutrophils (%) (Auto) 84.8 % 85.9 % Lymphocytes (%) (Auto) 8.5 % 6.2 % Monocytes (%) (Auto) 6.5 % 7.6 % Eosinophils (%) (Auto) 0.0 % 0.0 % Basophils (%) (Auto) 0.2 % 0.3 % Neutrophils # (Auto) 18.2 TH/MM3 21.0 TH/MM3 Lymphocytes # (Auto) 1.8 TH/MM3 1.5 TH/MM3 Monocytes # (Auto) 1.4 TH/MM3 1.8 TH/MM3 Eosinophils # (Auto) 0.0 TH/MM3 0.0 TH/MM3 Basophils # (Auto) 0.0 TH/MM3 0.1 TH/MM3 CBC Comment DIFF FINAL DIFF FINAL Differential Comment Laboratory Tests Test 03/02/18 04:00 03/03/18 06:05 Blood Urea Nitrogen 12 MG/DL 9 MG/DL Creatinine 1.05 MG/DL 1.00 MG/DL Random Glucose 96 MG/DL 109 MG/DL Calcium Level 8.1 MG/DL 8.0 MG/DL Magnesium Level 2.3 MG/DL 2.3 MG/DL Sodium Level 138 MEQ/L 134 MEQ/L Potassium Level 3.9 MEQ/L 3.9 MEQ/L Chloride Level 104 MEQ/L 101 MEQ/L Carbon Dioxide Level 27.4 MEQ/L 27.7 MEQ/L Anion Gap 7 MEQ/L 5 MEQ/L Estimat Glomerular Filtration Rate 90 ML/MIN 95 ML/MIN Microbiology Date/Time Source Procedure Growth Status 03/01/18 06:22 Blood Peripheral Aerobic Blood Culture - Preliminary NO GROWTH IN 2 DAYS Resulted 03/01/18 06:22 Blood Peripheral Anaerobic Blood Culture - Preliminary NO GROWTH IN 2 DAYS Resulted 02/28/18 17:40 Blood Peripheral Aerobic Blood Culture - Preliminary NO GROWTH IN 3 DAYS Resulted 02/28/18 17:40 Blood Peripheral Anaerobic Blood Culture - Preliminary NO GROWTH IN 3 DAYS Resulted 03/01/18 15:00 Fluid Pleural Fluid Fungal Smear - Final NO FUNGAL ELEMENTS SEEN. Resulted 03/01/18 15:00 Fluid Pleural Fluid Fungal Culture Pending Resulted 03/01/18 15:00 Fluid Pleural Fluid Acid Fast Stain Pending Received 03/01/18 15:00 Fluid Pleural Fluid Mycobacterial Culture Pending Received 03/01/18 15:00 Fluid Pleural Fluid Gram Stain - Final Resulted 03/01/18 15:00 Fluid Pleural Fluid Body Fluid Culture - Preliminary NO GROWTH IN 48 HOURS. Resulted 02/28/18 13:50 Sputum Expectorated Sputum Gram Stain - Final Complete 02/28/18 13:50 Sputum Expectorated Sputum Sputum Culture - Final HEAVY GROWTH NORMAL RESPIRATORY DAVID Complete Imaging Last Impressions Chest X-Ray 03/03/18 0000 Signed Impressions: Service Date/Time: Saturday, March 03, 2018 10:20 - CONCLUSION: Increasing localized oval air-containing structure in the lateral left chest. This probably represents air filling the loculated pleural effusion cavity, but there has been a significant increase in size. Chest drainage catheter remains projected in the lower left chest and dense consolidation in the medial left lower lobe is stable. Recommend performing CT to further characterize the enlarging air-containing cavity. Vadim Baird MD Thoracentesis 03/01/18 0000 Signed Impressions: Service Date/Time: Thursday, March 01, 2018 14:31 - CONCLUSION: Uncomplicated CT-guided thoracentesis and chest tube placement as above. Delroy Deleon MD Abdomen/Pelvis CT 02/26/18 0000 Signed Impressions: Service Date/Time: Tuesday, February 27, 2018 14:19 - CONCLUSION: 1. Multiloculated air and fluid collection in the left hemithorax similar to recent chest CT concerning for a left sided empyema with adjacent lung consolidation and atelectasis. 2. Mild anasarca. Trace free fluid. No obstruction or free air. Balaji Stapleton MD Chest Ultrasound 02/25/18 0000 Signed Impressions: Service Date/Time: January 10:42 - CONCLUSION: Left pleural effusion is too small and loculated for ultrasound-guided thoracentesis. CT guided thoracentesis is recommended. Ramin Angulo MD Chest CT 02/23/18 0000 Signed Impressions: Service Date/Time: Friday, February 23, 2018 19:12 - CONCLUSION: Consolidation throughout the left lower lobe with a mild to moderate left pleural effusion. This is likely secondary to inflammatory/infectious process although other underlying processes cannot be excluded. There is cavitary change in the left lung base. Melvin Child MD Physical Exam CONSTITUTIONAL/GENERAL: This is an adequately nourished patient, in no apparent distress. TUBES/LINES/DRAINS: SKIN: No jaundice, rashes, or lesions. Ecchymoses on upper extremities. No wounds seen anteriorly. Skin temperature appropriate. Not diaphoretic. CARDIOVASCULAR: Regular rate and rhythm without murmurs, gallops, or rubs. No JVD. Peripheral pulses symmetric. RESPIRATORY/CHEST: Symmetric, unlabored respirations. L sided rhonchi to auscultation. Breath sounds equal bilaterally. No wheezes, rales CT in place on the L with purulent drainage GASTROINTESTINAL: Abdomen soft, minimally tender RLQ to palpation, nondistended. No hepato-splenomegaly, or palpable masses. No guarding. Bowel sounds present. MUSCULOSKELETAL: Extremities without clubbing, cyanosis, or edema. No joint tenderness or effusion noted. No calf tenderness. No mottling or clubbing. LYMPHATICS: No palpable cervical or supraclavicular adenopathy. NEUROLOGICAL: Awake and alert. Motor and sensory grossly within normal limits. Follows commands. Clear speech. Moves all extremities. PSYCHIATRIC: No obvious anxiety/depression. no apparent hallucinations or other psychotic thought process. Assessment & Plan Remarks Cavitary PNA Growing yeast in sputum - probably just colonisation 2/2 abx use doubt clin significance Empyema L pleural space, clx negative prelim - likley 2/2 prior abx use Increased TB risk (incarcerated), but negative no prior TB h/o Worsening leukocytosis - sterroids may contribute, but still a pretty high leukocytsosis diarrhea, RLQ good and unexplained leukocytosis HIV negative Qunt is indeterminant leukocytsosis - worse today cont javi segovia anticipate transition to po abx @ d/c Birtney Romero MD Mar 03, 2018 12:32
--- NOTE | 2018-03-03 12:38 | PD.CAR.PN ---
CVT Progress Note Subjective/Hospital Course: s/p left thoracentesis and drain placement. no new fluid collection, no growth in cultures no surgery warranted at this time Objective: Vital Signs Date Time Temp Pulse Resp B/P (MAP) Pulse Ox O2 Delivery O2 Flow Rate FiO2 03/03/18 12:30 Room Air 03/03/18 12:00 98.2 86 15 127/74 (91) 93 03/03/18 08:45 Room Air 03/03/18 08:00 99.9 85 14 140/74 (96) 92 03/03/18 08:00 83 03/03/18 04:00 98.6 86 18 127/73 (91) 96 03/03/18 03:56 87 03/03/18 00:00 Room Air 03/03/18 00:00 101.7 100 20 139/63 (88) 93 03/02/18 23:49 91 03/02/18 21:08 94 Nasal Cannula 2.00 03/02/18 20:00 Room Air 03/02/18 20:00 101.4 92 18 124/71 (88) 92 03/02/18 19:48 87 03/02/18 16:00 100.4 87 20 131/70 (90) 93 Labs: Laboratory Tests Test 03/03/18 06:05 03/03/18 08:14 White Blood Count 24.4 TH/MM3 (4.0-11.0) Red Blood Count 2.97 MIL/MM3 (4.50-5.90) Hemoglobin 9.2 GM/DL (13.0-17.0) Hematocrit 27.0 % (39.0-51.0) Mean Corpuscular Volume 90.7 FL (80.0-100.0) Mean Corpuscular Hemoglobin 31.1 PG (27.0-34.0) Mean Corpuscular Hemoglobin Concent 34.2 % (32.0-36.0) Red Cell Distribution Width 14.4 % (11.6-17.2) Platelet Count 572 TH/MM3 (150-450) Mean Platelet Volume 7.2 FL (7.0-11.0) Neutrophils (%) (Auto) 85.9 % (16.0-70.0) Lymphocytes (%) (Auto) 6.2 % (9.0-44.0) Monocytes (%) (Auto) 7.6 % (0.0-8.0) Eosinophils (%) (Auto) 0.0 % (0.0-4.0) Basophils (%) (Auto) 0.3 % (0.0-2.0) Neutrophils # (Auto) 21.0 TH/MM3 (1.8-7.7) Lymphocytes # (Auto) 1.5 TH/MM3 (1.0-4.8) Monocytes # (Auto) 1.8 TH/MM3 (0-0.9) Eosinophils # (Auto) 0.0 TH/MM3 (0-0.4) Basophils # (Auto) 0.1 TH/MM3 (0-0.2) CBC Comment DIFF FINAL Differential Comment Blood Urea Nitrogen 9 MG/DL (7-18) Creatinine 1.00 MG/DL (0.60-1.30) Random Glucose 109 MG/DL (74-106) Calcium Level 8.0 MG/DL (8.5-10.1) Magnesium Level 2.3 MG/DL (1.5-2.5) Sodium Level 134 MEQ/L (136-145) Potassium Level 3.9 MEQ/L (3.5-5.1) Chloride Level 101 MEQ/L (98-107) Carbon Dioxide Level 27.7 MEQ/L (21.0-32.0) Anion Gap 5 MEQ/L (5-15) Estimat Glomerular Filtration Rate 95 ML/MIN (>89) Vancomycin Level Trough 12.5 MCG/ML (5.0-10.0) Result Diagram: 03/03/18 0605 03/03/18 0605 Ning Membreno Mar 03, 2018 12:38
--- NOTE | 2018-03-03 13:34 | HHI.PR ---
Subjective Remarks F/u pneumonia. Today he feels much better denies shortness of breath and chest pain. He had a large dark stool this morning discussed with nursing Objective Vitals Vital Signs Date Time Temp Pulse Resp B/P (MAP) Pulse Ox O2 Delivery O2 Flow Rate FiO2 03/03/18 12:30 Room Air 03/03/18 12:00 80 03/03/18 12:00 98.2 86 15 127/74 (91) 93 03/03/18 08:45 Room Air 03/03/18 08:00 99.9 85 14 140/74 (96) 92 03/03/18 08:00 83 03/03/18 04:00 98.6 86 18 127/73 (91) 96 03/03/18 03:56 87 03/03/18 00:00 Room Air 03/03/18 00:00 101.7 100 20 139/63 (88) 93 03/02/18 23:49 91 03/02/18 21:08 94 Nasal Cannula 2.00 03/02/18 20:00 Room Air 03/02/18 20:00 101.4 92 18 124/71 (88) 92 03/02/18 19:48 87 03/02/18 16:00 100.4 87 20 131/70 (90) 93 I/O 03/02/18 03/02/18 03/02/18 03/03/18 03/03/18 03/03/18 07:00 15:00 23:00 07:00 15:00 23:00 Intake Total 620 ml 618 ml Output Total 550 ml 650 ml Balance -550 ml 620 ml -32 ml Intake Oral 620 ml IV Total 618 ml Output Urine Total 450 ml 650 ml Chest Tube Drainage Total 100 ml # Voids 3 # Bowel Movements 0 1 Result Diagram: 03/03/18 0605 03/03/18 0605 Imaging Last Impressions Chest X-Ray 03/03/18 0000 Signed Impressions: Service Date/Time: Saturday, March 03, 2018 10:20 - CONCLUSION: Increasing localized oval air-containing structure in the lateral left chest. This probably represents air filling the loculated pleural effusion cavity, but there has been a significant increase in size. Chest drainage catheter remains projected in the lower left chest and dense consolidation in the medial left lower lobe is stable. Recommend performing CT to further characterize the enlarging air-containing cavity. Vadim Baird MD Thoracentesis 03/01/18 0000 Signed Impressions: Service Date/Time: Thursday, March 01, 2018 14:31 - CONCLUSION: Uncomplicated CT-guided thoracentesis and chest tube placement as above. Delroy Deleon MD Abdomen/Pelvis CT 02/26/18 0000 Signed Impressions: Service Date/Time: Tuesday, February 27, 2018 14:19 - CONCLUSION: 1. Multiloculated air and fluid collection in the left hemithorax similar to recent chest CT concerning for a left sided empyema with adjacent lung consolidation and atelectasis. 2. Mild anasarca. Trace free fluid. No obstruction or free air. Balaji Stapleton MD Chest Ultrasound 02/25/18 0000 Signed Impressions: Service Date/Time: January 10:42 - CONCLUSION: Left pleural effusion is too small and loculated for ultrasound-guided thoracentesis. CT guided thoracentesis is recommended. Ramin Angulo MD Chest CT 02/23/18 0000 Signed Impressions: Service Date/Time: Friday, February 23, 2018 19:12 - CONCLUSION: Consolidation throughout the left lower lobe with a mild to moderate left pleural effusion. This is likely secondary to inflammatory/infectious process although other underlying processes cannot be excluded. There is cavitary change in the left lung base. Melvin Child MD Objective Remarks Well-developed and well-nourished in no distress AAOx3, nonfocal Warm dry skin with no lesions S1-S2 present with regular rate and rhythm, no murmur rubs or gallops. Bilateral lung with decreased breath sounds and dullness to percussion of left hemithorax. CT in place Abdomen is soft, nontender nondistended No edema in lower extremities. No cyanosis Procedures Chest tube drainage left pleural effusion A/P Problem List: (1) Sepsis ICD Code: A41.9 - Sepsis, unspecified organism Status: Acute (2) Pneumonia ICD Code: J18.9 - Pneumonia, unspecified organism Status: Acute (3) Reactive airway disease ICD Code: J45.909 - Unspecified asthma, uncomplicated (4) Pleural effusion, left ICD Code: J90 - Pleural effusion, not elsewhere classified Assessment and Plan Mr. 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 Chest x-ray showed left base consolidation consistent with pneumonia. The patient was admitted to the hospitalist service for medical treatment. 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 Parapneumonic effusion Chest x-ray and CT of the chest reviewed by me shows left lower lung consolidation and a mild to moderate left pleural effusion. Still with fever and worsening leukocytosis continue IV vancomycin and IV Zosyn and follow-up sputum AFB and fungal cultures. Repeat sputum and blood cultures. Fungal smear with rare budding yeast cell, AFB stain negative, MTB PCR negative and sputum culture with normal maggie. Nebulizations and oxygen as needed. S/p steroids. CTA of the abdomen pelvis with loculated effusion ? empyema consulted CTS status post CT guided chest tube by IR drainage in the last 3 hours 100 ml drained in the last 3 hours f/u studies. Repeat chest x- ray with enlarging air-containing cavity recommended repeat chest CT. Incentive spirometry Atypical chest pain troponin negative 3. Chest pain resolved likely secondary to COPD exacerbation and pneumonia. Diarrhea likely secondary to antibiotics. C. difficile negative. Resolved. Lactinex. Resolved discontinued normal saline. Continue to monitor BMP. Acute kidney injury Suspect prerenal azotemia from dehydration due to sepsis secondary to pneumonia and COPD exacerbation. Resolving discontinue IV fluids and continue to monitor. Complaining of difficulty voiding check urinalysis Mild transaminitis in patient with history of liver failure This is resolved with negative hepatitis panel. Likely secondary to sepsis Normocytic anemia. Patient complaining of dark stool. Continue to monitor CBC. Transfuse to keep hemoglobin at least 8. Guaiac stools (negative 1) DVT propylaxis - Heparin 5000 units subcu every 8 hours Discharge Planning Patient with cavitary pneumonia, COPD exacerbation, left pleural effusion s/p CT drainage on broad-spectrum IV antibiotics, ID consulted. Not ready for discharge Problem Qualifiers (1) Sepsis: Qualified Codes: A41.9 - Sepsis, unspecified organism (2) Pneumonia: Qualified Codes: J18.1 - Lobar pneumonia, unspecified organism Johnny Astorga MD Mar 03, 2018 13:34
[2018-03-03] MEDS ORDERED: IOHEXOL 350 MG/ML 10 ML VIAL (for RAD DIAG) IVCONTRAST ONE (15:43)
--- NOTE | 2018-03-03 17:16 | RADRPT ---
EXAM DATE/TIME: 03/03/2018 15:31 [facility] COMPARISON: CT GUIDED THORACENTESIS LEFT, March 01, 2018, 14:31. INDICATIONS : Enlarging air cavity in left lung. Has drain tube in placed by CT IV CONTRAST: 98 cc Omnipaque 350 (iohexol) IV RADIATION DOSE: 13.48 CTDIvol (mGy) MEDICAL HISTORY : Cardiovascular disease. Hypertension. SURGICAL HISTORY : None. ENCOUNTER: Initial ACUITY: 1 day PAIN SCALE: 5/10 LOCATION: Left chest TECHNIQUE: Volumetric scanning of the chest was performed. Using automated exposure control and adjustment of t he mA and/or kV according to patient size, radiation dose was kept as low as reasonably achievable to obtain optimal diagnostic quality images. DICOM format image data is available electronically for review and comparison. Follow-up recommendations for detected pulmonary nodules are based at a minimum on nodule size and pa tient risk factors according to Fleischner Society Guidelines. FINDINGS: CT imaging through the thorax demonstrates a thick walled a hydropneumothorax involving the left lung base. There is a small bore chest tube in good position. There is only a small or moderate amount of fluid remaining. There is consolidation of the left lower lobe. Findings would be most consistent wi th empyema. The right lung is clear. The heart is normal in size. There is moderate atherosclerotic plaquing in the coronary arteries. The visualized bony structures are grossly intact. CONCLUSION: Hydropneumothorax at the left lung base with diffuse pleural thickening and consolidation in the left lower lobe. There is thick fluid with small air pockets in the fluid throughout the left lung base. Findings would be most consistent with empyema. The fluid at the left lung base has been drained hernandes timothy, the lung has not reinflated. Bhavin Aguilar MD on March 03, 2018 at 17:11 Board Certified Radiologist. This report was verified electronically.
[2018-03-03] MEDS: VANCOMYCIN INJ 2,250 MG in SODIUM CHLORID 0.9% 500 ML INJ 500 ML IV SCH (21:01)
[2018-03-03] MEDS: PRAVASTATIN SOD 80 MG TAB PO SCH (21:02)
[2018-03-04] VITALS (8 sets, daily range): BP systolic 119–133; BP diastolic 58–73; PULSE 75–107; RESP 16–20; TEMP 98.7–102.7; O2SAT 92–95
[2018-03-04] MEDS: ACETAMINOPHEN/HYDROcodone 325 MG/7.5 MG TAB PO PRN ×5 (01:01→22:16)
[2018-03-04] MEDS: PIPERACIL-TAZO 4.5 GM PREMIX 100 ML IV SCH ×5 (01:02→23:50)
[2018-03-04] MEDS: HEPARIN SODIUM - SQ 10,000 UNITS/ML VIAL SQ SCH ×3 (05:51→22:00)
[2018-03-04 08:22] LABS: AUTOMATED NEUTROPHIL # 10.6 TH/MM3 (1.8-7.7); BASOPHIL # 0.1 TH/MM3 (0-0.2); BASOPHIL % 0.5 % (0.0-2.0); HEMATOCRIT 26.7 % (39.0-51.0); MEAN CELL VOLUME 90.1 FL (80.0-100.0); MEAN CORPUSCULAR HEMOGLOBIN 30.5 PG (27.0-34.0); MEAN CORPUSCULAR HGB CONC 33.8 % (32.0-36.0); MEAN PLATELET VOLUME 7.4 FL (7.0-11.0); MONO % 9.8 % (0.0-8.0); MONOCYTE # 1.3 TH/MM3 (0-0.9); NEUT % 81.7 % (16.0-70.0); PLATELET COUNT 620 TH/MM3 (150-450); RED BLOOD COUNT 2.96 MIL/MM3 (4.50-5.90); RED CELL DISTRIBUTION WIDTH 14.6 % (11.6-17.2)
[2018-03-04] MEDS: DOCUSATE SODIUM 50 MG/SENNA 8.6 MG TAB PO SCH ×3 (08:33→20:07)
[2018-03-04] MEDS: FERROUS SULFATE 325 MG (65 MG ELEMENTAL IRON) TAB PO SCH ×2 (08:33→20:06)
[2018-03-04] MEDS: VANCOMYCIN INJ 2,250 MG in SODIUM CHLORID 0.9% 500 ML INJ 500 ML IV SCH ×2 (08:33→20:06)
[2018-03-04] MEDS: LACTOBACILLUS ACIDOPHILUS TAB PO SCH ×3 (08:33→17:25)
[2018-03-04] MEDS: SODIUM CHLORIDE 0.9% FLUSH 10 ML FLUSH IV FLUSH SCH ×2 (08:33→20:06)
[2018-03-04 08:40] LABS: BICARBONATE 27.7 MEQ/L (21.0-32.0); CREATININE 0.88 MG/DL (0.60-1.30)
[2018-03-04 15:22] LABS: AMYLASE BODY FLUID 40 U/L; AMYLASE BODY FLUID TYPE PLEURAL
--- NOTE | 2018-03-04 16:31 | HHI.PR ---
Subjective Remarks Patient denied fever or pain he is still on 2 L nasal cannula chest tube in place Objective Vitals Vital Signs Date Time Temp Pulse Resp B/P (MAP) Pulse Ox O2 Delivery O2 Flow Rate FiO2 03/04/18 16:00 82 03/04/18 14:27 Room Air 03/04/18 12:00 98.7 82 16 133/64 (87) 93 03/04/18 12:00 107 03/04/18 08:30 75 03/04/18 08:30 Room Air 03/04/18 08:00 98.9 76 16 124/65 (84) 94 03/04/18 04:00 76 03/04/18 04:00 98.9 79 18 119/58 (78) 92 03/04/18 00:19 21 03/04/18 00:00 77 03/04/18 00:00 99.2 81 20 132/73 (92) 93 03/04/18 00:00 Room Air 03/03/18 20:00 80 03/03/18 20:00 98.4 77 18 145/68 (93) 96 03/03/18 18:02 Room Air I/O 03/03/18 03/03/18 03/03/18 03/04/18 03/04/18 03/04/18 07:00 15:00 23:00 07:00 15:00 23:00 Intake Total 618 ml 560 ml Output Total 650 ml 2000 ml 930 ml Balance -32 ml -1440 ml -930 ml Intake Oral 560 ml IV Total 618 ml Output Urine Total 650 ml 2000 ml 800 ml Chest Tube Drainage Total 130 ml # Bowel Movements 1 Result Diagram: 03/04/18 0654 03/04/18 0654 Objective Remarks GENERAL: This is a well-nourished, well-developed patient, in no apparent distress. SKIN: No rashes, warm and dry HEAD: Atraumatic. Normocephalic. EYES: Pupils equal round and reactive. Extraocular motions intact. No scleral icterus. ENT: Nose without bleeding, or drainage, Airway patent. NECK: Trachea midline. Supple CARDIOVASCULAR: Regular rate and rhythm without murmurs, gallops, or rubs. Chest tube in place RESPIRATORY: Left chest crepitus GASTROINTESTINAL: Abdomen soft, non-tender, nondistended. Positive bowel sounds MUSCULOSKELETAL: Extremities without clubbing, cyanosis, or edema. Pedal pulses appreciated NEUROLOGICAL: Awake and alert. Moves all extremity. Normal speech.no focal neurological deficit Procedures Chest tube drainage left pleural effusion A/P Problem List: (1) Sepsis ICD Code: A41.9 - Sepsis, unspecified organism Status: Acute (2) Pneumonia ICD Code: J18.9 - Pneumonia, unspecified organism Status: Acute (3) Reactive airway disease ICD Code: J45.909 - Unspecified asthma, uncomplicated (4) Pleural effusion, left ICD Code: J90 - Pleural effusion, not elsewhere classified Assessment and Plan Mr. 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 Chest x-ray showed left base consolidation consistent with pneumonia. The patient was admitted to the hospitalist service for medical treatment. 03/04: WBC dropped to 13 K, continue current care, chest tube management, Repeat CBC BMP in a.m., monitor temperature, blood pressure Left lung base pneumonia Sepsis Cavitary lung lesion in a correctional facility inmate Reactive airway disease. Parapneumonic effusion Chest x-ray and CT of the chest reviewed by me shows left lower lung consolidation and a mild to moderate left pleural effusion. Still with fever and worsening leukocytosis continue IV vancomycin and IV Zosyn and follow-up sputum AFB and fungal cultures. Repeat sputum and blood cultures. Fungal smear with rare budding yeast cell, AFB stain negative, MTB PCR negative and sputum culture with normal maggie. Nebulizations and oxygen as needed. S/p steroids. CTA of the abdomen pelvis with loculated effusion ? empyema consulted CTS status post CT guided chest tube by IR drainage in the last 3 hours 100 ml drained in the last 3 hours f/u studies. Repeat chest x- ray with enlarging air-containing cavity recommended repeat chest CT. Incentive spirometry Atypical chest pain troponin negative 3. Chest pain resolved likely secondary to COPD exacerbation and pneumonia. Diarrhea likely secondary to antibiotics. C. difficile negative. Resolved. Lactinex. Resolved discontinued normal saline. Continue to monitor BMP. Acute kidney injury Suspect prerenal azotemia from dehydration due to sepsis secondary to pneumonia and COPD exacerbation. Resolving discontinue IV fluids and continue to monitor. Complaining of difficulty voiding check urinalysis Mild transaminitis in patient with history of liver failure This is resolved with negative hepatitis panel. Likely secondary to sepsis Normocytic anemia. Patient complaining of dark stool. Continue to monitor CBC. Transfuse to keep hemoglobin at least 8. Guaiac stools (negative 1) DVT propylaxis - Heparin 5000 units subcu every 8 hours Discharge Planning Patient with cavitary pneumonia, COPD exacerbation, left pleural effusion s/p CT drainage on broad-spectrum IV antibiotics, ID consulted. Not ready for discharge Problem Qualifiers (1) Sepsis: Qualified Codes: A41.9 - Sepsis, unspecified organism (2) Pneumonia: Qualified Codes: J18.1 - Lobar pneumonia, unspecified organism Selam Pichardo MD Mar 04, 2018 16:31
[2018-03-04] MEDS: ACETAMINOPHEN 325 MG TAB PO PRN ×2 (16:33→23:50)
[2018-03-04] MEDS: PRAVASTATIN SOD 80 MG TAB PO SCH (20:05)
[2018-03-05] VITALS (12 sets, daily range): BP systolic 122–156; BP diastolic 62–87; PULSE 68–95; RESP 17–18; TEMP 98.8–102.7; O2SAT 93–97
[2018-03-05] MEDS: PIPERACIL-TAZO 4.5 GM PREMIX 100 ML IV SCH ×3 (05:04→17:25)
[2018-03-05] MEDS: ACETAMINOPHEN 325 MG TAB PO PRN ×2 (05:05→20:58)
[2018-03-05] MEDS: HEPARIN SODIUM - SQ 10,000 UNITS/ML VIAL SQ SCH ×3 (05:05→20:59)
[2018-03-05] MEDS: ACETAMINOPHEN/HYDROcodone 325 MG/7.5 MG TAB PO PRN ×3 (05:45→22:19)
[2018-03-05 07:29] LABS: AUTOMATED NEUTROPHIL # 6.9 TH/MM3 (1.8-7.7); BASOPHIL % 0.5 % (0.0-2.0); HEMATOCRIT 26.6 % (39.0-51.0); HEMOGLOBIN 9.3 GM/DL (13.0-17.0); LYMPH % 11.7 % (9.0-44.0); LYMPHOCYTE # 1.1 TH/MM3 (1.0-4.8); MEAN CELL VOLUME 90.7 FL (80.0-100.0); MEAN CORPUSCULAR HEMOGLOBIN 31.7 PG (27.0-34.0); MEAN CORPUSCULAR HGB CONC 34.9 % (32.0-36.0); MEAN PLATELET VOLUME 7.3 FL (7.0-11.0); MONO % 12.1 % (0.0-8.0); MONOCYTE # 1.1 TH/MM3 (0-0.9); NEUT % 75.7 % (16.0-70.0); PLATELET COUNT 570 TH/MM3 (150-450); RED BLOOD COUNT 2.93 MIL/MM3 (4.50-5.90); RED CELL DISTRIBUTION WIDTH 14.2 % (11.6-17.2); WHITE BLOOD COUNT 9.1 TH/MM3 (4.0-11.0)
[2018-03-05] MEDS ORDERED: PHARMACY ORDERED LAB ONE (08:45)
[2018-03-05] MEDS: LACTOBACILLUS ACIDOPHILUS TAB PO SCH ×3 (09:00→17:25)
[2018-03-05] MEDS: DOCUSATE SODIUM 50 MG/SENNA 8.6 MG TAB PO SCH ×2 (09:00→20:58)
[2018-03-05] MEDS: FERROUS SULFATE 325 MG (65 MG ELEMENTAL IRON) TAB PO SCH ×2 (09:07→20:57)
[2018-03-05] MEDS: SODIUM CHLORIDE 0.9% FLUSH 10 ML FLUSH IV FLUSH SCH ×2 (09:11→20:58)
[2018-03-05] MEDS: VANCOMYCIN INJ 2,250 MG in SODIUM CHLORID 0.9% 500 ML INJ 500 ML IV SCH (10:47)
--- NOTE | 2018-03-05 18:39 | HHI.PR ---
Subjective Remarks still c/o cp felt F/C earlier today Objective Vitals Vital Signs Date Time Temp Pulse Resp B/P (MAP) Pulse Ox O2 Delivery O2 Flow Rate FiO2 03/05/18 16:00 99.9 68 18 129/62 (84) 93 03/05/18 15:48 95 03/05/18 14:06 96 03/05/18 12:01 80 03/05/18 12:00 99.3 82 17 122/69 (86) 96 03/05/18 08:00 98.8 72 18 130/76 (94) 97 03/05/18 08:00 Room Air 03/05/18 04:00 100.3 80 18 156/87 (110) 96 03/05/18 04:00 Room Air 03/05/18 03:55 76 03/05/18 00:00 100.0 83 18 149/66 (93) 94 03/05/18 00:00 Room Air 03/04/18 23:21 18 03/04/18 20:10 Room Air 03/04/18 20:02 76 03/04/18 20:00 99.6 77 19 131/64 (86) 94 I/O 03/04/18 03/04/18 03/04/18 03/05/18 03/05/18 03/05/18 07:00 15:00 23:00 07:00 15:00 23:00 Intake Total 720 ml 1142.5 ml Output Total 930 ml 2000 ml 2840 ml 80 ml Balance -930 ml -1280 ml -1697.5 ml -80 ml Intake Oral 720 ml 420 ml IV Total 722.5 ml Output Urine Total 800 ml 1800 ml 2700 ml Chest Tube Drainage Total 130 ml 200 ml 140 ml 80 ml # Bowel Movements 0 1 Result Diagram: 03/05/18 0627 03/04/18 0654 Objective Remarks GENERAL: This is a well-nourished, well-developed patient, in no apparent distress. SKIN: No rashes, warm and dry HEAD: Atraumatic. Normocephalic. EYES: Pupils equal round and reactive. Extraocular motions intact. No scleral icterus. ENT: Nose without bleeding, or drainage, Airway patent. NECK: Trachea midline. Supple CARDIOVASCULAR: Regular rate and rhythm without murmurs, gallops, or rubs. Chest tube in place RESPIRATORY: Left chest crepitus GASTROINTESTINAL: Abdomen soft, non-tender, nondistended. Positive bowel sounds MUSCULOSKELETAL: Extremities without clubbing, cyanosis, or edema. Pedal pulses appreciated NEUROLOGICAL: Awake and alert. Moves all extremity. Normal speech.no focal neurological deficit Procedures Chest tube drainage left pleural effusion A/P Problem List: (1) Sepsis ICD Code: A41.9 - Sepsis, unspecified organism Status: Acute (2) Pneumonia ICD Code: J18.9 - Pneumonia, unspecified organism Status: Acute (3) Reactive airway disease ICD Code: J45.909 - Unspecified asthma, uncomplicated (4) Pleural effusion, left ICD Code: J90 - Pleural effusion, not elsewhere classified Assessment and Plan Mr. 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 Chest x-ray showed left base consolidation consistent with pneumonia. The patient was admitted to the hospitalist service for medical treatment. 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 Parapneumonic effusion Chest x-ray and CT of the chest reviewed by me shows left lower lung consolidation and a mild to moderate left pleural effusion. Still with fever and worsening leukocytosis continue IV vancomycin and IV Zosyn and follow-up sputum AFB and fungal cultures. Repeat sputum and blood cultures. Fungal smear with rare budding yeast cell, AFB stain negative, MTB PCR negative and sputum culture with normal maggie. Nebulizations and oxygen as needed. S/p steroids. CTA of the abdomen pelvis with loculated effusion ? empyema consulted CTS status post CT guided chest tube by IR drainage in the last 3 hours 100 ml drained in the last 3 hours f/u studies. Repeat chest x- ray with enlarging air-containing cavity recommended repeat chest CT. Incentive spirometry Atypical chest pain troponin negative 3. Chest pain resolved likely secondary to COPD exacerbation and pneumonia. Diarrhea likely secondary to antibiotics. C. difficile negative. Resolved. Lactinex. Resolved discontinued normal saline. Continue to monitor BMP. Acute kidney injury Suspect prerenal azotemia from dehydration due to sepsis secondary to pneumonia and COPD exacerbation. Resolving discontinue IV fluids and continue to monitor. Complaining of difficulty voiding check urinalysis Mild transaminitis in patient with history of liver failure This is resolved with negative hepatitis panel. Likely secondary to sepsis Normocytic anemia. Patient complaining of dark stool. Continue to monitor CBC. Transfuse to keep hemoglobin at least 8. Guaiac stools (negative 1) DVT propylaxis - Heparin 5000 units subcu every 8 hours Discharge Planning Patient with cavitary pneumonia, COPD exacerbation, left pleural effusion s/p CT drainage on broad-spectrum IV antibiotics, ID consulted. Not ready for discharge Problem Qualifiers (1) Sepsis: Qualified Codes: A41.9 - Sepsis, unspecified organism (2) Pneumonia: Qualified Codes: J18.1 - Lobar pneumonia, unspecified organism Selam Pichardo MD Mar 05, 2018 18:38
[2018-03-05] MEDS: PRAVASTATIN SOD 80 MG TAB PO SCH (20:58)
[2018-03-06] VITALS (10 sets, daily range): BP systolic 107–149; BP diastolic 56–89; PULSE 68–104; RESP 17–20; TEMP 98.6–101.4; O2SAT 92–97
[2018-03-06] MEDS: PIPERACIL-TAZO 4.5 GM PREMIX 100 ML IV SCH ×4 (00:21→17:41)
[2018-03-06] MEDS: HEPARIN SODIUM - SQ 10,000 UNITS/ML VIAL SQ SCH ×3 (05:07→21:14)
[2018-03-06] MEDS: ACETAMINOPHEN/HYDROcodone 325 MG/7.5 MG TAB PO PRN ×3 (05:14→22:49)
[2018-03-06] MEDS: LACTOBACILLUS ACIDOPHILUS TAB PO SCH ×3 (09:31→18:15)
[2018-03-06] MEDS: SODIUM CHLORIDE 0.9% FLUSH 10 ML FLUSH IV FLUSH SCH ×2 (09:31→21:14)
[2018-03-06] MEDS: DOCUSATE SODIUM 50 MG/SENNA 8.6 MG TAB PO SCH ×2 (09:31→21:13)
[2018-03-06] MEDS: FERROUS SULFATE 325 MG (65 MG ELEMENTAL IRON) TAB PO SCH ×2 (09:31→21:14)
[2018-03-06] MEDS: ACETAMINOPHEN 325 MG TAB PO PRN ×2 (12:50→21:14)
--- NOTE | 2018-03-06 12:52 | HHI.PR ---
Subjective Remarks Patient just had a fever 101.3, I discussed with the nurse he will be given Tylenol Patient is on Zosyn will notify ID, the drainer of his chest become serous now, will need to notify thoracic surgeon Objective Vitals Vital Signs Date Time Temp Pulse Resp B/P (MAP) Pulse Ox O2 Delivery O2 Flow Rate FiO2 03/06/18 10:05 92 21 03/06/18 08:00 68 03/06/18 08:00 96 Room Air 03/06/18 08:00 99.0 73 20 119/73 (88) 96 03/06/18 04:00 99.1 72 19 149/89 (109) 96 03/06/18 04:00 Room Air 03/06/18 03:44 82 03/06/18 00:00 98.6 72 17 131/75 (93) 93 03/06/18 00:00 Room Air 03/05/18 23:48 85 03/05/18 23:45 18 03/05/18 21:00 Room Air 03/05/18 20:00 91 03/05/18 20:00 102.7 85 17 131/73 (92) 95 03/05/18 16:00 99.9 68 18 129/62 (84) 93 03/05/18 15:48 95 03/05/18 14:06 96 I/O 03/05/18 03/05/18 03/05/18 03/06/18 03/06/18 03/06/18 07:00 15:00 23:00 07:00 15:00 23:00 Intake Total 1142.5 ml 100 ml 100 ml 660 ml Output Total 2840 ml 80 ml 2210 ml 450 ml Balance -1697.5 ml 100 ml 20 ml -1550 ml -450 ml Intake Oral 420 ml 460 ml IV Total 722.5 ml 100 ml 100 ml 200 ml Output Urine Total 2700 ml 2150 ml 450 ml Chest Tube Drainage Total 140 ml 80 ml 60 ml # Bowel Movements 1 0 Result Diagram: 03/05/18 0627 03/04/18 0654 Objective Remarks GENERAL: This is a well-nourished, well-developed patient, in no apparent distress. SKIN: No rashes, warm and dry HEAD: Atraumatic. Normocephalic. EYES: Pupils equal round and reactive. Extraocular motions intact. No scleral icterus. ENT: Nose without bleeding, or drainage, Airway patent. NECK: Trachea midline. Supple CARDIOVASCULAR: Regular rate and rhythm without murmurs, gallops, or rubs. Chest tube in place RESPIRATORY: Left chest crepitus GASTROINTESTINAL: Abdomen soft, non-tender, nondistended. Positive bowel sounds MUSCULOSKELETAL: Extremities without clubbing, cyanosis, or edema. Pedal pulses appreciated NEUROLOGICAL: Awake and alert. Moves all extremity. Normal speech.no focal neurological deficit Procedures Chest tube drainage left pleural effusion A/P Problem List: (1) Sepsis ICD Code: A41.9 - Sepsis, unspecified organism Status: Acute (2) Pneumonia ICD Code: J18.9 - Pneumonia, unspecified organism Status: Acute (3) Reactive airway disease ICD Code: J45.909 - Unspecified asthma, uncomplicated (4) Pleural effusion, left ICD Code: J90 - Pleural effusion, not elsewhere classified Assessment and Plan Mr. 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 Chest x-ray showed left base consolidation consistent with pneumonia. The patient was admitted to the hospitalist service for medical treatment. 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 Parapneumonic effusion Chest x-ray and CT of the chest reviewed by me shows left lower lung consolidation and a mild to moderate left pleural effusion. Still with fever and worsening leukocytosis continue IV vancomycin and IV Zosyn and follow-up sputum AFB and fungal cultures. Repeat sputum and blood cultures. Fungal smear with rare budding yeast cell, AFB stain negative, MTB PCR negative and sputum culture with normal maggie. Nebulizations and oxygen as needed. S/p steroids. CTA of the abdomen pelvis with loculated effusion ? empyema consulted CTS status post CT guided chest tube by IR drainage in the last 3 hours 100 ml drained in the last 3 hours f/u studies. Repeat chest x- ray with enlarging air-containing cavity recommended repeat chest CT. Incentive spirometry Atypical chest pain troponin negative 3. Chest pain resolved likely secondary to COPD exacerbation and pneumonia. Diarrhea likely secondary to antibiotics. C. difficile negative. Resolved. Lactinex. Resolved discontinued normal saline. Continue to monitor BMP. Acute kidney injury Suspect prerenal azotemia from dehydration due to sepsis secondary to pneumonia and COPD exacerbation. Resolving discontinue IV fluids and continue to monitor. Complaining of difficulty voiding check urinalysis Mild transaminitis in patient with history of liver failure This is resolved with negative hepatitis panel. Likely secondary to sepsis Normocytic anemia. Patient complaining of dark stool. Continue to monitor CBC. Transfuse to keep hemoglobin at least 8. Guaiac stools (negative 1) DVT propylaxis - Heparin 5000 units subcu every 8 hours Discharge Planning Patient with cavitary pneumonia, COPD exacerbation, left pleural effusion s/p CT drainage on broad-spectrum IV antibiotics, ID consulted. Not ready for discharge Problem Qualifiers (1) Sepsis: Qualified Codes: A41.9 - Sepsis, unspecified organism (2) Pneumonia: Qualified Codes: J18.1 - Lobar pneumonia, unspecified organism Selam Pichardo MD Mar 06, 2018 12:51
[2018-03-06 16:02] LABS: AUTOMATED NEUTROPHIL # 5.5 TH/MM3 (1.8-7.7); BASOPHIL # 0.1 TH/MM3 (0-0.2); BASOPHIL % 0.8 % (0.0-2.0); HEMATOCRIT 30.3 % (39.0-51.0); HEMOGLOBIN 10.2 GM/DL (13.0-17.0); LYMPH % 15.9 % (9.0-44.0); LYMPHOCYTE # 1.3 TH/MM3 (1.0-4.8); MEAN CELL VOLUME 90.2 FL (80.0-100.0); MEAN CORPUSCULAR HEMOGLOBIN 30.5 PG (27.0-34.0); MEAN CORPUSCULAR HGB CONC 33.8 % (32.0-36.0); MONO % 14.3 % (0.0-8.0); MONOCYTE # 1.1 TH/MM3 (0-0.9); PLATELET COUNT 593 TH/MM3 (150-450); RED BLOOD COUNT 3.35 MIL/MM3 (4.50-5.90); RED CELL DISTRIBUTION WIDTH 14.4 % (11.6-17.2); WHITE BLOOD COUNT 7.9 TH/MM3 (4.0-11.0)
[2018-03-06] MEDS ORDERED: ZOLPIDEM TARTRATE 5 MG TAB PO PRN (17:45)
--- NOTE | 2018-03-06 17:56 | HHI.IDPN ---
Subjective Subjective Remarks Patient seen and examined with Dr. Toy Donaldson for Dr. Romero 52 yo male presents from [facility] with 2-3 weeks of productive cough , very small intermittent hemoptysis, fever up to 102.8, chills weight loss. His CT reviewed revealed cavitary PNA He denies ever having positive TB or HIV test Infectious disease consulted for evaluation and management of left lower lobe cavitary lung lesion. Notes reviewed Patient seen and examined Patient with persistent fevers C/O fever and chills "feels like I have a cold in my back" reports left sided back pain Tmax 102.7 WBC WNL - was as high as 45.3 s/p left thoracentesis and drain placement, cytology with necrotic tissue, fibrin and exudate, no malignancy Cultures with no growth sputum cx growing yeast Antibiotics IV Zosyn Lines PIV without e/o infection Past Medical History CVA in 2001 with left-sided facial droop Liver dysfunction secondary to atorvastatin use in 1997 [place] 1986 -patient states he refused cardiac catheterization or any further workup for this (Angeles Barbosa) Allergies: Coded Allergies: atorvastatin (Verified Adverse Reaction, Severe, Liver failure, 02/23/18) Objective . Vital Signs Date Time Temp Pulse Resp B/P (MAP) Pulse Ox O2 Delivery O2 Flow Rate FiO2 03/06/18 16:00 69 03/06/18 12:00 91 03/06/18 10:05 92 21 03/06/18 08:00 68 03/06/18 08:00 96 Room Air 03/06/18 08:00 99.0 73 20 119/73 (88) 96 03/06/18 04:00 99.1 72 19 149/89 (109) 96 03/06/18 04:00 Room Air 03/06/18 03:44 82 03/06/18 00:00 98.6 72 17 131/75 (93) 93 03/06/18 00:00 Room Air 03/05/18 23:48 85 03/05/18 23:45 18 03/05/18 21:00 Room Air 03/05/18 20:00 91 03/05/18 20:00 102.7 85 17 131/73 (92) 95 03/06/18 03/06/18 03/07/18 15:00 23:00 07:00 Output Total 550 ml Balance -550 ml Output Urine Total 550 ml . Laboratory Tests Test 03/05/18 06:27 03/06/18 15:41 White Blood Count 9.1 TH/MM3 7.9 TH/MM3 Red Blood Count 2.93 MIL/MM3 3.35 MIL/MM3 Hemoglobin 9.3 GM/DL 10.2 GM/DL Hematocrit 26.6 % 30.3 % Mean Corpuscular Volume 90.7 FL 90.2 FL Mean Corpuscular Hemoglobin 31.7 PG 30.5 PG Mean Corpuscular Hemoglobin Concent 34.9 % 33.8 % Red Cell Distribution Width 14.2 % 14.4 % Platelet Count 570 TH/MM3 593 TH/MM3 Mean Platelet Volume 7.3 FL 7.0 FL Neutrophils (%) (Auto) 75.7 % 69.0 % Lymphocytes (%) (Auto) 11.7 % 15.9 % Monocytes (%) (Auto) 12.1 % 14.3 % Eosinophils (%) (Auto) 0.0 % 0.0 % Basophils (%) (Auto) 0.5 % 0.8 % Neutrophils # (Auto) 6.9 TH/MM3 5.5 TH/MM3 Lymphocytes # (Auto) 1.1 TH/MM3 1.3 TH/MM3 Monocytes # (Auto) 1.1 TH/MM3 1.1 TH/MM3 Eosinophils # (Auto) 0.0 TH/MM3 0.0 TH/MM3 Basophils # (Auto) 0.0 TH/MM3 0.1 TH/MM3 CBC Comment DIFF FINAL DIFF FINAL Differential Comment Imaging Last Impressions Chest X-Ray 03/03/18 0000 Signed Impressions: Service Date/Time: Saturday, March 03, 2018 10:20 - CONCLUSION: Increasing localized oval air-containing structure in the lateral left chest. This probably represents air filling the loculated pleural effusion cavity, but there has been a significant increase in size. Chest drainage catheter remains projected in the lower left chest and dense consolidation in the medial left lower lobe is stable. Recommend performing CT to further characterize the enlarging air-containing cavity. Vadim Baird MD Thoracentesis 03/01/18 0000 Signed Impressions: Service Date/Time: Thursday, March 01, 2018 14:31 - CONCLUSION: Uncomplicated CT-guided thoracentesis and chest tube placement as above. Delroy Deloen MD Abdomen/Pelvis CT 02/26/18 0000 Signed Impressions: Service Date/Time: Tuesday, February 27, 2018 14:19 - CONCLUSION: 1. Multiloculated air and fluid collection in the left hemithorax similar to recent chest CT concerning for a left sided empyema with adjacent lung consolidation and atelectasis. 2. Mild anasarca. Trace free fluid. No obstruction or free air. Balaji Stapleton MD Chest Ultrasound 02/25/18 0000 Signed Impressions: Service Date/Time: January 10:42 - CONCLUSION: Left pleural effusion is too small and loculated for ultrasound-guided thoracentesis. CT guided thoracentesis is recommended. Ramin Angulo MD Chest CT 02/23/18 0000 Signed Impressions: Service Date/Time: Friday, February 23, 2018 19:12 - CONCLUSION: Consolidation throughout the left lower lobe with a mild to moderate left pleural effusion. This is likely secondary to inflammatory/infectious process although other underlying processes cannot be excluded. There is cavitary change in the left lung base. Melvin Child MD Physical Exam CONSTITUTIONAL/GENERAL: This is a [facility] male patient, in no apparent distress. Awake and alert. Appears comfortable. SKIN: Warm and dry. No rash appreciated. HEAD: Atraumatic, normocephalic EYES: EOMI, No scleral icterus, No injection or drainage. ENT: Nose without any bleeding or purulent drainage. MMM. NECK: Trachea midline. CARDIOVASCULAR: Regular rate and rhythm without murmurs, gallops, or rubs. RESPIRATORY/CHEST: Diminished air entry left base with harsh crepitus ?air. CT in place on left. GASTROINTESTINAL: Abdomen soft, nondistended. MUSCULOSKELETAL: Extremities without clubbing, cyanosis, or edema. LYMPHATICS: No palpable cervical or supraclavicular adenopathy. NEUROLOGICAL: Awake and alert. Motor and sensory grossly within normal limits. Normal speech. PSYCHIATRIC: Appropriate mood and affect. Normal insight and judgement. (Angeles Barbosa) Assessment & Plan Remarks ASSESSMENT: Cavitary PNA Growing yeast in sputum - probably just colonization 2/2 abx use doubt clinical significance Empyema L pleural space, clx negative - likely 2/2 prior abx use - persistent fever, ? drug fever - still with diffuse pleural thickening and consolidation in left lower lobe , with thick fluid and small air pockets Increased TB risk (incarcerated), but negative no prior TB h/o Worsening leukocytosis - steroids may contribute, but still a pretty high leukocytosis diarrhea, RLQ good and unexplained leukocytosis, C diff negative HIV negative QFT is indeterminant RECOMMENDATIONS: Discontinue Zosyn Change to po Flagyl and IV Cefepime Monitor fevers Consult Pulmonary medicine Recommend reconsult [facility] on Thursday to reassess patient for possible VATS vs decortication procedure Will continue to follow (Angeles Barbosa) Remarks The exam, history, and the medical decision-making described in the above note were completed with the assistance of the mid-level provider. I reviewed and agree with the findings presented. I attest that I had a [id number] encounter with the patient on the same day, and personally performed and documented my assessment and findings in the medical record. Reviewed chart, examine pt. Patient reports chills, is covered under blankets. Reports chest pain on deep inspiration On exam: creps and decreased AE on left > R side. CT left side in place Recs DC Zosyn IV Start Cefepime IV Continue Flagyl oral If fevers persist will start Vanco IV (target 15-20) In my opinion patient needs a VATS at the least for source control. Reconsult CT Surgery on Thursday (Moon Yeager MD) Angeles Barbosa Mar 06, 2018 17:56 Moon Yeager MD Mar 06, 2018 19:00
[2018-03-06] MEDS: PRAVASTATIN SOD 80 MG TAB PO SCH (21:14)
[2018-03-06] MEDS: metroNIDAZOLE 500 MG TAB PO SCH (21:14)
[2018-03-06] MEDS: CEFEPIME INJ 2,000 MG in SODIUM CHLORIDE 0.9% INJ 100 ML IV SCH (21:14)
[2018-03-07] VITALS (8 sets, daily range): BP systolic 104–117; BP diastolic 60–67; PULSE 71–84; RESP 16–20; TEMP 98.8–100.1; O2SAT 95–98
[2018-03-07] MEDS: CEFEPIME INJ 2,000 MG in SODIUM CHLORIDE 0.9% INJ 100 ML IV SCH ×3 (03:46→20:16)
[2018-03-07] MEDS: ACETAMINOPHEN/HYDROcodone 325 MG/7.5 MG TAB PO PRN ×5 (04:23→22:28)
[2018-03-07] MEDS: metroNIDAZOLE 500 MG TAB PO SCH ×3 (06:20→22:28)
[2018-03-07] MEDS: HEPARIN SODIUM - SQ 10,000 UNITS/ML VIAL SQ SCH ×3 (06:20→22:28)
[2018-03-07 06:34] LABS: AUTOMATED NEUTROPHIL # 5.2 TH/MM3 (1.8-7.7); BASOPHIL % 0.4 % (0.0-2.0); HEMATOCRIT 28.5 % (39.0-51.0); HEMOGLOBIN 9.8 GM/DL (13.0-17.0); LYMPH % 21.8 % (9.0-44.0); LYMPHOCYTE # 1.8 TH/MM3 (1.0-4.8); MEAN CELL VOLUME 90.2 FL (80.0-100.0); MEAN CORPUSCULAR HEMOGLOBIN 31.1 PG (27.0-34.0); MEAN CORPUSCULAR HGB CONC 34.5 % (32.0-36.0); MEAN PLATELET VOLUME 7.2 FL (7.0-11.0); MONO % 13.2 % (0.0-8.0); MONOCYTE # 1.1 TH/MM3 (0-0.9); NEUT % 64.6 % (16.0-70.0); PLATELET COUNT 599 TH/MM3 (150-450); RED BLOOD COUNT 3.16 MIL/MM3 (4.50-5.90); RED CELL DISTRIBUTION WIDTH 14.7 % (11.6-17.2); WHITE BLOOD COUNT 8.1 TH/MM3 (4.0-11.0)
[2018-03-07] MEDS: DOCUSATE SODIUM 50 MG/SENNA 8.6 MG TAB PO SCH ×2 (08:43→20:16)
[2018-03-07] MEDS: FERROUS SULFATE 325 MG (65 MG ELEMENTAL IRON) TAB PO SCH ×2 (08:43→20:16)
[2018-03-07] MEDS: LACTOBACILLUS ACIDOPHILUS TAB PO SCH ×3 (08:43→17:14)
[2018-03-07] MEDS: SODIUM CHLORIDE 0.9% FLUSH 10 ML FLUSH IV FLUSH SCH ×2 (08:44→20:16)
--- NOTE | 2018-03-07 14:11 | HHI.PR ---
Subjective Remarks Patient told me he thinks his fever is better after antibiotic was changed Last fever was last night around midnight with 99.7 We will on chest tube Objective Vitals Vital Signs Date Time Temp Pulse Resp B/P (MAP) Pulse Ox O2 Delivery O2 Flow Rate FiO2 03/07/18 12:00 78 03/07/18 12:00 98.8 77 20 104/60 (75) 96 03/07/18 08:01 96 03/07/18 08:00 99.1 73 20 117/67 (84) 96 03/07/18 08:00 75 03/07/18 07:37 Room Air 03/07/18 06:04 99.6 80 18 116/65 (82) 95 03/07/18 04:00 Room Air 03/07/18 04:00 71 03/07/18 00:00 Room Air 03/07/18 00:00 71 03/06/18 23:19 99.7 72 18 107/56 (73) 96 03/06/18 21:28 21 03/06/18 20:00 Room Air 03/06/18 20:00 104 03/06/18 19:59 100.6 88 20 118/57 (77) 96 03/06/18 16:00 69 03/06/18 16:00 99.2 79 20 118/75 (89) 97 I/O 03/06/18 03/06/18 03/06/18 03/07/18 03/07/18 03/07/18 07:00 15:00 23:00 07:00 15:00 23:00 Intake Total 660 ml 960 ml 480 ml Output Total 2210 ml 550 ml 420 ml 1100 ml Balance -1550 ml -550 ml 540 ml -620 ml Intake Oral 460 ml 960 ml 480 ml IV Total 200 ml Output Urine Total 2150 ml 550 ml 350 ml 1075 ml Chest Tube Drainage Total 60 ml 70 ml 25 ml # Voids 2 # Bowel Movements 0 1 Result Diagram: 03/07/18 0538 03/04/18 0654 Objective Remarks GENERAL: This is a well-nourished, well-developed patient, in no apparent distress. SKIN: No rashes, warm and dry HEAD: Atraumatic. Normocephalic. EYES: Pupils equal round and reactive. Extraocular motions intact. No scleral icterus. ENT: Nose without bleeding, or drainage, Airway patent. NECK: Trachea midline. Supple CARDIOVASCULAR: Regular rate and rhythm without murmurs, gallops, or rubs. Chest tube in place RESPIRATORY: Left chest crepitus GASTROINTESTINAL: Abdomen soft, non-tender, nondistended. Positive bowel sounds MUSCULOSKELETAL: Extremities without clubbing, cyanosis, or edema. Pedal pulses appreciated NEUROLOGICAL: Awake and alert. Moves all extremity. Normal speech.no focal neurological deficit Procedures Chest tube drainage left pleural effusion A/P Problem List: (1) Sepsis ICD Code: A41.9 - Sepsis, unspecified organism Status: Acute (2) Pneumonia ICD Code: J18.9 - Pneumonia, unspecified organism Status: Acute (3) Reactive airway disease ICD Code: J45.909 - Unspecified asthma, uncomplicated (4) Pleural effusion, left ICD Code: J90 - Pleural effusion, not elsewhere classified Assessment and Plan Mr. 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 Chest x-ray showed left base consolidation consistent with pneumonia. The patient was admitted to the hospitalist service for medical treatment. 03/04: WBC dropped to 13 K, continue current care, chest tube management, Repeat CBC BMP in a.m., monitor temperature, blood pressure 03/05: wbc back to ml level, continue CT management 03/06: New spiking fever 101.3 today, patient is on Zosyn, will monitor CBC will discuss with ID 03/07: No fever since last night, 99.4, appreciate ID recommendation I discussed with Dr. ingram, she changed Zosyn, and recommended pulmonary and reconsult for vascular surgery, indeed patient may need VATS , or decortication, monitor CBC and temperature Left lung base pneumonia Sepsis Cavitary lung lesion in a correctional facility inmate Reactive airway disease. Parapneumonic effusion Chest x-ray and CT of the chest reviewed by me shows left lower lung consolidation and a mild to moderate left pleural effusion. Still with fever and worsening leukocytosis continue IV vancomycin and IV Zosyn and follow-up sputum AFB and fungal cultures. Repeat sputum and blood cultures. Fungal smear with rare budding yeast cell, AFB stain negative, MTB PCR negative and sputum culture with normal maggie. Nebulizations and oxygen as needed. S/p steroids. CTA of the abdomen pelvis with loculated effusion ? empyema consulted CTS status post CT guided chest tube by IR drainage in the last 3 hours 100 ml drained in the last 3 hours f/u studies. Repeat chest x- ray with enlarging air-containing cavity recommended repeat chest CT. Incentive spirometry Atypical chest pain troponin negative 3. Chest pain resolved likely secondary to COPD exacerbation and pneumonia. Diarrhea likely secondary to antibiotics. C. difficile negative. Resolved. Lactinex. Resolved discontinued normal saline. Continue to monitor BMP. Acute kidney injury Suspect prerenal azotemia from dehydration due to sepsis secondary to pneumonia and COPD exacerbation. Resolving discontinue IV fluids and continue to monitor. Complaining of difficulty voiding check urinalysis Mild transaminitis in patient with history of liver failure This is resolved with negative hepatitis panel. Likely secondary to sepsis Normocytic anemia. Patient complaining of dark stool. Continue to monitor CBC. Transfuse to keep hemoglobin at least 8. Guaiac stools (negative 1) DVT propylaxis - Heparin 5000 units subcu every 8 hours Discharge Planning Patient with cavitary pneumonia, COPD exacerbation, left pleural effusion s/p CT drainage on broad-spectrum IV antibiotics, ID consulted. Not ready for discharge Problem Qualifiers (1) Sepsis: Qualified Codes: A41.9 - Sepsis, unspecified organism (2) Pneumonia: Qualified Codes: J18.1 - Lobar pneumonia, unspecified organism Selam Pichardo MD Mar 07, 2018 14:11
--- NOTE | 2018-03-07 15:39 | RADRPT ---
EXAM DATE/TIME: 03/07/2018 15:20 [place] COMPARISON: CT THORAX W CONTRAST, March 03, 2018, 15:31. INDICATIONS : Shortness of breath. MEDICAL HISTORY : Cardiovascular disease. Stroke. Hypertension. SURGICAL HISTORY : None. ENCOUNTER: Subsequent ACUITY: 1 week PAIN SCORE: 0/10 LOCATION: Bilateral chest FINDINGS: Compared March 03. Previous left-sided hydropneumothorax has decreased in size with a small residual a mount of loculated air in the lower left hemithorax laterally. Consolidation at the left base is also improved. Minimal right basal atelectasis. Small caliber left chest tube remains. No right-sided pne umothorax. CONCLUSION: 1. Interval improvement in loculated left hydropneumothorax and left basilar lung consolidation since March 03. Balaji Stapleton MD on March 07, 2018 at 15:34 Board Certified Radiologist. This report was verified electronically.
--- NOTE | 2018-03-07 17:07 | HHI.IDPN ---
Subjective Subjective Remarks Patient seen and examined with Dr. Toy Donaldson for Dr. Romero 52 yo male presents from [facility] facility with 2-3 weeks of productive cough , very small intermittent hemoptysis, fever up to 102.8, chills weight loss. His CT reviewed revealed cavitary PNA. He denies ever having positive TB or HIV test Infectious disease consulted for evaluation and management of left lower lobe cavitary lung lesion. 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 Vital Signs Date Time Temp Pulse Resp B/P (MAP) Pulse Ox O2 Delivery O2 Flow Rate FiO2 03/07/18 12:00 78 03/07/18 12:00 98.8 77 20 104/60 (75) 96 03/07/18 08:01 96 03/07/18 08:00 99.1 73 20 117/67 (84) 96 03/07/18 08:00 75 03/07/18 07:37 Room Air 03/07/18 06:04 99.6 80 18 116/65 (82) 95 03/07/18 04:00 Room Air 03/07/18 04:00 71 03/07/18 00:00 Room Air 03/07/18 00:00 71 03/06/18 23:19 99.7 72 18 107/56 (73) 96 03/06/18 21:28 21 03/06/18 20:00 Room Air 03/06/18 20:00 104 03/06/18 19:59 100.6 88 20 118/57 (77) 96 . Laboratory Tests Test 03/06/18 15:41 03/07/18 05:38 White Blood Count 7.9 TH/MM3 8.1 TH/MM3 Red Blood Count 3.35 MIL/MM3 3.16 MIL/MM3 Hemoglobin 10.2 GM/DL 9.8 GM/DL Hematocrit 30.3 % 28.5 % Mean Corpuscular Volume 90.2 FL 90.2 FL Mean Corpuscular Hemoglobin 30.5 PG 31.1 PG Mean Corpuscular Hemoglobin Concent 33.8 % 34.5 % Red Cell Distribution Width 14.4 % 14.7 % Platelet Count 593 TH/MM3 599 TH/MM3 Mean Platelet Volume 7.0 FL 7.2 FL Neutrophils (%) (Auto) 69.0 % 64.6 % Lymphocytes (%) (Auto) 15.9 % 21.8 % Monocytes (%) (Auto) 14.3 % 13.2 % Eosinophils (%) (Auto) 0.0 % 0.0 % Basophils (%) (Auto) 0.8 % 0.4 % Neutrophils # (Auto) 5.5 TH/MM3 5.2 TH/MM3 Lymphocytes # (Auto) 1.3 TH/MM3 1.8 TH/MM3 Monocytes # (Auto) 1.1 TH/MM3 1.1 TH/MM3 Eosinophils # (Auto) 0.0 TH/MM3 0.0 TH/MM3 Basophils # (Auto) 0.1 TH/MM3 0.0 TH/MM3 CBC Comment DIFF FINAL DIFF FINAL Differential Comment Imaging Last Impressions Chest X-Ray 03/07/18 0000 Signed Impressions: Service Date/Time: Wednesday, March 07, 2018 15:20 - CONCLUSION: 1. Interval improvement in loculated left hydropneumothorax and left basilar lung consolidation since March 03. Balaji Stapleton MD Chest CT 03/03/18 0000 Signed Impressions: Service Date/Time: Saturday, March 03, 2018 15:31 - CONCLUSION: Hydropneumothorax at the left lung base with diffuse pleural thickening and consolidation in the left lower lobe. There is thick fluid with small air pockets in the fluid throughout the left lung base. Findings would be most consistent with empyema. The fluid at the left lung base has been drained however, the lung has not reinflated. Bhavin Aguilar MD Thoracentesis 03/01/18 0000 Signed Impressions: Service Date/Time: Thursday, March 01, 2018 14:31 - CONCLUSION: Uncomplicated CT-guided thoracentesis and chest tube placement as above. Delroy Deleon MD Abdomen/Pelvis CT 02/26/18 0000 Signed Impressions: Service Date/Time: Tuesday, February 27, 2018 14:19 - CONCLUSION: 1. Multiloculated air and fluid collection in the left hemithorax similar to recent chest CT concerning for a left sided empyema with adjacent lung consolidation and atelectasis. 2. Mild anasarca. Trace free fluid. No obstruction or free air. Balaji Stapleton MD Chest Ultrasound 02/25/18 0000 Signed Impressions: Service Date/Time: January 10:42 - CONCLUSION: Left pleural effusion is too small and loculated for ultrasound-guided thoracentesis. CT guided thoracentesis is recommended. Ramin Angulo MD Physical Exam CONSTITUTIONAL/GENERAL: This is a WDWN male patient, in no apparent distress. Awake and alert. SKIN: Warm and dry. No rash appreciated. HEAD: Atraumatic, normocephalic EYES: EOMI, No scleral icterus, No injection or drainage. ENT: Nose without any bleeding or purulent drainage. MMM. NECK: Trachea midline. CARDIOVASCULAR: Regular rate and rhythm without murmurs, gallops, or rubs. RESPIRATORY/CHEST: Diminished air entry left base with harsh crepitus ?air. CT in place on left. GASTROINTESTINAL: Abdomen soft, nondistended. MUSCULOSKELETAL: Extremities without clubbing, cyanosis, or edema. LYMPHATICS: No palpable cervical or supraclavicular adenopathy. NEUROLOGICAL: Awake and alert. Motor and sensory grossly within normal limits. Normal speech. PSYCHIATRIC: Appropriate mood and affect. Normal insight and judgement. (Angeles Barbosa) Assessment & Plan Remarks ASSESSMENT: Cavitary PNA Growing yeast in sputum - probably just colonization 2/2 abx use doubt clinical significance Empyema L pleural space, clx negative - likely 2/2 prior abx use - persistent fever, ? drug fever, improved since discontinuing Zosyn - CT chest still with diffuse pleural thickening and consolidation in left lower lobe, with thick fluid and small air pockets - CXR 03/07/18 shows interval improvement in loculated left hydropneumothorax and left basilar lung consolidation - Pulmonary medicine following Increased TB risk (incarcerated), but negative no prior TB h/o Worsening leukocytosis - steroids may contribute, but still a pretty high leukocytosis -improved, white count now WNL HIV negative QFT is indeterminant RECOMMENDATIONS: Continue on po Flagyl and IV Cefepime Monitor fevers Recommend reconsult [facility] on Thursday to reassess patient for possible VATS vs decortication procedure Will continue to follow (Angeles Barbosa) Remarks The exam, history, and the medical decision-making described in the above note were completed with the assistance of the mid-level provider. I reviewed and agree with the findings presented. I attest that I had a [id number] encounter with the patient on the same day, and personally performed and documented my assessment and findings in the medical record. Dw patient in room in presence he needs VATS or Decortication. Will reconsult CTS. (Moon Yeager MD) Angeles Barbosa Mar 07, 2018 17:07 Moon Yeager MD Mar 07, 2018 17:44
[2018-03-07] MEDS: PRAVASTATIN SOD 80 MG TAB PO SCH (20:16)
[2018-03-08] VITALS (9 sets, daily range): BP systolic 111–126; BP diastolic 58–67; PULSE 68–85; RESP 17–20; TEMP 98.8–100.4; O2SAT 95–97
[2018-03-08] MEDS: ACETAMINOPHEN 325 MG TAB PO PRN ×2 (00:41→15:34)
[2018-03-08] MEDS: ACETAMINOPHEN/HYDROcodone 325 MG/7.5 MG TAB PO PRN ×4 (04:01→21:41)
[2018-03-08] MEDS: CEFEPIME INJ 2,000 MG in SODIUM CHLORIDE 0.9% INJ 100 ML IV SCH ×3 (04:01→20:53)
[2018-03-08] MEDS: metroNIDAZOLE 500 MG TAB PO SCH ×3 (06:05→21:41)
[2018-03-08] MEDS: HEPARIN SODIUM - SQ 10,000 UNITS/ML VIAL SQ SCH ×3 (06:05→21:42)
[2018-03-08] MEDS: FERROUS SULFATE 325 MG (65 MG ELEMENTAL IRON) TAB PO SCH ×2 (08:56→20:57)
[2018-03-08] MEDS: DOCUSATE SODIUM 50 MG/SENNA 8.6 MG TAB PO SCH ×2 (08:56→20:57)
[2018-03-08] MEDS: LACTOBACILLUS ACIDOPHILUS TAB PO SCH ×3 (08:56→17:21)
[2018-03-08] MEDS: SODIUM CHLORIDE 0.9% FLUSH 10 ML FLUSH IV FLUSH SCH ×2 (08:56→20:55)
--- NOTE | 2018-03-08 11:19 | MB ---
cc: Des Jacobs MD DATE: 03/07/2018 REQUESTING PHYSICIAN: Dr. Pichardo REASON FOR CONSULTATION: Evaluate for Empyema. HISTORY OF PRESENT ILLNESS: Mr. Trejo is a 52-year-old -[place] male who is a prisoner [facility]. He was brought to the ER with cough and fever. He was having fever up to 102.8. The patient was brought to the hospital, found to have left lower lobe pneumonia with a pleural effusion. He had a chest tube placed. His cultures are negative. AFB is negative. Fungal smears are negative. He had a repeat CT scan of his chest done, which shows hydropneumothorax at the left lung base, with diffuse pleural thickening and consolidation in the left lower lobe. There is a small pocket of thick fluid in the left lung base. LABORATORY DATA: His CBC shows WBC count 8.1, hemoglobin 9.8, hematocrit 28.5, platelet count 599. Sodium 136, potassium 3.6, chloride 101, CO2 27, BUN 7, creatinine 0.88. PAST MEDICAL HISTORY: Significant for history of hypertension, liver dysfunction, history of CVA, history of heart disease in the past, history of knee surgery. MEDICATIONS: He is currently taking Flagyl 500 mg every 8 hours, Cefepime 2 g every 8 hours, [place] every 4 hours, pravastatin 80 mg a day, heparin 5000 every 8 hours, Robitussin-DM cough syrup. ALLERGIES: ALLERGIC TO LIPITOR. SOCIAL HISTORY: He is single. He has been incarcerated and he says most of the life he spends in the chair. He has a history of smoking until 18 months ago. No alcohol or drug abuse. FAMILY HISTORY: He has brothers and sisters. Father lives in this area. REVIEW OF SYSTEMS: Denies any weight loss. No headache or dizziness. No DVT or pulmonary embolism. No exposure to TB. PHYSICAL EXAMINATION: GENERAL: WBWN AA male, not in any acute distress. VITAL SIGNS: Blood pressure 104/60, heart rate 78, respirations 18, temperature 98.8. HEENT: Examination unremarkable. NECK: Supple. JVD not raised. CHEST: He has decreased breath sounds at the left base. He has a left chest catheter in place. CARDIOVASCULAR: S1, S2 normal. ABDOMEN: Benign. EXTREMITIES: No edema. IMPRESSION: 1. Left lung loculated pleural effusion, with a trapped lung, left hydropneumothorax. 2. Hypertension. PLAN: His cultures are negative. Lung is not expanding. He will need a thoracoscopy and possible decortication. The patient is already seen by thoracic surgery. We will reconsult them. Continue antibiotic per ID recommendation. Further treatment depending on course in the hospital. Thank you, Dr. Pichardo for this consult. MD JAYDE Elkins/KARLA , 04:57 PM , 05:23 PM CHEIKH
--- NOTE | 2018-03-08 17:25 | PD.CAR.PN ---
CVT Progress Note Subjective/Hospital Course: still has left loculated hydropneumothorax for left VATS and pleurodesis on thu Objective: GENERAL: SKIN: Warm and dry. HEAD: Normocephalic. EYES: No scleral icterus. No injection or drainage. NECK: Supple, trachea midline. No JVD or lymphadenopathy. CARDIOVASCULAR: Regular rate and rhythm without murmurs, gallops, or rubs. RESPIRATORY: Breath sounds equal bilaterally. No accessory muscle use. left chest tube in place, no air leak GASTROINTESTINAL: Abdomen soft, non-tender, nondistended. MUSCULOSKELETAL: No cyanosis, or edema. BACK: Nontender without obvious deformity. No CVA tenderness. Vital Signs Date Time Temp Pulse Resp B/P (MAP) Pulse Ox O2 Delivery O2 Flow Rate FiO2 03/08/18 16:01 100.4 79 20 126/62 (83) 97 03/08/18 12:00 99.2 77 20 120/67 (84) 95 03/08/18 12:00 79 03/08/18 11:11 21 03/08/18 08:00 98.8 72 20 111/65 (80) 96 03/08/18 08:00 85 03/08/18 08:00 Room Air 03/08/18 04:00 98.9 76 17 116/60 (78) 97 03/08/18 04:00 70 03/08/18 04:00 Room Air 03/08/18 00:00 74 03/08/18 00:00 99.3 77 17 112/58 (76) 97 03/08/18 00:00 Room Air 03/07/18 20:15 21 03/07/18 20:00 100.1 84 16 117/65 (82) 97 03/07/18 20:00 Room Air 03/07/18 20:00 73 Result Diagram: 03/07/18 0538 03/04/18 0654 (1) Pleural effusion, left Plan: for Left VATS and pleurodesis on thu Ning Membreno Mar 08, 2018 17:25
[2018-03-08] MEDS ORDERED: CEFAZOLIN INJ 2,000 MG in SODIUM CHLORIDE 0.9% INJ 100 ML IV SCH (17:30)
[2018-03-08] MEDS ORDERED: CEFAZOLIN INJ 500 MG in SODIUM CHLORIDE 0.9% IRR BTL 500 ML IRRIGATION SCH (17:30)
[2018-03-08] MEDS ORDERED: SODIUM CHLORIDE 0.9% FLUSH 10 ML FLUSH IV FLUSH PRN (17:30)
--- NOTE | 2018-03-08 17:43 | HHI.PR ---
Subjective Remarks 52 YOAA male, from correctional facility with Pn, Loculated pl eff has Left Chest not draining CT Loculated hydropneumothorax and trapped lung no fever Objective Vital Signs Vital Signs Date Time Temp Pulse Resp B/P (MAP) Pulse Ox O2 Delivery O2 Flow Rate FiO2 03/08/18 16:01 100.4 79 20 126/62 (83) 97 03/08/18 12:00 99.2 77 20 120/67 (84) 95 03/08/18 12:00 79 03/08/18 11:11 21 03/08/18 08:00 98.8 72 20 111/65 (80) 96 03/08/18 08:00 85 03/08/18 08:00 Room Air 03/08/18 04:00 98.9 76 17 116/60 (78) 97 03/08/18 04:00 70 03/08/18 04:00 Room Air 03/08/18 00:00 74 03/08/18 00:00 99.3 77 17 112/58 (76) 97 03/08/18 00:00 Room Air 03/07/18 20:15 21 03/07/18 20:00 100.1 84 16 117/65 (82) 97 03/07/18 20:00 Room Air 03/07/18 20:00 73 I/O 03/07/18 03/07/18 03/07/18 03/08/18 03/08/18 03/08/18 06:59 14:59 22:59 06:59 14:59 22:59 Intake Total 480 ml 600 ml 1200 ml 720 ml Output Total 1100 ml 950 ml 1000 ml 725 ml Balance -620 ml -350 ml 200 ml 720 ml -725 ml Intake Oral 480 ml 600 ml 1200 ml 720 ml Output Urine Total 1075 ml 950 ml 1000 ml 725 ml Chest Tube Drainage Total 25 ml # Voids 2 # Bowel Movements 1 0 Result Diagram: 03/07/18 0538 03/04/18 0654 Objective Remarks GENERAL: WBWN AA male, NAD SKIN: Warm and dry. HEAD: Normocephalic. EYES: No scleral icterus. No injection or drainage. NECK: Supple, trachea midline. No JVD or lymphadenopathy. CARDIOVASCULAR: Regular rate and rhythm without murmurs, gallops, or rubs. RESPIRATORY: Breath sounds equal bilaterally. No accessory muscle use. Left chest tube in place. GASTROINTESTINAL: Abdomen soft, non-tender, nondistended. MUSCULOSKELETAL: No cyanosis, or edema. BACK: Nontender without obvious deformity. No CVA tenderness. A/P Assessment and Plan IMPRESSION: 1. Left lung loculated pleural effusion, with a trapped lung, left hydropneumothorax. 2. Hypertension PLAN: Continue Abx per ID Aerosol nebs left chest tube to suction VATS planned for Wed Des Jacobs MD Mar 08, 2018 17:43
--- NOTE | 2018-03-08 18:39 | HHI.PR ---
Subjective Remarks Resting in bed Fever on and off Appreciate [facility] follow-up plan for VATS on Thursday Objective Vitals Vital Signs Date Time Temp Pulse Resp B/P (MAP) Pulse Ox O2 Delivery O2 Flow Rate FiO2 03/08/18 16:20 73 03/08/18 16:01 100.4 79 20 126/62 (83) 97 03/08/18 12:00 99.2 77 20 120/67 (84) 95 03/08/18 12:00 79 03/08/18 11:11 21 03/08/18 08:00 98.8 72 20 111/65 (80) 96 03/08/18 08:00 85 03/08/18 08:00 Room Air 03/08/18 04:00 98.9 76 17 116/60 (78) 97 03/08/18 04:00 70 03/08/18 04:00 Room Air 03/08/18 00:00 74 03/08/18 00:00 99.3 77 17 112/58 (76) 97 03/08/18 00:00 Room Air 03/07/18 20:15 21 03/07/18 20:00 100.1 84 16 117/65 (82) 97 03/07/18 20:00 Room Air 03/07/18 20:00 73 I/O 03/07/18 03/07/18 03/07/18 03/08/18 03/08/18 03/08/18 07:00 15:00 23:00 07:00 15:00 23:00 Intake Total 480 ml 600 ml 1200 ml 720 ml Output Total 1100 ml 950 ml 1000 ml 725 ml Balance -620 ml -350 ml 200 ml 720 ml -725 ml Intake Oral 480 ml 600 ml 1200 ml 720 ml Output Urine Total 1075 ml 950 ml 1000 ml 725 ml Chest Tube Drainage Total 25 ml # Voids 2 # Bowel Movements 1 0 Result Diagram: 03/07/18 0538 03/04/18 0654 Objective Remarks GENERAL: This is a well-nourished, well-developed patient, in no apparent distress. SKIN: No rashes, warm and dry HEAD: Atraumatic. Normocephalic. EYES: Pupils equal round and reactive. Extraocular motions intact. No scleral icterus. ENT: Nose without bleeding, or drainage, Airway patent. NECK: Trachea midline. Supple CARDIOVASCULAR: Regular rate and rhythm without murmurs, gallops, or rubs. Chest tube in place RESPIRATORY: Left chest crepitus GASTROINTESTINAL: Abdomen soft, non-tender, nondistended. Positive bowel sounds MUSCULOSKELETAL: Extremities without clubbing, cyanosis, or edema. Pedal pulses appreciated NEUROLOGICAL: Awake and alert. Moves all extremity. Normal speech.no focal neurological deficit Procedures Chest tube drainage left pleural effusion A/P Problem List: (1) Sepsis ICD Code: A41.9 - Sepsis, unspecified organism Status: Acute (2) Pneumonia ICD Code: J18.9 - Pneumonia, unspecified organism Status: Acute (3) Reactive airway disease ICD Code: J45.909 - Unspecified asthma, uncomplicated (4) Pleural effusion, left ICD Code: J90 - Pleural effusion, not elsewhere classified Assessment and Plan Mr. 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 Chest x-ray showed left base consolidation consistent with pneumonia. The patient was admitted to the hospitalist service for medical treatment. 03/04: WBC dropped to 13 K, continue current care, chest tube management, Repeat CBC BMP in a.m., monitor temperature, blood pressure 03/05: wbc back to ml level, continue CT management 03/06: New spiking fever 101.3 today, patient is on Zosyn, will monitor CBC will discuss with ID 03/07: No fever since last night, 99.4, appreciate ID recommendation I discussed with Dr. ingram, she changed Zosyn, and recommended pulmonary and reconsult for vascular surgery, indeed patient may need VATS , or decortication, monitor CBC and temperature 03/08: Still running fever occasionally, appreciate [facility] and ID follow-up plan for VATS in on Thursday. 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 Parapneumonic effusion Chest x-ray and CT of the chest reviewed by me shows left lower lung consolidation and a mild to moderate left pleural effusion. Still with fever and worsening leukocytosis continue IV vancomycin and IV Zosyn and follow-up sputum AFB and fungal cultures. Repeat sputum and blood cultures. Fungal smear with rare budding yeast cell, AFB stain negative, MTB PCR negative and sputum culture with normal maggie. Nebulizations and oxygen as needed. S/p steroids. CTA of the abdomen pelvis with loculated effusion ? empyema consulted CTS status post CT guided chest tube by IR drainage in the last 3 hours 100 ml drained in the last 3 hours f/u studies. Repeat chest x- ray with enlarging air-containing cavity recommended repeat chest CT. Incentive spirometry Atypical chest pain troponin negative 3. Chest pain resolved likely secondary to COPD exacerbation and pneumonia. Diarrhea likely secondary to antibiotics. C. difficile negative. Resolved. Lactinex. Resolved discontinued normal saline. Continue to monitor BMP. Acute kidney injury Suspect prerenal azotemia from dehydration due to sepsis secondary to pneumonia and COPD exacerbation. Resolving discontinue IV fluids and continue to monitor. Complaining of difficulty voiding check urinalysis Mild transaminitis in patient with history of liver failure This is resolved with negative hepatitis panel. Likely secondary to sepsis Normocytic anemia. Patient complaining of dark stool. Continue to monitor CBC. Transfuse to keep hemoglobin at least 8. Guaiac stools (negative 1) DVT propylaxis - Heparin 5000 units subcu every 8 hours Discharge Planning Patient with cavitary pneumonia, COPD exacerbation, left pleural effusion s/p CT drainage on broad-spectrum IV antibiotics, ID consulted. Not ready for discharge Problem Qualifiers (1) Sepsis: Qualified Codes: A41.9 - Sepsis, unspecified organism (2) Pneumonia: Qualified Codes: J18.1 - Lobar pneumonia, unspecified organism Selam Pichardo MD Mar 08, 2018 18:39
[2018-03-08] MEDS: PRAVASTATIN SOD 80 MG TAB PO SCH (20:57)
[2018-03-09] VITALS (9 sets, daily range): BP systolic 106–124; BP diastolic 61–82; PULSE 72–98; RESP 16–20; TEMP 99.1–99.9; O2SAT 95–97
[2018-03-09] MEDS: ACETAMINOPHEN/HYDROcodone 325 MG/7.5 MG TAB PO PRN ×2 (04:42→23:24)
[2018-03-09] MEDS: CEFEPIME INJ 2,000 MG in SODIUM CHLORIDE 0.9% INJ 100 ML IV SCH ×3 (04:42→20:40)
[2018-03-09] MEDS: metroNIDAZOLE 500 MG TAB PO SCH ×3 (05:24→20:46)
[2018-03-09] MEDS: HEPARIN SODIUM - SQ 10,000 UNITS/ML VIAL SQ SCH ×3 (05:25→20:46)
[2018-03-09 07:14] LABS: INTERNATIONAL NORMALIZED RATIO 1.2 RATIO; PROTHROMBIN TIME - PATIENT 12.4 SEC (9.8-11.6)
[2018-03-09 07:42] LABS: ALBUMIN 2.3 GM/DL (3.4-5.0); BICARBONATE 25.1 MEQ/L (21.0-32.0); BLOOD UREA NITROGEN 12 MG/DL (7-18); CALCIUM 8.8 MG/DL (8.5-10.1); CHLORIDE 98 MEQ/L (98-107); CREATININE 0.99 MG/DL (0.60-1.30); GLOMERULAR FILTRATION RATE 96 ML/MIN (>89); GLUCOSE,RANDOM 105 MG/DL (74-106); SODIUM (NA) 131 MEQ/L (136-145)
[2018-03-09 07:44] LABS: ALT (GPT) 28 U/L (12-78); AST (GOT) 31 U/L (15-37)
[2018-03-09 07:46] LABS: ALKALINE PHOSPHATASE 52 U/L (45-117); TOTAL BILIRUBIN ADULT 0.3 MG/DL (0.2-1.0); TOTAL PROTEIN 8.9 GM/DL (6.4-8.2)
[2018-03-09] MEDS: DOCUSATE SODIUM 50 MG/SENNA 8.6 MG TAB PO SCH ×2 (08:34→20:38)
[2018-03-09] MEDS: SODIUM CHLORIDE 0.9% FLUSH 10 ML FLUSH IV FLUSH SCH ×2 (08:34→20:40)
[2018-03-09] MEDS: FERROUS SULFATE 325 MG (65 MG ELEMENTAL IRON) TAB PO SCH ×2 (08:36→20:39)
[2018-03-09] MEDS: LACTOBACILLUS ACIDOPHILUS TAB PO SCH ×3 (08:36→17:17)
[2018-03-09] MEDS ORDERED: diphenhydrAMINE HCL 50 MG CAP PO ONE (13:15)
--- NOTE | 2018-03-09 15:49 | HHI.PR ---
Subjective Remarks Patient reported itching and he thinks it is because of the cefepime No feeling of fever, but he had 100.4 documented yesterday Plan for VATS tomorrow Objective Vitals Vital Signs Date Time Temp Pulse Resp B/P (MAP) Pulse Ox O2 Delivery O2 Flow Rate FiO2 03/09/18 12:00 99.6 79 20 106/65 (79) 95 03/09/18 12:00 77 03/09/18 08:00 99.1 72 20 113/61 (78) 97 03/09/18 08:00 72 03/09/18 08:00 Room Air 03/09/18 04:28 99.8 84 17 116/64 (81) 95 03/09/18 03:44 78 03/09/18 00:38 99.1 74 17 116/69 (85) 95 03/08/18 23:45 74 03/08/18 21:32 99.0 68 17 112/66 (81) 96 03/08/18 21:25 21 03/08/18 20:15 Room Air 03/08/18 20:08 73 03/08/18 16:20 73 03/08/18 16:01 100.4 79 20 126/62 (83) 97 I/O 03/08/18 03/08/18 03/08/18 03/09/18 03/09/18 03/09/18 07:00 15:00 23:00 07:00 15:00 23:00 Intake Total 1200 ml 720 ml 240 ml Output Total 1000 ml 725 ml 1345 ml 500 ml Balance 200 ml 720 ml -725 ml -1345 ml -260 ml Intake Oral 1200 ml 720 ml 240 ml Output Urine Total 1000 ml 725 ml 1275 ml 500 ml Chest Tube Drainage Total 70 ml # Voids 2 # Bowel Movements 0 1 Result Diagram: 03/07/18 0538 03/09/18 0550 Objective Remarks GENERAL: This is a well-nourished, well-developed patient, in no apparent distress. SKIN: No rashes, warm and dry HEAD: Atraumatic. Normocephalic. EYES: Pupils equal round and reactive. Extraocular motions intact. No scleral icterus. ENT: Nose without bleeding, or drainage, Airway patent. NECK: Trachea midline. Supple CARDIOVASCULAR: Regular rate and rhythm without murmurs, gallops, or rubs. Chest tube in place RESPIRATORY: Left chest crepitus GASTROINTESTINAL: Abdomen soft, non-tender, nondistended. Positive bowel sounds MUSCULOSKELETAL: Extremities without clubbing, cyanosis, or edema. Pedal pulses appreciated NEUROLOGICAL: Awake and alert. Moves all extremity. Normal speech.no focal neurological deficit Procedures Chest tube drainage left pleural effusion A/P Problem List: (1) Sepsis ICD Code: A41.9 - Sepsis, unspecified organism Status: Acute (2) Pneumonia ICD Code: J18.9 - Pneumonia, unspecified organism Status: Acute (3) Reactive airway disease ICD Code: J45.909 - Unspecified asthma, uncomplicated (4) Pleural effusion, left ICD Code: J90 - Pleural effusion, not elsewhere classified Assessment and Plan Mr. 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 Chest x-ray showed left base consolidation consistent with pneumonia. The patient was admitted to the hospitalist service for medical treatment. 03/04: WBC dropped to 13 K, continue current care, chest tube management, Repeat CBC BMP in a.m., monitor temperature, blood pressure 03/05: wbc back to ml level, continue CT management 03/06: New spiking fever 101.3 today, patient is on Zosyn, will monitor CBC will discuss with ID 03/07: No fever since last night, 99.4, appreciate ID recommendation I discussed with Dr. ingram, she changed Zosyn, and recommended pulmonary and reconsult for vascular surgery, indeed patient may need VATS , or decortication, monitor CBC and temperature 03/08: Still running fever occasionally, appreciate CVS and ID follow-up plan for VATS in on Friday 03/09: 100.4 fever yesterday at 1600, itching with abdominal cramping, ordered Benadryl which helped, plan for VATS in a.m. 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 Parapneumonic effusion Chest x-ray and CT of the chest reviewed by me shows left lower lung consolidation and a mild to moderate left pleural effusion. Still with fever and worsening leukocytosis continue IV vancomycin and IV Zosyn and follow-up sputum AFB and fungal cultures. Repeat sputum and blood cultures. Fungal smear with rare budding yeast cell, AFB stain negative, MTB PCR negative and sputum culture with normal maggie. Nebulizations and oxygen as needed. S/p steroids. CTA of the abdomen pelvis with loculated effusion ? empyema consulted CTS status post CT guided chest tube by IR drainage in the last 3 hours 100 ml drained in the last 3 hours f/u studies. Repeat chest x- ray with enlarging air-containing cavity recommended repeat chest CT. Incentive spirometry Atypical chest pain troponin negative 3. Chest pain resolved likely secondary to COPD exacerbation and pneumonia. Diarrhea likely secondary to antibiotics. C. difficile negative. Resolved. Lactinex. Resolved discontinued normal saline. Continue to monitor BMP. Acute kidney injury Suspect prerenal azotemia from dehydration due to sepsis secondary to pneumonia and COPD exacerbation. Resolving discontinue IV fluids and continue to monitor. Complaining of difficulty voiding check urinalysis Mild transaminitis in patient with history of liver failure This is resolved with negative hepatitis panel. Likely secondary to sepsis Normocytic anemia. Patient complaining of dark stool. Continue to monitor CBC. Transfuse to keep hemoglobin at least 8. Guaiac stools (negative 1) DVT propylaxis - Heparin 5000 units subcu every 8 hours Discharge Planning Patient with cavitary pneumonia, COPD exacerbation, left pleural effusion s/p CT drainage on broad-spectrum IV antibiotics, ID consulted. Not ready for discharge Problem Qualifiers (1) Sepsis: Qualified Codes: A41.9 - Sepsis, unspecified organism (2) Pneumonia: Qualified Codes: J18.1 - Lobar pneumonia, unspecified organism Selma Pichardo MD Mar 09, 2018 15:49
--- NOTE | 2018-03-09 20:31 | HHI.PR ---
Subjective Remarks 52 YOAA male, from correctional facility with Pn, Loculated pl eff has Left Chest not draining CT Loculated hydropneumothorax and trapped lung no fever Has irritaitn cough Objective Vital Signs Vital Signs Date Time Temp Pulse Resp B/P (MAP) Pulse Ox O2 Delivery O2 Flow Rate FiO2 03/09/18 16:04 99.6 78 20 118/69 (85) 97 03/09/18 12:00 99.6 79 20 106/65 (79) 95 03/09/18 12:00 77 03/09/18 08:00 99.1 72 20 113/61 (78) 97 03/09/18 08:00 72 03/09/18 08:00 Room Air 03/09/18 04:28 99.8 84 17 116/64 (81) 95 03/09/18 03:44 78 03/09/18 00:38 99.1 74 17 116/69 (85) 95 03/08/18 23:45 74 03/08/18 21:32 99.0 68 17 112/66 (81) 96 03/08/18 21:25 21 I/O 03/08/18 03/08/18 03/08/18 03/09/18 03/09/18 03/09/18 07:00 15:00 23:00 07:00 15:00 23:00 Intake Total 1200 ml 720 ml 240 ml Output Total 1000 ml 725 ml 1345 ml 500 ml Balance 200 ml 720 ml -725 ml -1345 ml -260 ml Intake Oral 1200 ml 720 ml 240 ml Output Urine Total 1000 ml 725 ml 1275 ml 500 ml Chest Tube Drainage Total 70 ml # Voids 2 # Bowel Movements 0 1 Result Diagram: 03/07/18 0538 03/09/18 0550 Objective Remarks GENERAL: WBWN AA male, NAD SKIN: Warm and dry. HEAD: Normocephalic. EYES: No scleral icterus. No injection or drainage. NECK: Supple, trachea midline. No JVD or lymphadenopathy. CARDIOVASCULAR: Regular rate and rhythm without murmurs, gallops, or rubs. RESPIRATORY: Breath sounds equal bilaterally. No accessory muscle use. Left chest tube in place. GASTROINTESTINAL: Abdomen soft, non-tender, nondistended. MUSCULOSKELETAL: No cyanosis, or edema. BACK: Nontender without obvious deformity. No CVA tenderness. A/P Assessment and Plan IMPRESSION: 1. Left lung loculated pleural effusion, with a trapped lung, left hydropneumothorax. 2. Hypertension PLAN: Continue Abx per ID Aerosol nebs left chest tube to suction VATS planned for Wed Tessalon 200 mg tid Des Jacobs MD Mar 09, 2018 20:31
[2018-03-09] MEDS: PRAVASTATIN SOD 80 MG TAB PO SCH (20:39)
[2018-03-10] VITALS (10 sets, daily range): BP systolic 102–135; BP diastolic 57–80; PULSE 73–93; RESP 16–18; TEMP 98.3–98.8; O2SAT 95–97
[2018-03-10] MEDS: CEFEPIME INJ 2,000 MG in SODIUM CHLORIDE 0.9% INJ 100 ML IV SCH ×3 (04:03→21:26)
[2018-03-10] MEDS: metroNIDAZOLE 500 MG TAB PO SCH ×3 (05:33→21:25)
[2018-03-10] MEDS: HEPARIN SODIUM - SQ 10,000 UNITS/ML VIAL SQ SCH ×3 (05:34→21:26)
[2018-03-10] MEDS ORDERED: BUPIVACAINE LIPOSO PF 1.3% INJ 20 ML, DEXAMETHASONE INJ 4 MG, MORPHINE INJ 8 MG in SODI... IRRIGATION ONE (08:00)
[2018-03-10] MEDS: LACTOBACILLUS ACIDOPHILUS TAB PO SCH ×3 (09:00→17:35)
[2018-03-10] MEDS: FERROUS SULFATE 325 MG (65 MG ELEMENTAL IRON) TAB PO SCH ×2 (09:00→21:25)
[2018-03-10] MEDS ORDERED: PROPOFOL 200 MG/20 ML AMP IV ONE (12:00)
[2018-03-10] MEDS ORDERED: ceFAZolin INJ 1,000 MG VIAL IV ONE (12:00)
[2018-03-10] MEDS ORDERED: LIDOCAINE HCL 1% PF 5 ML SYRINGE OTHER ONE (12:00)
[2018-03-10] MEDS ORDERED: PHENYLEPH/NS 1000 MCG/10 ML SYR IV ONE (12:00)
[2018-03-10] MEDS ORDERED: NEOSTIGMINE 5 MG/5 ML SYRINGE IV PUSH ONE (12:00)
[2018-03-10] MEDS ORDERED: GLYCOPYRROLATE 1 MG/5 ML SYRINGE IV PUSH ONE (12:00)
[2018-03-10] MEDS ORDERED: NORMOSOL R INJ 2,000 ML IV ONE (12:00)
[2018-03-10] MEDS ORDERED: SODIUM CHLORID 0.9% 500 ML INJ 500 ML IV ONE (12:00)
[2018-03-10] MEDS ORDERED: ePHEDrine/NS 25 MG/5 ML SYRINGE IV ONE (12:00)
[2018-03-10] MEDS ORDERED: ROCURONIUM INJ 50 MG/5 ML SYRINGE IV PUSH ONE (12:00)
--- NOTE | 2018-03-10 12:11 | PD.OP ---
cc: Kunal Luke MD Operative Report Date of Surgery: Mar 10, 2018 Preoperative Diagnosis: Postoperative Diagnosis: Procedure: 1. Left Muscle-sparing Posterolateral Thoracotomy 2. Decortication and Drainage of Intrathoracic Abscesses 3. Intercostal Nerve Block Surgeon: Kunal Luke Collar Turner Operator(s): Adonis Abdi Operation and Findings: PREOPERATIVE DIAGNOSIS 1. Left Organized Empyema 2. Loculated Abscess Cavities 3. Pneumonia 4. Necrotizing Abscess POSTOPERATIVE DIAGNOSIS same PROCEDURES 1. Left Muscle-sparing Posterolateral Thoracotomy 2. Decortication and Drainage of Intrathoracic Abscesses 3. Intercostal Nerve Block SURGEON Kunal Luke MD [employer] CARLEE Peraza ANESTHESIA General endotracheal. COMPUTER SYSTEMS SOFTWARE ENGINEER PURINMA Richmond MD OPERATIVE TIME Please see record. COMPLICATIONS None. INDICATION FOR PROCEDURE The patient is a 52 yo gentleman with left empyema presenting for surgical correction of above pathology. DESCRIPTION OF PROCEDURE The patient was brought to the operating suite and placed in supine position. Following satisfactory induction of general single-lumen endotracheal anesthesia , the patient was placed in the right lateral decubitus position. The left chest and surrounding area was then prepped and draped in the usual sterile fashion. A standard muscle-sparing posterolateral thoracotomy was performed and the serratus anterior muscle spared. The pleural space was entered. Exploration of the chest revealed a stage IV Empyema with a thick peel encasing the lung as well as the parietal pleura. The peel was very densely adherent to the visceral pleura and the underlying lung was very consolidated. Additional loculated abscess cavities were also identified within the thoracic cavity. All loculations and fluid pockets were evacuated. Additional subpulmonic calcified abscess pocket was identified which was necrotic and eroding into the base of the upper lobe. This was drained as well. Circumferential decortication was performed and specimen sent for microbiological analysis. The pleural space was copiously irrigated with antibiotic solution. At this point the closure was undertaken. Two 32-Serbian chest tubes were placed. Intercostal nerve block was performed at the level of the incision and 3 rib spaces above and below using Exparel with Decadron solution. The pericostal space was approximated with interrupted #1 Vicryl sutures in a pericostal fashion. The serratus and Latissimus dorsi were closed with running 0-Vicryl and the remaining wounds closed with 3-0, and 4-0 Monocryl. The patient tolerated the procedure well and postoperatively went to the PACU in stable condition. Kunal Luke MD Mar 10, 2018 12:11
[2018-03-10] MEDS ORDERED: ONDANSETRON HCL 4 MG/2 ML VIAL IV PUSH PRN (12:15)
[2018-03-10] MEDS ORDERED: RESP: ALBUTEROL 2.5 MG/3 ML NEB (PRN) NEB (12:15)
[2018-03-10] MEDS ORDERED: Post-op Orders (for Pharmacy) OTHER ONE (12:15)
[2018-03-10] MEDS ORDERED: DO NOT ADM ANY ANTICOAGULANT DRUGS PRN (12:26)
[2018-03-10] MEDS ORDERED: MIDAZOLAM HCL 2 MG/2 ML VIAL ONE (12:43)
[2018-03-10] MEDS ORDERED: SUGAMMADEX SODIUM 200 MG/2 ML VIAL IV PUSH ONE (12:43)
[2018-03-10] MEDS ORDERED: *MEPERIDINE 25 MG INJ VIAL PERIprocedural Use ONLY ONE (12:48)
[2018-03-10] MEDS ORDERED: *morphine SULFATE 4 MG/ML PERIprocedure ONLY ONE ×2 (12:56→13:05)
--- NOTE | 2018-03-10 13:40 | RADRPT ---
EXAM DATE/TIME: 03/10/2018 13:45 [facility] COMPARISON: CHEST SINGLE AP, March 07, 2018, 15:20. INDICATIONS : Status post left Thoracotomy. MEDICAL HISTORY : Cardiovascular disease. Hypertension SURGICAL HISTORY : None. ENCOUNTER: Initial ACUITY: 2 weeks PAIN SCORE: 8/10 LOCATION: Left chest FINDINGS: [address] holding the left without free pneumothorax. There is some pleural thickening persisting in the left base with small loculated air collection. Right lung clear. The heart and pulmonary vascularity are normal. CONCLUSION: [address] on the left with persistent peripheral changes left base, improved in the inte rval. Omar Aguilar MD FACR on March 10, 2018 at 13:36 Board Certified Radiologist. This report was verified electronically.
[2018-03-10] MEDS: SODIUM CHLORIDE 0.9% FLUSH 10 ML FLUSH IV FLUSH SCH ×2 (14:16→21:27)
[2018-03-10] MEDS: KETOROLAC TROMETHAMINE 30 MG/ML (IVP) VIAL IV PUSH SCH ×2 (14:17→18:22)
[2018-03-10] MEDS: ACETAMINOPHEN 1000 MG/100 ML 100 ML IV SCH ×2 (14:17→18:21)
--- NOTE | 2018-03-10 16:30 | HHI.PR ---
Subjective Remarks Doing well this morning going for VATS surgery today Objective Vitals Vital Signs Date Time Temp Pulse Resp B/P (MAP) Pulse Ox O2 Delivery O2 Flow Rate FiO2 03/10/18 12:26 98.1 86 16 147/66 (93) 97 Nasal Cannula 4 03/10/18 08:00 98.3 79 17 118/75 (89) 96 03/10/18 08:00 75 03/10/18 04:23 73 03/10/18 03:59 98.8 76 16 109/68 (82) 96 03/10/18 00:31 73 03/09/18 23:21 99.9 80 16 120/75 (90) 96 03/09/18 20:34 99.4 98 18 124/82 (96) 97 03/09/18 19:52 79 03/09/18 19:45 Room Air I/O 03/09/18 03/09/18 03/09/18 03/10/18 03/10/18 03/10/18 07:00 15:00 23:00 07:00 15:00 23:00 Intake Total 240 ml 360 ml Output Total 1345 ml 500 ml 1950 ml Balance -1345 ml -260 ml -1590 ml Intake Oral 240 ml 360 ml Output Urine Total 1275 ml 500 ml 1950 ml Chest Tube Drainage Total 70 ml # Bowel Movements 1 0 Result Diagram: 03/07/18 0538 03/09/18 0550 Objective Remarks GENERAL: This is a well-nourished, well-developed patient, in no apparent distress. SKIN: No rashes, warm and dry HEAD: Atraumatic. Normocephalic. EYES: Pupils equal round and reactive. Extraocular motions intact. No scleral icterus. ENT: Nose without bleeding, or drainage, Airway patent. NECK: Trachea midline. Supple CARDIOVASCULAR: Regular rate and rhythm without murmurs, gallops, or rubs. Chest tube in place RESPIRATORY: Left chest crepitus GASTROINTESTINAL: Abdomen soft, non-tender, nondistended. Positive bowel sounds MUSCULOSKELETAL: Extremities without clubbing, cyanosis, or edema. Pedal pulses appreciated NEUROLOGICAL: Awake and alert. Moves all extremity. Normal speech.no focal neurological deficit Procedures Chest tube drainage left pleural effusion A/P Problem List: (1) Sepsis ICD Code: A41.9 - Sepsis, unspecified organism Status: Acute (2) Pneumonia ICD Code: J18.9 - Pneumonia, unspecified organism Status: Acute (3) Reactive airway disease ICD Code: J45.909 - Unspecified asthma, uncomplicated (4) Pleural effusion, left ICD Code: J90 - Pleural effusion, not elsewhere classified Assessment and Plan Mr. 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 Chest x-ray showed left base consolidation consistent with pneumonia. The patient was admitted to the hospitalist service for medical treatment. 03/10: Patient is going for VATS surgery today, ID following continue IV antibiotic, pulmonary following, CBC BMP in a.m. 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 Parapneumonic effusion Chest x-ray and CT of the chest reviewed by me shows left lower lung consolidation and a mild to moderate left pleural effusion. Relapsing fever, leukocytosis continue IV antibiotic per ID. Repeat sputum and blood cultures. Fungal smear with rare budding yeast cell, AFB stain negative, MTB PCR negative and sputum culture with normal maggie. Nebulizations and oxygen as needed. S/p steroids. CTA of the abdomen pelvis with loculated effusion ? empyema consulted CTS status post CT guided chest tube by IR drainage in the last 3 hours 100 ml drained in the last 3 hours f/u studies. Repeat chest x-ray with enlarging air-containing cavity recommended repeat chest CT. Incentive spirometry Atypical chest pain troponin negative 3. Chest pain resolved likely secondary to COPD exacerbation and pneumonia. Diarrhea likely secondary to antibiotics. C. difficile negative. Resolved. Lactinex. Resolved discontinued normal saline. Continue to monitor BMP. Acute kidney injury Suspect prerenal azotemia from dehydration due to sepsis secondary to pneumonia and COPD exacerbation. Resolving discontinue IV fluids and continue to monitor. Complaining of difficulty voiding check urinalysis Mild transaminitis in patient with history of liver failure This is resolved with negative hepatitis panel. Likely secondary to sepsis Normocytic anemia. Patient complaining of dark stool. Continue to monitor CBC. Transfuse to keep hemoglobin at least 8. Guaiac stools (negative 1) DVT propylaxis - Heparin 5000 units subcu every 8 hours Discharge Planning Patient with cavitary pneumonia, COPD exacerbation, left pleural effusion s/p CT drainage on broad-spectrum IV antibiotics, ID consulted. Not ready for discharge Problem Qualifiers (1) Sepsis: Qualified Codes: A41.9 - Sepsis, unspecified organism (2) Pneumonia: Qualified Codes: J18.1 - Lobar pneumonia, unspecified organism Selam Pichardo MD Mar 10, 2018 16:30
[2018-03-10] MEDS: RESP: ALBUTEROL 2.5 MG/IPRATROPIUM 0.5 MG NEB (PRN) NEB (17:00)
[2018-03-10] MEDS: RESP: ALBUTEROL 2.5 MG/3 ML NEB (SCH) NEB ×2 (17:01→21:44)
[2018-03-10] MEDS: ACETAMINOPHEN/HYDROcodone 325 MG/7.5 MG TAB PO PRN (19:38)
--- NOTE | 2018-03-10 20:43 | HHI.PR ---
Subjective Remarks 52 YOAA male, from correctional facility with Pn, Loculated pl eff has Left Chest not draining CT Loculated hydropneumothorax and trapped lung no fever Had Thoracotomy, decortication Doing well Objective Vital Signs Vital Signs Date Time Temp Pulse Resp B/P (MAP) Pulse Ox O2 Delivery O2 Flow Rate FiO2 03/10/18 20:00 98.4 80 18 102/57 (72) 96 03/10/18 17:01 95 21 03/10/18 16:00 76 03/10/18 16:00 98.7 93 17 135/80 (98) 97 03/10/18 13:32 97.8 88 16 142/70 (94) 98 Nasal Cannula 2 03/10/18 12:26 98.1 86 16 147/66 (93) 97 Nasal Cannula 4 03/10/18 08:00 98.3 79 17 118/75 (89) 96 03/10/18 08:00 75 03/10/18 08:00 Room Air 2.00 21 03/10/18 04:23 73 03/10/18 03:59 98.8 76 16 109/68 (82) 96 03/10/18 00:31 73 03/09/18 23:21 99.9 80 16 120/75 (90) 96 I/O 03/09/18 03/09/18 03/09/18 03/10/18 03/10/18 03/10/18 07:00 15:00 23:00 07:00 15:00 23:00 Intake Total 240 ml 360 ml 300 ml Output Total 1345 ml 500 ml 1950 ml 158 ml Balance -1345 ml -260 ml -1590 ml 142 ml Intake Oral 240 ml 360 ml IV Total 300 ml Output Urine Total 1275 ml 500 ml 1950 ml Chest Tube Drainage Total 70 ml 158 ml # Bowel Movements 1 0 Result Diagram: 03/07/18 0538 03/09/18 0550 Objective Remarks GENERAL: WBWN AA male, NAD SKIN: Warm and dry. HEAD: Normocephalic. EYES: No scleral icterus. No injection or drainage. NECK: Supple, trachea midline. No JVD or lymphadenopathy. CARDIOVASCULAR: Regular rate and rhythm without murmurs, gallops, or rubs. RESPIRATORY: Breath sounds equal bilaterally. No accessory muscle use. Left chest tube in place. GASTROINTESTINAL: Abdomen soft, non-tender, nondistended. MUSCULOSKELETAL: No cyanosis, or edema. BACK: Nontender without obvious deformity. No CVA tenderness. A/P Assessment and Plan IMPRESSION: 1. Left lung loculated pleural effusion, with a trapped lung, left hydropneumothorax. 2. Hypertension PLAN: Continue Abx per ID Aerosol nebs left chest tube to suction Tessalon 200 mg tid Des Jacobs MD Mar 10, 2018 20:43
[2018-03-10] MEDS: DOCUSATE CALCIUM 240 MG CAP PO SCH (21:00)
[2018-03-10] MEDS: PRAVASTATIN SOD 80 MG TAB PO SCH (21:25)
[2018-03-11] VITALS (8 sets, daily range): BP systolic 106–117; BP diastolic 55–69; PULSE 71–99; RESP 16–18; TEMP 98.3–99.7; O2SAT 95–97
[2018-03-11] MEDS: ACETAMINOPHEN 1000 MG/100 ML 100 ML IV SCH ×2 (00:24→06:12)
[2018-03-11] MEDS: KETOROLAC TROMETHAMINE 30 MG/ML (IVP) VIAL IV PUSH SCH ×2 (00:24→06:11)
[2018-03-11] MEDS: RESP: ALBUTEROL 2.5 MG/3 ML NEB (SCH) NEB ×4 (02:46→21:26)
[2018-03-11] MEDS: CEFEPIME INJ 2,000 MG in SODIUM CHLORIDE 0.9% INJ 100 ML IV SCH ×3 (03:12→19:57)
[2018-03-11] MEDS: ACETAMINOPHEN/HYDROcodone 325 MG/7.5 MG TAB PO PRN ×4 (03:18→17:57)
[2018-03-11] MEDS: HEPARIN SODIUM - SQ 10,000 UNITS/ML VIAL SQ SCH ×3 (06:10→22:52)
[2018-03-11] MEDS: metroNIDAZOLE 500 MG TAB PO SCH ×3 (06:12→22:52)
--- NOTE | 2018-03-11 06:12 | RADRPT ---
EXAM DATE/TIME: 03/11/2018 04:56 [facility] COMPARISON: CHEST SINGLE AP, March 10, 2018, 13:45. INDICATIONS : Shortness of breath, evaluate left chest tube MEDICAL HISTORY : Cardiovascular disease. Hypertension SURGICAL HISTORY : None. ENCOUNTER: Subsequent ACUITY: 1 day PAIN SCORE: 8/10 LOCATION: Left chest FINDINGS: A single view of the chest demonstrates left-sided chest tubes. Small left apical and basilar pneumot horax. Pleural-parenchymal density left lung base. Osseous structures are intact. CONCLUSION: Stable pleural-parenchymal density. Small pneumothorax . Sheldon Max MD on March 11, 2018 at 6:10 Board Certified Radiologist. This report was verified electronically.
[2018-03-11 09:09] LABS: AUTOMATED NEUTROPHIL # 6.4 TH/MM3 (1.8-7.7); BASOPHIL % 0.5 % (0.0-2.0); HEMATOCRIT 27.2 % (39.0-51.0); HEMOGLOBIN 9.2 GM/DL (13.0-17.0); LYMPH % 15.5 % (9.0-44.0); LYMPHOCYTE # 1.4 TH/MM3 (1.0-4.8); MEAN CELL VOLUME 91.6 FL (80.0-100.0); MEAN CORPUSCULAR HGB CONC 33.9 % (32.0-36.0); MEAN PLATELET VOLUME 7.4 FL (7.0-11.0); MONO % 12.7 % (0.0-8.0); MONOCYTE # 1.1 TH/MM3 (0-0.9); NEUT % 71.3 % (16.0-70.0); PLATELET COUNT 360 TH/MM3 (150-450); RED BLOOD COUNT 2.97 MIL/MM3 (4.50-5.90); RED CELL DISTRIBUTION WIDTH 14.3 % (11.6-17.2)
[2018-03-11] MEDS: LACTOBACILLUS ACIDOPHILUS TAB PO SCH ×3 (09:18→17:55)
[2018-03-11] MEDS: FERROUS SULFATE 325 MG (65 MG ELEMENTAL IRON) TAB PO SCH ×2 (09:18→19:56)
[2018-03-11] MEDS: SODIUM CHLORIDE 0.9% FLUSH 10 ML FLUSH IV FLUSH SCH ×2 (09:23→19:56)
[2018-03-11 09:51] LABS: BICARBONATE 24.5 MEQ/L (21.0-32.0); CALCIUM 8.8 MG/DL (8.5-10.1); CREATININE 1.03 MG/DL (0.60-1.30)
--- NOTE | 2018-03-11 11:00 | HHI.PR ---
Subjective Remarks Patient reports he is feeling better. Breathing more comfortable. Objective Vitals Vital Signs Date Time Temp Pulse Resp B/P (MAP) Pulse Ox O2 Delivery O2 Flow Rate FiO2 03/11/18 08:00 99.1 83 16 108/58 (75) 96 03/11/18 08:00 85 03/11/18 08:00 Room Air 2.00 21 03/11/18 04:00 98.9 88 18 106/55 (72) 96 03/11/18 04:00 Room Air 03/11/18 03:53 93 03/11/18 00:00 Room Air 03/11/18 00:00 99.2 87 17 117/56 (76) 96 03/10/18 23:47 91 03/10/18 21:44 96 21 03/10/18 20:00 98.4 80 18 102/57 (72) 96 03/10/18 20:00 Room Air 03/10/18 20:00 79 03/10/18 19:00 76 03/10/18 17:01 95 21 03/10/18 16:00 76 03/10/18 16:00 98.7 93 17 135/80 (98) 97 03/10/18 13:32 97.8 88 16 142/70 (94) 98 Nasal Cannula 2 03/10/18 12:26 98.1 86 16 147/66 (93) 97 Nasal Cannula 4 I/O 03/10/18 03/10/18 03/10/18 03/11/18 03/11/18 03/11/18 07:00 15:00 23:00 07:00 15:00 23:00 Intake Total 360 ml 400 ml 862 ml Output Total 1950 ml 158 ml 460 ml Balance -1590 ml 242 ml 402 ml Intake Oral 360 ml 462 ml IV Total 400 ml 400 ml Output Urine Total 1950 ml 350 ml Chest Tube Drainage Total 158 ml 110 ml # Bowel Movements 0 0 Result Diagram: 03/11/18 0751 03/11/18 0751 Objective Remarks GENERAL: This is a well-nourished, well-developed patient, in no apparent distress. CARDIOVASCULAR: Normal rate and regular rhythm without murmurs, gallops, or rubs. RESPIRATORY: Chest tube on the left. Posterior lateral left chest incision wound appear clean and dry. Diminished breath sounds in the left base otherwise clear to auscultation bilaterally. GASTROINTESTINAL: Abdomen soft, non-tender, non-distended. Normal active bowel sounds MUSCULOSKELETAL: Extremities without cyanosis, or edema. NEURO: Alert & Oriented x4 to person, place, time, situation. Moves all ext x4 PSYCH: Appropriate mood and affect. Procedures Chest tube drainage left pleural effusion A/P Problem List: (1) Sepsis ICD Code: A41.9 - Sepsis, unspecified organism Status: Acute (2) Pneumonia ICD Code: J18.9 - Pneumonia, unspecified organism Status: Acute (3) Reactive airway disease ICD Code: J45.909 - Unspecified asthma, uncomplicated (4) Pleural effusion, left ICD Code: J90 - Pleural effusion, not elsewhere classified Assessment and Plan Mr. 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 Chest x-ray showed left base consolidation consistent with pneumonia. The patient was admitted to the hospitalist service for medical treatment. 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 Parapneumonic effusion Chest x-ray and CT of the chest reviewed shows left lower lung consolidation and a mild to moderate left pleural effusion. Relapsing fever, leukocytosis continue IV antibiotic per ID. Repeat sputum and blood cultures. Fungal smear with rare budding yeast cell, AFB stain negative, MTB PCR negative and sputum culture with normal maggie. Nebulizations and oxygen as needed. S/p steroids. S/P VATS and evacuation of abscess on 03/10/18. Chest tube in place. Further plans per CT surgery. Atypical chest pain troponin negative 3. Chest pain resolved likely secondary to COPD exacerbation and pneumonia. Diarrhea likely secondary to antibiotics. C. difficile negative. Resolved. Lactinex. Resolved discontinued normal saline. Continue to monitor BMP. Acute kidney injury Suspect prerenal azotemia from dehydration due to sepsis secondary to pneumonia and COPD exacerbation. Resolved with IV fluid. Mild transaminitis in patient with history of liver failure This is resolved with negative hepatitis panel. Likely secondary to sepsis Normocytic anemia. Patient complaining of dark stool. Continue to monitor CBC. Transfuse to keep hemoglobin at least 8. Guaiac stools (negative 1) DVT propylaxis - Heparin 5000 units subcu every 8 hours Discharge Planning Patient with cavitary pneumonia, loculated abscess. COPD exacerbation, left pleural effusion s/p CT drainage and VATS for evacuation of necrotizing abscess on broad-spectrum IV antibiotics, ID following. Not ready for discharge Problem Qualifiers (1) Sepsis: Qualified Codes: A41.9 - Sepsis, unspecified organism (2) Pneumonia: Qualified Codes: J18.1 - Lobar pneumonia, unspecified organism Sofía Guerrero MD Mar 11, 2018 11:00
--- NOTE | 2018-03-11 12:50 | HHI.IDPN ---
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 Vital Signs Date Time Temp Pulse Resp B/P (MAP) Pulse Ox O2 Delivery O2 Flow Rate FiO2 03/11/18 12:00 82 03/11/18 08:00 99.1 83 16 108/58 (75) 96 03/11/18 08:00 85 03/11/18 08:00 Room Air 2.00 21 03/11/18 04:00 98.9 88 18 106/55 (72) 96 03/11/18 04:00 Room Air 03/11/18 03:53 93 03/11/18 00:00 Room Air 03/11/18 00:00 99.2 87 17 117/56 (76) 96 03/10/18 23:47 91 03/10/18 21:44 96 21 03/10/18 20:00 98.4 80 18 102/57 (72) 96 03/10/18 20:00 Room Air 03/10/18 20:00 79 03/10/18 19:00 76 03/10/18 17:01 95 21 03/10/18 16:00 76 03/10/18 16:00 98.7 93 17 135/80 (98) 97 03/10/18 13:32 97.8 88 16 142/70 (94) 98 Nasal Cannula 2 . Laboratory Tests Test 03/11/18 07:51 White Blood Count 9.0 TH/MM3 Red Blood Count 2.97 MIL/MM3 Hemoglobin 9.2 GM/DL Hematocrit 27.2 % Mean Corpuscular Volume 91.6 FL Mean Corpuscular Hemoglobin 31.0 PG Mean Corpuscular Hemoglobin Concent 33.9 % Red Cell Distribution Width 14.3 % Platelet Count 360 TH/MM3 Mean Platelet Volume 7.4 FL Neutrophils (%) (Auto) 71.3 % Lymphocytes (%) (Auto) 15.5 % Monocytes (%) (Auto) 12.7 % Eosinophils (%) (Auto) 0.0 % Basophils (%) (Auto) 0.5 % Neutrophils # (Auto) 6.4 TH/MM3 Lymphocytes # (Auto) 1.4 TH/MM3 Monocytes # (Auto) 1.1 TH/MM3 Eosinophils # (Auto) 0.0 TH/MM3 Basophils # (Auto) 0.0 TH/MM3 CBC Comment DIFF FINAL Differential Comment Laboratory Tests Test 03/11/18 07:51 Blood Urea Nitrogen 16 MG/DL Creatinine 1.03 MG/DL Random Glucose 109 MG/DL Calcium Level 8.8 MG/DL Sodium Level 130 MEQ/L Potassium Level 3.8 MEQ/L Chloride Level 97 MEQ/L Carbon Dioxide Level 24.5 MEQ/L Anion Gap 9 MEQ/L Estimat Glomerular Filtration Rate 92 ML/MIN Microbiology Date/Time Source Procedure Growth Status 03/10/18 10:44 Fluid Pleural Fluid Acid Fast Stain Pending Worksheet 03/10/18 10:44 Fluid Pleural Fluid Mycobacterial Culture Pending Worksheet 03/10/18 10:44 Fluid Pleural Fluid Gram Stain - Final Resulted 03/10/18 10:44 Fluid Pleural Fluid Body Fluid Culture Pending Resulted 03/10/18 10:44 Fluid Pleural Fluid Fungal Smear - Final NO FUNGAL ELEMENTS SEEN. Resulted 03/10/18 10:44 Fluid Pleural Fluid Fungal Culture Pending Resulted 03/10/18 10:44 Wound Other Gram Stain - Final Resulted 03/10/18 10:44 Wound Other Wound Culture Pending Resulted 03/10/18 10:44 Wound Other Fungal Smear - Final NO FUNGAL ELEMENTS SEEN. Resulted 03/10/18 10:44 Wound Other Fungal Culture Pending Resulted 03/10/18 10:44 Wound Other Acid Fast Stain Pending Received 03/10/18 10:44 Wound Other Mycobacterial Culture Pending Received Imaging Last Impressions Chest X-Ray 03/07/18 0000 Signed Impressions: Service Date/Time: Wednesday, March 07, 2018 15:20 - CONCLUSION: 1. Interval improvement in loculated left hydropneumothorax and left basilar lung consolidation since March 03. Balaji Stapleton MD Chest CT 03/03/18 0000 Signed Impressions: Service Date/Time: Saturday, March 03, 2018 15:31 - CONCLUSION: Hydropneumothorax at the left lung base with diffuse pleural thickening and consolidation in the left lower lobe. There is thick fluid with small air pockets in the fluid throughout the left lung base. Findings would be most consistent with empyema. The fluid at the left lung base has been drained however, the lung has not reinflated. Bhavin Aguilar MD Thoracentesis 03/01/18 0000 Signed Impressions: Service Date/Time: Thursday, March 01, 2018 14:31 - CONCLUSION: Uncomplicated CT-guided thoracentesis and chest tube placement as above. Delroy Deleon MD Abdomen/Pelvis CT 02/26/18 0000 Signed Impressions: Service Date/Time: Tuesday, February 27, 2018 14:19 - CONCLUSION: 1. Multiloculated air and fluid collection in the left hemithorax similar to recent chest CT concerning for a left sided empyema with adjacent lung consolidation and atelectasis. 2. Mild anasarca. Trace free fluid. No obstruction or free air. Balaji Stapleton MD Chest Ultrasound 02/25/18 0000 Signed Impressions: Service Date/Time: January 10:42 - CONCLUSION: Left pleural effusion is too small and loculated for ultrasound-guided thoracentesis. CT guided thoracentesis is recommended. Ramin Angulo MD Physical Exam CONSTITUTIONAL/GENERAL: This is a WDWN male patient, in no apparent distress. Awake and alert. SKIN: Warm and dry. No rash appreciated. HEAD: Atraumatic, normocephalic EYES: EOMI, No scleral icterus, No injection or drainage. ENT: Nose without any bleeding or purulent drainage. MMM. NECK: Trachea midline. CARDIOVASCULAR: Regular rate and rhythm without murmurs, gallops, or rubs. RESPIRATORY/CHEST: extensive rhonchi, crackels and few wheesing on the L CT in place on left with serosang d/c GASTROINTESTINAL: Abdomen soft, nondistended. MUSCULOSKELETAL: Extremities without clubbing, cyanosis, or edema. LYMPHATICS: No palpable cervical or supraclavicular adenopathy. NEUROLOGICAL: Awake and alert. Motor and sensory grossly within normal limits. Normal speech. PSYCHIATRIC: Appropriate mood and affect. Normal insight and judgement. Assessment & Plan Remarks 1. Left Organized Empyema 2. Loculated Abscess, clx negative 3. Pneumonia 4. Necrotizing Abscess s/p drainage - cont zosyn fu clx - anticipate transition to po abx once he cleared for dc Britney Romero MD Mar 11, 2018 12:50
--- NOTE | 2018-03-11 16:40 | PD.CAR.PN ---
CVT Progress Note Subjective/Hospital Course: still has left loculated hydropneumothorax surgery: 03/10 1. Left Muscle-sparing Posterolateral Thoracotomy 2. Decortication and Drainage of Intrathoracic Abscesses 3. Intercostal Nerve Block Objective: GENERAL: A&O x 3 SKIN: Warm and dry. incision intact and well approximated left posterolateral chest wall HEAD: Normocephalic. EYES: No scleral icterus. No injection or drainage. NECK: Supple, trachea midline. No JVD or lymphadenopathy. CARDIOVASCULAR: Regular rate and rhythm without murmurs, gallops, or rubs. RESPIRATORY: Breath sounds equal bilaterally. No accessory muscle use. chest tube to water seal GASTROINTESTINAL: Abdomen soft, non-tender, nondistended. MUSCULOSKELETAL: No cyanosis, or edema. BACK: Nontender without obvious deformity. No CVA tenderness. Vital Signs Date Time Temp Pulse Resp B/P (MAP) Pulse Ox O2 Delivery O2 Flow Rate FiO2 03/11/18 12:00 82 03/11/18 12:00 98.3 71 16 108/67 (81) 97 03/11/18 08:00 99.1 83 16 108/58 (75) 96 03/11/18 08:00 85 03/11/18 08:00 Room Air 2.00 21 03/11/18 04:00 98.9 88 18 106/55 (72) 96 03/11/18 04:00 Room Air 03/11/18 03:53 93 03/11/18 00:00 Room Air 03/11/18 00:00 99.2 87 17 117/56 (76) 96 03/10/18 23:47 91 03/10/18 21:44 96 21 03/10/18 20:00 98.4 80 18 102/57 (72) 96 03/10/18 20:00 Room Air 03/10/18 20:00 79 03/10/18 19:00 76 03/10/18 17:01 95 21 Labs: Laboratory Tests Test 03/11/18 07:51 White Blood Count 9.0 TH/MM3 (4.0-11.0) Red Blood Count 2.97 MIL/MM3 (4.50-5.90) Hemoglobin 9.2 GM/DL (13.0-17.0) Hematocrit 27.2 % (39.0-51.0) Mean Corpuscular Volume 91.6 FL (80.0-100.0) Mean Corpuscular Hemoglobin 31.0 PG (27.0-34.0) Mean Corpuscular Hemoglobin Concent 33.9 % (32.0-36.0) Red Cell Distribution Width 14.3 % (11.6-17.2) Platelet Count 360 TH/MM3 (150-450) Mean Platelet Volume 7.4 FL (7.0-11.0) Neutrophils (%) (Auto) 71.3 % (16.0-70.0) Lymphocytes (%) (Auto) 15.5 % (9.0-44.0) Monocytes (%) (Auto) 12.7 % (0.0-8.0) Eosinophils (%) (Auto) 0.0 % (0.0-4.0) Basophils (%) (Auto) 0.5 % (0.0-2.0) Neutrophils # (Auto) 6.4 TH/MM3 (1.8-7.7) Lymphocytes # (Auto) 1.4 TH/MM3 (1.0-4.8) Monocytes # (Auto) 1.1 TH/MM3 (0-0.9) Eosinophils # (Auto) 0.0 TH/MM3 (0-0.4) Basophils # (Auto) 0.0 TH/MM3 (0-0.2) CBC Comment DIFF FINAL Differential Comment Blood Urea Nitrogen 16 MG/DL (7-18) Creatinine 1.03 MG/DL (0.60-1.30) Random Glucose 109 MG/DL (74-106) Calcium Level 8.8 MG/DL (8.5-10.1) Sodium Level 130 MEQ/L (136-145) Potassium Level 3.8 MEQ/L (3.5-5.1) Chloride Level 97 MEQ/L (98-107) Carbon Dioxide Level 24.5 MEQ/L (21.0-32.0) Anion Gap 9 MEQ/L (5-15) Estimat Glomerular Filtration Rate 92 ML/MIN (>89) Result Diagram: 03/11/18 0751 03/11/18 0751 (1) Pleural effusion, left Plan: s/p Left VATS and decortication pulm toileting OOB with guard in room leave chest tube in place Ning Membreno Mar 11, 2018 16:40
--- NOTE | 2018-03-11 19:47 | HHI.PR ---
Subjective Remarks 52 YOAA male, from correctional facility with Pn, Loculated pl eff has Left Chest not draining CT Loculated hydropneumothorax and trapped lung no fever Had vomiting episode Doing well Objective Vital Signs Vital Signs Date Time Temp Pulse Resp B/P (MAP) Pulse Ox O2 Delivery O2 Flow Rate FiO2 03/11/18 16:00 97 03/11/18 16:00 98.7 97 16 109/69 (82) 96 03/11/18 12:00 82 03/11/18 12:00 98.3 71 16 108/67 (81) 97 03/11/18 08:00 99.1 83 16 108/58 (75) 96 03/11/18 08:00 85 03/11/18 08:00 Room Air 2.00 21 03/11/18 04:00 98.9 88 18 106/55 (72) 96 03/11/18 04:00 Room Air 03/11/18 03:53 93 03/11/18 00:00 Room Air 03/11/18 00:00 99.2 87 17 117/56 (76) 96 03/10/18 23:47 91 03/10/18 21:44 96 21 03/10/18 20:00 98.4 80 18 102/57 (72) 96 03/10/18 20:00 Room Air 03/10/18 20:00 79 I/O 03/10/18 03/10/18 03/10/18 03/11/18 03/11/18 03/11/18 07:00 15:00 23:00 07:00 15:00 23:00 Intake Total 360 ml 400 ml 862 ml 200 ml 720 ml Output Total 1950 ml 158 ml 460 ml 550 ml Balance -1590 ml 242 ml 402 ml 200 ml 170 ml Intake Oral 360 ml 462 ml 720 ml IV Total 400 ml 400 ml 200 ml Output Urine Total 1950 ml 350 ml 550 ml Chest Tube Drainage Total 158 ml 110 ml # Bowel Movements 0 0 1 Result Diagram: 03/11/18 0751 03/11/18 0751 Objective Remarks GENERAL: WBWN AA male, NAD SKIN: Warm and dry. HEAD: Normocephalic. EYES: No scleral icterus. No injection or drainage. NECK: Supple, trachea midline. No JVD or lymphadenopathy. CARDIOVASCULAR: Regular rate and rhythm without murmurs, gallops, or rubs. RESPIRATORY: Breath sounds equal bilaterally. No accessory muscle use. Left chest tube in place. GASTROINTESTINAL: Abdomen soft, non-tender, nondistended. MUSCULOSKELETAL: No cyanosis, or edema. BACK: Nontender without obvious deformity. No CVA tenderness. A/P Assessment and Plan IMPRESSION: 1. Left lung loculated pleural effusion, with a trapped lung, left hydropneumothorax. 2. Hypertension PLAN: Continue Abx per ID Aerosol nebs left chest tube to suction Tessalon 200 mg tid Des Jacobs MD Mar 11, 2018 19:47
[2018-03-11] MEDS: oxyCODONE/ACETAMINOPHEN 10 MG/325 MG TAB PO PRN (19:55)
[2018-03-11] MEDS: PRAVASTATIN SOD 80 MG TAB PO SCH (19:56)
[2018-03-11] MEDS: DOCUSATE CALCIUM 240 MG CAP PO SCH (19:57)
[2018-03-11] MEDS: oxyCODONE/ACETAMINOPHEN 5 MG/325 MG TAB PO PRN (23:07)
[2018-03-12] VITALS (10 sets, daily range): BP systolic 109–132; BP diastolic 58–68; PULSE 82–104; RESP 17–19; TEMP 98.2–99.4; O2SAT 95–97
[2018-03-12] MEDS: CEFEPIME INJ 2,000 MG in SODIUM CHLORIDE 0.9% INJ 100 ML IV SCH ×3 (03:25→21:00)
[2018-03-12] MEDS: oxyCODONE/ACETAMINOPHEN 10 MG/325 MG TAB PO PRN ×3 (03:58→19:30)
[2018-03-12] MEDS: RESP: ALBUTEROL 2.5 MG/3 ML NEB (SCH) NEB ×2 (04:46→09:03)
[2018-03-12] MEDS: metroNIDAZOLE 500 MG TAB PO SCH ×3 (05:10→21:04)
[2018-03-12] MEDS: HEPARIN SODIUM - SQ 10,000 UNITS/ML VIAL SQ SCH ×3 (05:10→21:54)
--- NOTE | 2018-03-12 06:34 | RADRPT ---
EXAM DATE/TIME: 03/12/2018 05:29 [place] COMPARISON: CHEST SINGLE AP, March 11, 2018, 4:56. INDICATIONS : Shortness of breath, evaluate left chest tube. MEDICAL HISTORY : Cardiovascular disease. Hypertension. SURGICAL HISTORY : None. ENCOUNTER: Subsequent ACUITY: 3 weeks PAIN SCORE: 3/10 LOCATION: chest FINDINGS: Left thoracostomy tubes remain in place. There is no evidence of pneumothorax. There is consolidative change in the left lung base. Right lung is grossly clear. Cardiac contours are stable. CONCLUSION: Left base consolidation and/or effusion. Melvin Vargas MD on March 12, 2018 at 6:30 Board Certified Radiologist. This report was verified electronically.
[2018-03-12] MEDS: LACTOBACILLUS ACIDOPHILUS TAB PO SCH ×3 (08:33→18:25)
[2018-03-12] MEDS: FERROUS SULFATE 325 MG (65 MG ELEMENTAL IRON) TAB PO SCH ×2 (08:33→21:04)
[2018-03-12] MEDS: SODIUM CHLORIDE 0.9% FLUSH 10 ML FLUSH IV FLUSH SCH ×2 (08:34→21:00)
[2018-03-12] MEDS: oxyCODONE/ACETAMINOPHEN 5 MG/325 MG TAB PO PRN ×3 (08:34→23:00)
[2018-03-12] MEDS: RESP: ALBUTEROL 2.5 MG/IPRATROPIUM 0.5 MG NEB (PRN) NEB (09:02)
--- NOTE | 2018-03-12 10:42 | HHI.PR ---
Subjective Remarks Patient reports that he is breathing better. Pain is better controlled this morning. Objective Vitals Vital Signs Date Time Temp Pulse Resp B/P (MAP) Pulse Ox O2 Delivery O2 Flow Rate FiO2 03/12/18 08:00 99.4 92 19 122/59 (80) 97 03/12/18 04:04 104 03/12/18 04:00 98.7 94 18 132/58 (82) 96 03/12/18 00:00 98.6 102 17 127/67 (87) 96 03/12/18 00:00 Room Air 03/11/18 23:47 95 03/11/18 20:00 Room Air 03/11/18 20:00 99.7 99 17 112/56 (74) 95 03/11/18 16:00 97 03/11/18 16:00 98.7 97 16 109/69 (82) 96 03/11/18 12:00 82 03/11/18 12:00 98.3 71 16 108/67 (81) 97 I/O 03/11/18 03/11/18 03/11/18 03/12/18 03/12/18 03/12/18 07:00 15:00 23:00 07:00 15:00 23:00 Intake Total 862 ml 200 ml 820 ml 100 ml Output Total 460 ml 550 ml 700 ml Balance 402 ml 200 ml 270 ml -600 ml Intake Oral 462 ml 720 ml 0 ml IV Total 400 ml 200 ml 100 ml 100 ml Output Urine Total 350 ml 550 ml 700 ml Chest Tube Drainage Total 110 ml # Bowel Movements 0 1 0 Result Diagram: 03/11/18 0751 03/11/18 0751 Objective Remarks GENERAL: This is a well-nourished, well-developed patient, in no apparent distress. CARDIOVASCULAR: Normal rate and regular rhythm without murmurs, gallops, or rubs. RESPIRATORY: Chest tube on the left. Posterior lateral left chest incision wound appear clean and dry. Diminished breath sounds in the left base otherwise clear to auscultation bilaterally. GASTROINTESTINAL: Abdomen soft, non-tender, non-distended. Normal active bowel sounds MUSCULOSKELETAL: Extremities without cyanosis, or edema. NEURO: Alert & Oriented x4 to person, place, time, situation. Moves all ext x4 PSYCH: Appropriate mood and affect. Procedures Chest tube drainage left pleural effusion A/P Problem List: (1) Sepsis ICD Code: A41.9 - Sepsis, unspecified organism Status: Acute (2) Pneumonia ICD Code: J18.9 - Pneumonia, unspecified organism Status: Acute (3) Reactive airway disease ICD Code: J45.909 - Unspecified asthma, uncomplicated (4) Pleural effusion, left ICD Code: J90 - Pleural effusion, not elsewhere classified Assessment and Plan Mr. 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 Chest x-ray showed left base consolidation consistent with pneumonia. The patient was admitted to the hospitalist service for medical treatment. 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 Parapneumonic effusion Chest x-ray and CT of the chest reviewed shows left lower lung consolidation and a mild to moderate left pleural effusion. Relapsing fever, leukocytosis continue IV antibiotic per ID. Repeat sputum and blood cultures. Fungal smear with rare budding yeast cell, AFB stain negative, MTB PCR negative and sputum culture with normal maggie. Nebulizations and oxygen as needed. S/p steroids. S/P VATS and evacuation of abscess on 03/10/18. Chest tube in place. No leak. Chest tube to wall suction. Further plans per CT surgery. Atypical chest pain troponin negative 3. Chest pain resolved likely secondary to COPD exacerbation and pneumonia. Diarrhea likely secondary to antibiotics. C. difficile negative. Resolved. Lactinex. Resolved discontinued normal saline. Continue to monitor BMP. Acute kidney injury Suspect prerenal azotemia from dehydration due to sepsis secondary to pneumonia and COPD exacerbation. Resolved with IV fluid. Mild transaminitis in patient with history of liver failure This is resolved with negative hepatitis panel. Likely secondary to sepsis Normocytic anemia. Patient complaining of dark stool. Continue to monitor CBC. Transfuse to keep hemoglobin at least 8. Guaiac stools (negative 1) DVT propylaxis - Heparin 5000 units subcu every 8 hours Discharge Planning Patient with cavitary pneumonia, loculated abscess. COPD exacerbation, left pleural effusion s/p CT drainage and VATS for evacuation of necrotizing abscess on broad-spectrum IV antibiotics, chest tube in place, ID following. Not ready for discharge Problem Qualifiers (1) Sepsis: Qualified Codes: A41.9 - Sepsis, unspecified organism (2) Pneumonia: Qualified Codes: J18.1 - Lobar pneumonia, unspecified organism Sofía Guerrero MD Mar 12, 2018 10:42
--- NOTE | 2018-03-12 14:19 | PD.CAR.PN ---
CVT Progress Note Subjective/Hospital Course: still has left loculated hydropneumothorax surgery: 03/10 1. Left Muscle-sparing Posterolateral Thoracotomy 2. Decortication and Drainage of Intrathoracic Abscesses 3. Intercostal Nerve Block 03/11 chest tube drained 110 sero sang drainage pt is shackled to bed with 2 guards at bedside at all times 03/12 chest tube drained 150cc / 24 hrs discussed with nursing to amada q12 hrs discussed with guard to allow pt to be shackled to chair/ to facilitate drainage in chest tube no growth in cultures to date Objective: GENERAL: A&O x 3 SKIN: Warm and dry. incision intact left postero lateral chest wall HEAD: Normocephalic. EYES: No scleral icterus. No injection or drainage. NECK: Supple, trachea midline. No JVD or lymphadenopathy. CARDIOVASCULAR: Regular rate and rhythm without murmurs, gallops, or rubs. RESPIRATORY: Breath sounds equal bilaterally. No accessory muscle use. diminished left base/ to wall suction GASTROINTESTINAL: Abdomen soft, non-tender, nondistended. MUSCULOSKELETAL: No cyanosis, or edema. BACK: Nontender without obvious deformity. No CVA tenderness. Vital Signs Date Time Temp Pulse Resp B/P (MAP) Pulse Ox O2 Delivery O2 Flow Rate FiO2 03/12/18 10:52 20 03/12/18 10:45 97 Room Air 03/12/18 08:00 99.4 92 19 122/59 (80) 97 03/12/18 04:04 104 03/12/18 04:00 98.7 94 18 132/58 (82) 96 03/12/18 00:00 98.6 102 17 127/67 (87) 96 03/12/18 00:00 Room Air 03/11/18 23:47 95 03/11/18 20:00 Room Air 03/11/18 20:00 99.7 99 17 112/56 (74) 95 03/11/18 16:00 97 03/11/18 16:00 98.7 97 16 109/69 (82) 96 Result Diagram: 03/11/18 0751 03/11/18 0751 (1) Pleural effusion, left Plan: s/p Left VATS and decortication pulm toileting add nebs, ezpap acapella / Incentive spirometry OOB with guard in room leave chest tube in place / place to 20cm suction Ning Membreno [facility] Mar 12, 2018 14:19
[2018-03-12] MEDS ORDERED: RESP: ALBUTEROL 2.5 MG/IPRATROPIUM 0.5 MG NEB (PRN) NEB (14:30)
--- NOTE | 2018-03-12 18:37 | HHI.PR ---
Subjective Remarks 52 YOAA male, from correctional facility with Pn, Loculated pl eff has Left Chest not draining CT Loculated hydropneumothorax and trapped lung no fever Doing well Objective Vital Signs Vital Signs Date Time Temp Pulse Resp B/P (MAP) Pulse Ox O2 Delivery O2 Flow Rate FiO2 03/12/18 18:24 18 03/12/18 16:00 99.3 92 17 124/68 (86) 97 03/12/18 14:58 20 03/12/18 12:00 98.2 90 18 109/66 (80) 95 03/12/18 10:45 97 Room Air 03/12/18 08:00 99.4 92 19 122/59 (80) 97 03/12/18 04:04 104 03/12/18 04:00 98.7 94 18 132/58 (82) 96 03/12/18 00:00 98.6 102 17 127/67 (87) 96 03/12/18 00:00 Room Air 03/11/18 23:47 95 03/11/18 20:00 Room Air 03/11/18 20:00 99.7 99 17 112/56 (74) 95 I/O 03/11/18 03/11/18 03/11/18 03/12/18 03/12/18 03/12/18 07:00 15:00 23:00 07:00 15:00 23:00 Intake Total 862 ml 200 ml 820 ml 100 ml 720 ml Output Total 460 ml 550 ml 700 ml 840 ml Balance 402 ml 200 ml 270 ml -600 ml -120 ml Intake Oral 462 ml 720 ml 0 ml 720 ml IV Total 400 ml 200 ml 100 ml 100 ml Output Urine Total 350 ml 550 ml 700 ml 840 ml Chest Tube Drainage Total 110 ml # Voids 1 # Bowel Movements 0 1 0 0 Result Diagram: 03/11/18 0751 03/11/18 0751 Objective Remarks GENERAL: WBWN AA male, NAD SKIN: Warm and dry. HEAD: Normocephalic. EYES: No scleral icterus. No injection or drainage. NECK: Supple, trachea midline. No JVD or lymphadenopathy. CARDIOVASCULAR: Regular rate and rhythm without murmurs, gallops, or rubs. RESPIRATORY: Breath sounds equal bilaterally. No accessory muscle use. Left chest tube in place. GASTROINTESTINAL: Abdomen soft, non-tender, nondistended. MUSCULOSKELETAL: No cyanosis, or edema. BACK: Nontender without obvious deformity. No CVA tenderness. A/P Assessment and Plan IMPRESSION: 1. Left lung loculated pleural effusion, with a trapped lung, left hydropneumothorax. 2. Hypertension PLAN: Continue Abx per ID Aerosol nebs left chest tube to suction Tessalon 200 mg tid Stable from Pulm standpoint Available prn over weekend Des Jacobs MD Mar 12, 2018 18:37
[2018-03-12] MEDS: RESP: ALBUTEROL 2.5 MG/IPRATROPIUM 0.5 MG NEB (SCH) NEB (20:00)
[2018-03-12] MEDS: DOCUSATE CALCIUM 240 MG CAP PO SCH (20:55)
[2018-03-12] MEDS: PRAVASTATIN SOD 80 MG TAB PO SCH (21:00)
[2018-03-13] VITALS (10 sets, daily range): BP systolic 112–129; BP diastolic 61–70; PULSE 85–98; RESP 18–21; TEMP 98.4–99.5; O2SAT 94–97
[2018-03-13] MEDS: oxyCODONE/ACETAMINOPHEN 10 MG/325 MG TAB PO PRN ×3 (02:01→22:25)
[2018-03-13] MEDS: oxyCODONE/ACETAMINOPHEN 5 MG/325 MG TAB PO PRN (05:37)
[2018-03-13] MEDS: CEFEPIME INJ 2,000 MG in SODIUM CHLORIDE 0.9% INJ 100 ML IV SCH ×3 (05:37→19:49)
[2018-03-13] MEDS: metroNIDAZOLE 500 MG TAB PO SCH ×3 (05:38→22:19)
[2018-03-13] MEDS: HEPARIN SODIUM - SQ 10,000 UNITS/ML VIAL SQ SCH ×3 (05:38→22:20)
[2018-03-13 06:33] LABS: HEMOGLOBIN 9.5 GM/DL (13.0-17.0); MEAN CELL VOLUME 91.2 FL (80.0-100.0); MEAN CORPUSCULAR HEMOGLOBIN 30.9 PG (27.0-34.0); MEAN CORPUSCULAR HGB CONC 33.9 % (32.0-36.0); MEAN PLATELET VOLUME 7.6 FL (7.0-11.0); PLATELET COUNT 337 TH/MM3 (150-450); RED BLOOD COUNT 3.07 MIL/MM3 (4.50-5.90); RED CELL DISTRIBUTION WIDTH 14.2 % (11.6-17.2)
[2018-03-13 06:54] LABS: BICARBONATE 27.9 MEQ/L (21.0-32.0); CALCIUM 9.3 MG/DL (8.5-10.1); CREATININE 0.88 MG/DL (0.60-1.30)
[2018-03-13] MEDS: RESP: ALBUTEROL 2.5 MG/IPRATROPIUM 0.5 MG NEB (SCH) NEB ×3 (08:14→20:51)
[2018-03-13] MEDS: FERROUS SULFATE 325 MG (65 MG ELEMENTAL IRON) TAB PO SCH ×2 (08:47→20:19)
[2018-03-13] MEDS: LACTOBACILLUS ACIDOPHILUS TAB PO SCH ×3 (08:47→18:00)
[2018-03-13] MEDS: ACETAMINOPHEN/HYDROcodone 325 MG/7.5 MG TAB PO PRN ×4 (08:48→23:52)
[2018-03-13] MEDS: SODIUM CHLORIDE 0.9% FLUSH 10 ML FLUSH IV FLUSH SCH ×2 (08:51→20:19)
--- NOTE | 2018-03-13 11:06 | HHI.PR ---
Subjective Remarks Breathing comfortable. Pain is controlled. Objective Vitals Vital Signs Date Time Temp Pulse Resp B/P (MAP) Pulse Ox O2 Delivery O2 Flow Rate FiO2 03/13/18 08:17 95 21 03/13/18 08:00 98.7 92 20 129/68 (88) 96 03/13/18 04:00 98.4 88 20 112/67 (82) 97 03/13/18 03:58 89 03/13/18 00:00 99.0 98 21 129/61 (83) 94 03/12/18 23:38 93 03/12/18 20:00 Room Air 03/12/18 20:00 98.8 87 18 116/66 (83) 97 03/12/18 19:43 88 03/12/18 18:52 82 03/12/18 18:24 18 03/12/18 16:00 99.3 92 17 124/68 (86) 97 03/12/18 14:58 20 03/12/18 12:00 98.2 90 18 109/66 (80) 95 03/12/18 12:00 85 I/O 03/12/18 03/12/18 03/12/18 03/13/18 03/13/18 03/13/18 07:00 15:00 23:00 07:00 15:00 23:00 Intake Total 100 ml 920 ml 580 ml Output Total 700 ml 840 ml 510 ml Balance -600 ml 80 ml 70 ml Intake Oral 0 ml 720 ml 480 ml IV Total 100 ml 200 ml 100 ml Output Urine Total 700 ml 840 ml 500 ml Chest Tube Drainage Total 10 ml # Voids 1 # Bowel Movements 0 0 Result Diagram: 03/13/18 0402 03/13/18 0420 Objective Remarks GENERAL: This is a well-nourished, well-developed patient, in no apparent distress. CARDIOVASCULAR: Normal rate and regular rhythm without murmurs, gallops, or rubs. RESPIRATORY: Chest tube on the left. Posterior lateral left chest incision wound appear clean and dry. Diminished breath sounds in the left base otherwise clear to auscultation bilaterally. GASTROINTESTINAL: Abdomen soft, non-tender, non-distended. Normal active bowel sounds MUSCULOSKELETAL: Extremities without cyanosis, or edema. NEURO: Alert & Oriented x4 to person, place, time, situation. Moves all ext x4 PSYCH: Appropriate mood and affect. Procedures Chest tube drainage left pleural effusion A/P Problem List: (1) Sepsis ICD Code: A41.9 - Sepsis, unspecified organism Status: Acute (2) Pneumonia ICD Code: J18.9 - Pneumonia, unspecified organism Status: Acute (3) Reactive airway disease ICD Code: J45.909 - Unspecified asthma, uncomplicated (4) Pleural effusion, left ICD Code: J90 - Pleural effusion, not elsewhere classified Assessment and Plan Mr. 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 Chest x-ray showed left base consolidation consistent with pneumonia. The patient was admitted to the hospitalist service for medical treatment. 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 Parapneumonic effusion Chest x-ray and CT of the chest reviewed shows left lower lung consolidation and a mild to moderate left pleural effusion. Relapsing fever, leukocytosis continue IV antibiotic per ID. Repeat sputum and blood cultures. Fungal smear with rare budding yeast cell, AFB stain negative, MTB PCR negative and sputum culture with normal maggie. Nebulizations and oxygen as needed. S/p steroids. S/P VATS and evacuation of abscess on 03/10/18. Chest tube in place. No leak. Chest tube to wall suction. Pending decrease output. Further plans per CT surgery. Atypical chest pain troponin negative 3. Chest pain resolved likely secondary to COPD exacerbation and pneumonia. Diarrhea likely secondary to antibiotics. C. difficile negative. Resolved. Lactinex. Resolved discontinued normal saline. Continue to monitor BMP. Acute kidney injury Suspect prerenal azotemia from dehydration due to sepsis secondary to pneumonia and COPD exacerbation. Resolved with IV fluid. Mild transaminitis in patient with history of liver failure This is resolved with negative hepatitis panel. Likely secondary to sepsis Normocytic anemia. Patient complaining of dark stool. Continue to monitor CBC. Transfuse to keep hemoglobin at least 8. Guaiac stools (negative 1) DVT propylaxis - Heparin 5000 units subcu every 8 hours Discharge Planning Patient with cavitary pneumonia, loculated abscess. COPD exacerbation, left pleural effusion s/p CT drainage and VATS for evacuation of necrotizing abscess on broad-spectrum IV antibiotics, chest tube in place, ID following. Not ready for discharge Problem Qualifiers (1) Sepsis: Qualified Codes: A41.9 - Sepsis, unspecified organism (2) Pneumonia: Qualified Codes: J18.1 - Lobar pneumonia, unspecified organism Sofía Guerrero MD Mar 13, 2018 11:06
[2018-03-13] MEDS: PRAVASTATIN SOD 80 MG TAB PO SCH (20:19)
[2018-03-13] MEDS: DOCUSATE CALCIUM 240 MG CAP PO SCH (20:19)
[2018-03-14] VITALS (10 sets, daily range): BP systolic 105–129; BP diastolic 61–72; PULSE 76–102; RESP 17–20; TEMP 98.1–98.9; O2SAT 95–99
[2018-03-14] MEDS: ACETAMINOPHEN/HYDROcodone 325 MG/7.5 MG TAB PO PRN ×3 (03:59→18:24)
[2018-03-14] MEDS: CEFEPIME INJ 2,000 MG in SODIUM CHLORIDE 0.9% INJ 100 ML IV SCH ×3 (04:00→21:00)
[2018-03-14] MEDS: metroNIDAZOLE 500 MG TAB PO SCH ×3 (06:08→22:15)
[2018-03-14] MEDS: HEPARIN SODIUM - SQ 10,000 UNITS/ML VIAL SQ SCH ×3 (06:09→22:14)
[2018-03-14] MEDS: oxyCODONE/ACETAMINOPHEN 10 MG/325 MG TAB PO PRN ×3 (06:09→21:02)
[2018-03-14] MEDS: RESP: ALBUTEROL 2.5 MG/IPRATROPIUM 0.5 MG NEB (SCH) NEB ×3 (08:49→20:00)
--- NOTE | 2018-03-14 09:34 | HHI.PR ---
Subjective Remarks Patient reports he is feeling well today. Breathing comfortably. He has been out of bed to the chair. Objective Vitals Vital Signs Date Time Temp Pulse Resp B/P (MAP) Pulse Ox O2 Delivery O2 Flow Rate FiO2 03/14/18 04:00 98.4 89 19 125/68 (87) 98 03/14/18 04:00 102 03/14/18 04:00 Room Air 03/14/18 00:04 83 03/14/18 00:00 98.9 89 17 125/71 (89) 95 03/14/18 00:00 Room Air 03/13/18 20:52 95 21 03/13/18 20:13 93 03/13/18 20:00 99.5 89 18 124/68 (86) 97 03/13/18 16:00 99.2 93 20 113/65 (81) 97 03/13/18 12:00 99.2 87 20 121/70 (87) 97 I/O 03/13/18 03/13/18 03/13/18 03/14/18 03/14/18 03/14/18 07:00 15:00 23:00 07:00 15:00 23:00 Intake Total 580 ml 580 ml 340 ml Output Total 510 ml 400 ml 850 ml Balance 70 ml 180 ml -510 ml Intake Oral 480 ml 480 ml 240 ml IV Total 100 ml 100 ml 100 ml Output Urine Total 500 ml 400 ml 850 ml Chest Tube Drainage Total 10 ml # Bowel Movements 0 Result Diagram: 03/13/18 0402 03/13/18 0420 Objective Remarks GENERAL: This is a well-nourished, well-developed patient, in no apparent distress. CARDIOVASCULAR: Normal rate and regular rhythm without murmurs, gallops, or rubs. RESPIRATORY: Chest tube on the left. Posterior lateral left chest incision wound appear clean and dry. Diminished breath sounds in the left base otherwise clear to auscultation bilaterally. GASTROINTESTINAL: Abdomen soft, non-tender, non-distended. Normal active bowel sounds MUSCULOSKELETAL: Extremities without cyanosis, or edema. NEURO: Alert & Oriented x4 to person, place, time, situation. Moves all ext x4 PSYCH: Appropriate mood and affect. Procedures Chest tube drainage left pleural effusion A/P Problem List: (1) Sepsis ICD Code: A41.9 - Sepsis, unspecified organism Status: Acute (2) Pneumonia ICD Code: J18.9 - Pneumonia, unspecified organism Status: Acute (3) Reactive airway disease ICD Code: J45.909 - Unspecified asthma, uncomplicated (4) Pleural effusion, left ICD Code: J90 - Pleural effusion, not elsewhere classified Assessment and Plan Mr. 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 Chest x-ray showed left base consolidation consistent with pneumonia. The patient was admitted to the hospitalist service for medical treatment. 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 Parapneumonic effusion Chest x-ray and CT of the chest reviewed shows left lower lung consolidation and a mild to moderate left pleural effusion. Relapsing fever, leukocytosis continue IV antibiotic per ID. Repeat sputum and blood cultures. Fungal smear with rare budding yeast cell, AFB stain negative, MTB PCR negative and sputum culture with normal maggie. Nebulizations and oxygen as needed. S/p steroids. S/P VATS and evacuation of abscess on 03/10/18. Chest tube in place. No leak. Output is less. Further plans per CT surgery. Atypical chest pain troponin negative 3. Chest pain resolved likely secondary to COPD exacerbation and pneumonia. Diarrhea likely secondary to antibiotics. C. difficile negative. Resolved. Lactinex. Resolved discontinued normal saline. Continue to monitor BMP. Acute kidney injury Suspect prerenal azotemia from dehydration due to sepsis secondary to pneumonia and COPD exacerbation. Resolved with IV fluid. Mild transaminitis in patient with history of liver failure This is resolved with negative hepatitis panel. Likely secondary to sepsis Normocytic anemia. Patient complaining of dark stool. Continue to monitor CBC. Transfuse to keep hemoglobin at least 8. Guaiac stools (negative 1) DVT propylaxis - Heparin 5000 units subcu every 8 hours Discharge Planning Patient with cavitary pneumonia, loculated abscess. COPD exacerbation, left pleural effusion s/p CT drainage and VATS for evacuation of necrotizing abscess on broad-spectrum IV antibiotics, chest tube in place, ID following. Not ready for discharge Problem Qualifiers (1) Sepsis: Qualified Codes: A41.9 - Sepsis, unspecified organism (2) Pneumonia: Qualified Codes: J18.1 - Lobar pneumonia, unspecified organism Sofía Guerrero MD Mar 14, 2018 09:34
[2018-03-14] MEDS: LACTOBACILLUS ACIDOPHILUS TAB PO SCH ×3 (10:15→18:22)
[2018-03-14] MEDS: FERROUS SULFATE 325 MG (65 MG ELEMENTAL IRON) TAB PO SCH ×2 (10:15→21:01)
[2018-03-14] MEDS ORDERED: MORPHINE SULFATE 2 MG/ML SYRINGE IV PUSH ONE (11:00)
[2018-03-14] MEDS: SODIUM CHLORIDE 0.9% FLUSH 10 ML FLUSH IV FLUSH SCH ×2 (11:09→21:01)
--- NOTE | 2018-03-14 11:10 | PD.CAR.PN ---
CVT Progress Note Subjective/Hospital Course: still has left loculated hydropneumothorax surgery: 03/10 1. Left Muscle-sparing Posterolateral Thoracotomy 2. Decortication and Drainage of Intrathoracic Abscesses 3. Intercostal Nerve Block 03/11 chest tube drained 110 sero sang drainage pt is shackled to bed with 2 guards at bedside at all times 03/12 chest tube drained 150cc / 24 hrs discussed with nursing to amada q12 hrs discussed with guard to allow pt to be shackled to chair/ to facilitate drainage in chest tube no growth in cultures to date 03/14 Clinically stable. C/o incisional pain CT removed OK to D/C from my standpoint Objective: Vital Signs Date Time Temp Pulse Resp B/P (MAP) Pulse Ox O2 Delivery O2 Flow Rate FiO2 03/14/18 08:00 98.3 86 20 126/68 (87) 97 03/14/18 04:00 98.4 89 19 125/68 (87) 98 03/14/18 04:00 102 03/14/18 04:00 Room Air 03/14/18 00:04 83 03/14/18 00:00 98.9 89 17 125/71 (89) 95 03/14/18 00:00 Room Air 03/13/18 20:52 95 21 03/13/18 20:13 93 03/13/18 20:00 99.5 89 18 124/68 (86) 97 03/13/18 16:00 99.2 93 20 113/65 (81) 97 03/13/18 12:00 99.2 87 20 121/70 (87) 97 Result Diagram: 03/13/18 0402 03/13/18 0420 (1) Pleural effusion, left Plan: s/p Left VATS and decortication pulm toileting add nebs, ezpap acapella / Incentive spirometry OOB with guard in room leave chest tube in place / place to 20cm suction (2) Empyema lung (3) S/P thoracotomy Kunal Luke MD Mar 14, 2018 11:10
[2018-03-14] MEDS ORDERED: KETOROLAC TROMETHAMINE 60 MG/2 ML (IM) VIAL IM PRN (11:15)
[2018-03-14] MEDS ORDERED: KETOROLAC TROMETHAMINE 30 MG/ML (IVP) VIAL IV PUSH PRN (11:45)
[2018-03-14] MEDS ORDERED: SIMETHICONE 125 MG CHEWABLE TAB PO PRN (17:00)
[2018-03-14] MEDS: PRAVASTATIN SOD 80 MG TAB PO SCH (21:00)
[2018-03-14] MEDS: DOCUSATE CALCIUM 240 MG CAP PO SCH (21:01)
[2018-03-15] VITALS (8 sets, daily range): BP systolic 106–138; BP diastolic 62–75; PULSE 87–109; RESP 17–20; TEMP 98.1–99.8; O2SAT 94–96
[2018-03-15] MEDS: ACETAMINOPHEN/HYDROcodone 325 MG/7.5 MG TAB PO PRN ×4 (00:31→12:32)
[2018-03-15] MEDS: oxyCODONE/ACETAMINOPHEN 10 MG/325 MG TAB PO PRN ×2 (01:52→06:16)
[2018-03-15] MEDS: CEFEPIME INJ 2,000 MG in SODIUM CHLORIDE 0.9% INJ 100 ML IV SCH ×2 (04:38→14:31)
[2018-03-15] MEDS: HEPARIN SODIUM - SQ 10,000 UNITS/ML VIAL SQ SCH ×2 (06:00→14:33)
[2018-03-15] MEDS: metroNIDAZOLE 500 MG TAB PO SCH (06:16)
[2018-03-15] MEDS: RESP: ALBUTEROL 2.5 MG/IPRATROPIUM 0.5 MG NEB (SCH) NEB ×2 (07:15→11:39)
[2018-03-15] MEDS: FERROUS SULFATE 325 MG (65 MG ELEMENTAL IRON) TAB PO SCH (08:22)
[2018-03-15] MEDS: LACTOBACILLUS ACIDOPHILUS TAB PO SCH ×2 (08:24→14:33)
[2018-03-15] MEDS: SODIUM CHLORIDE 0.9% FLUSH 10 ML FLUSH IV FLUSH SCH (08:24)
--- NOTE | 2018-03-15 09:41 | RADRPT ---
EXAM DATE/TIME: 03/15/2018 09:05 [facility] COMPARISON: CHEST SINGLE AP, March 12, 2018, 5:29. INDICATIONS : Evaluate for pneumothorax, post chest tube removal. MEDICAL HISTORY : Cardiovascular disease. Hypertension SURGICAL HISTORY : None. ENCOUNTER: Subsequent ACUITY: 3 weeks PAIN SCORE: 0/10 LOCATION: Bilateral chest FINDINGS: Interval removal of left-sided chest tubes. No significant pneumothorax. Mild airspace disease in the left lower lung zone. Cardiomediastinal contours are within normal limits. Remainder of exam is unch anged. CONCLUSION: 1. Interval removal of left-sided chest tubes without significant pneumothorax. 2. Left lower lobe airspace disease, likely atelectasis. Garrick Champagne MD on March 15, 2018 at 9:28 Board Certified Radiologist. This report was verified electronically.
[2018-03-15] MEDS ORDERED: IBUP1TAB7 PO (10:18)
[2018-03-15] MEDS ORDERED: PERC5TAB12 PO (10:18)
--- NOTE | 2018-03-15 10:20 | HHI.DS ---
Discharge Summary Admission Date Feb 23, 2018 at 19:28 Discharge Date: Mar 15, 2018 Admitting Diagnosis sepsis, pneumonia (1) Sepsis ICD Code: A41.9 - Sepsis, unspecified organism Diagnosis: Principal Status: Acute (2) Pneumonia ICD Code: J18.9 - Pneumonia, unspecified organism Status: Acute (3) Reactive airway disease ICD Code: J45.909 - Unspecified asthma, uncomplicated (4) Pleural effusion, left ICD Code: J90 - Pleural effusion, not elsewhere classified (5) Empyema lung ICD Code: J86.9 - Pyothorax without fistula (6) S/P thoracotomy ICD Code: Z98.890 - Other specified postprocedural states Procedures surgery: 03/10 1. Left Muscle-sparing Posterolateral Thoracotomy 2. Decortication and Drainage of Intrathoracic Abscesses 3. Intercostal Nerve Block Brief History - From Admission HPI from the admitting physician: Mr. 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 Chest x-ray showed left base consolidation consistent with pneumonia. The patient was admitted to the hospitalist service for medical treatment. The patient is seen in the emergency room. He states that he has had symptoms for the past 3 weeks including productive cough with green sputum, left-sided atypical chest pain, and shortness of breath. He reports some episodes of mild hemoptysis. He reports fever, chills, nausea, vomiting, and diarrhea accompanying his symptoms. He reports feeling better now that he is in the emergency room and has started to receive treatment. Symptoms are reported as severe. CBC/BMP: 03/13/18 0402 03/13/18 0420 Significant Findings Laboratory Tests Test 03/13/18 04:02 03/13/18 04:20 Red Blood Count 3.07 MIL/MM3 (4.50-5.90) Hemoglobin 9.5 GM/DL (13.0-17.0) Hematocrit 28.0 % (39.0-51.0) Sodium Level 131 MEQ/L (136-145) Chloride Level 94 MEQ/L (98-107) Imaging Last Impressions Chest X-Ray 03/15/18 0000 Signed Impressions: Service Date/Time: Thursday, March 15, 2018 09:05 - CONCLUSION: 1. Interval removal of left-sided chest tubes without significant pneumothorax. 2. Left lower lobe airspace disease, likely atelectasis. Garrick Champagne MD Chest CT 03/03/18 0000 Signed Impressions: Service Date/Time: Saturday, March 03, 2018 15:31 - CONCLUSION: Hydropneumothorax at the left lung base with diffuse pleural thickening and consolidation in the left lower lobe. There is thick fluid with small air pockets in the fluid throughout the left lung base. Findings would be most consistent with empyema. The fluid at the left lung base has been drained however, the lung has not reinflated. Bhavin Aguilar MD Thoracentesis 03/01/18 0000 Signed Impressions: Service Date/Time: Thursday, March 01, 2018 14:31 - CONCLUSION: Uncomplicated CT-guided thoracentesis and chest tube placement as above. Delroy Deleon MD Abdomen/Pelvis CT 02/26/18 0000 Signed Impressions: Service Date/Time: Tuesday, February 27, 2018 14:19 - CONCLUSION: 1. Multiloculated air and fluid collection in the left hemithorax similar to recent chest CT concerning for a left sided empyema with adjacent lung consolidation and atelectasis. 2. Mild anasarca. Trace free fluid. No obstruction or free air. Balaji Stapleton MD Chest Ultrasound 02/25/18 0000 Signed Impressions: Service Date/Time: January 10:42 - CONCLUSION: Left pleural effusion is too small and loculated for ultrasound-guided thoracentesis. CT guided thoracentesis is recommended. Ramin Angulo MD PE at Discharge GENERAL: This is a well-nourished, well-developed patient, in no apparent distress. CARDIOVASCULAR: Normal rate and regular rhythm without murmurs, gallops, or rubs. RESPIRATORY: Chest tube on the left. Posterior lateral left chest incision wound appear clean and dry. Diminished breath sounds in the left base otherwise clear to auscultation bilaterally. GASTROINTESTINAL: Abdomen soft, non-tender, non-distended. Normal active bowel sounds MUSCULOSKELETAL: Extremities without cyanosis, or edema. NEURO: Alert & Oriented x4 to person, place, time, situation. Moves all ext x4 PSYCH: Appropriate mood and affect. Pt update on day of discharge Patient reports he is feeling okay. Breathing comfortably. Chest tube has been removed. No significant pneumothorax on follow-up chest x-ray. 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 Chest x-ray showed left base consolidation consistent with pneumonia. The patient was admitted to the hospitalist service for medical treatment. Treatment course detailed below: Left lung base pneumonia Sepsis Cavitary lung lesion in a correctional facility inmate Reactive airway disease. Parapneumonic effusion Chest x-ray and CT of the chest reviewed shows left lower lung consolidation and a mild to moderate left pleural effusion. Relapsing fever, leukocytosis continue IV antibiotic per ID. Repeat sputum and blood cultures. Fungal smear with rare budding yeast cell, AFB stain negative, MTB PCR negative and sputum culture with normal maggie. Nebulizations and oxygen as needed. S/p steroids. Patient did have a empyema/loculation of fluid. He was followed by CT surgery. He underwent thoracotomy and evacuation of abscess. Patient did well postoperatively. Discussed with infectious disease on the day of discharge, patient was discharged on Augmentin. He is to have follow-up chest x-ray in about a week with PCP. Atypical chest pain troponin negative 3. Chest pain resolved likely secondary to COPD exacerbation and pneumonia. Diarrhea likely secondary to antibiotics. C. difficile negative. Resolved. Lactinex. Resolved discontinued normal saline. Acute kidney injury Suspect prerenal azotemia from dehydration due to sepsis secondary to pneumonia and COPD exacerbation. Resolved with IV fluid. Mild transaminitis in patient with history of liver failure This is resolved with negative hepatitis panel. Likely secondary to sepsis Normocytic anemia. H&H remained stable. Guaiac stool was negative. Pt Condition on Discharge: Stable Discharge Disposition: Trnsfr to Other Facility Discharge Time: > 30 minutes Discharge Instructions DIET: Follow Instructions for: Heart Healthy Diet Activities you can perform: Regular-No Restrictions Activities to Avoid: Driving Follow up Referrals: PCP Follow-up - 1 Week PCP Follow-up - [address] [facility] [phone] New Medications: Amoxicillin-Clavulanate (Augmentin) 500-125 mg Tab 500 MG PO Q8H for Infection for 28 Days, TAB 0 Refills Ibuprofen (Ibuprofen) 800 Mg Tab 800 MG PO Q6HR PRN for PAIN, #20 TAB 0 Refills Oxycodone-Acetaminophen (Percocet) 5-325 mg Tab 1 TAB PO Q6H PRN for severe pain, #10 TAB 0 Refills Ferrous Sulfate (Ferosul) 325 Mg (65 Mg Iron) Tablet 325 MG PO BID for Build Red Blood Cells, #60 TAB Lactobacillus Acidophilus (Acidophilus/l-Sporogenes) 35 Million Cell-25 Million Cell Tab 1 TAB PO TID for Bowel Management, #60 TAB [Albuterol-Ipratropium Neb] () 1 AMPULE NEBU 1 AMPULE NEB Q6HR NEB for Breathing Treatment, #30 NEBULE Continued Medications: Simvastatin (Simvastatin) 40 Mg Tab 40 MG PO HS for Cholesterol Management, #30 TAB 0 Refills Sofía Guerrero MD Mar 15, 2018 10:20
--- NOTE | 2018-03-15 10:20 | HHI.DCPOC ---
Discharge Care Plan Diagnosis: (1) Sepsis (2) Pneumonia (3) Empyema lung (4) Pleural effusion, left (5) S/P thoracotomy Goals to Promote Your Health * To prevent worsening of your condition and complications * To maintain your health at the optimal level Directions to Meet Your Goals Take your medications as prescribed Follow your dietary instruction Follow activity as directed Keep your appointments as scheduled Take your immunizations and boosters as scheduled If your symptoms worsen call your PCP, if no PCP go to Urgent Care Center or Emergency Room Smoking is Dangerous to Your Health. Avoid second hand smoke Call the 24-hour hour crisis hotline for domestic abuse at Sofía Guerrero MD Mar 15, 2018 10:20
--- NOTE | 2018-03-15 16:27 | HHI.IDPN ---
Subjective Subjective Remarks Doing OK afebrile clx negative: final WBC down to normal CT was removed Antibiotics IV Cefepime po Flagyl Lines PIV without e/o infection Past Medical History CVA in 2001 with left-sided facial droop Liver dysfunction secondary to atorvastatin use in 1997 [place] -patient states he refused cardiac catheterization or any further workup for this Allergies: Coded Allergies: atorvastatin (Verified Adverse Reaction, Severe, Liver failure, 02/23/18) Objective . Vital Signs Date Time Temp Pulse Resp B/P (MAP) Pulse Ox O2 Delivery O2 Flow Rate FiO2 03/15/18 12:04 98.6 88 18 138/67 (90) 96 03/15/18 12:00 90 03/15/18 12:00 100 Room Air 03/15/18 12:00 96 Room Air 03/15/18 12:00 97 03/15/18 10:04 90 03/15/18 10:04 96 Room Air 03/15/18 08:00 98.1 87 20 106/70 (82) 96 03/15/18 04:00 Room Air 03/15/18 04:00 99.2 92 17 130/75 (93) 96 03/15/18 03:56 109 03/15/18 00:00 99.8 90 19 120/64 (82) 95 03/15/18 00:00 Room Air 03/14/18 23:48 92 03/14/18 20:12 99 03/14/18 20:02 85 03/14/18 20:00 Room Air 03/14/18 20:00 98.2 85 17 129/65 (86) 96 Imaging Last Impressions Chest X-Ray 03/15/18 0000 Signed Impressions: Service Date/Time: Thursday, March 15, 2018 09:05 - CONCLUSION: 1. Interval removal of left-sided chest tubes without significant pneumothorax. 2. Left lower lobe airspace disease, likely atelectasis. Garrick Champagne MD Chest CT 03/03/18 0000 Signed Impressions: Service Date/Time: Saturday, March 03, 2018 15:31 - CONCLUSION: Hydropneumothorax at the left lung base with diffuse pleural thickening and consolidation in the left lower lobe. There is thick fluid with small air pockets in the fluid throughout the left lung base. Findings would be most consistent with empyema. The fluid at the left lung base has been drained however, the lung has not reinflated. Bhavin Aguilar MD Thoracentesis 03/01/18 0000 Signed Impressions: Service Date/Time: Thursday, March 01, 2018 14:31 - CONCLUSION: Uncomplicated CT-guided thoracentesis and chest tube placement as above. Delroy Deleon MD Abdomen/Pelvis CT 02/26/18 0000 Signed Impressions: Service Date/Time: Tuesday, February 27, 2018 14:19 - CONCLUSION: 1. Multiloculated air and fluid collection in the left hemithorax similar to recent chest CT concerning for a left sided empyema with adjacent lung consolidation and atelectasis. 2. Mild anasarca. Trace free fluid. No obstruction or free air. Balaji Stapleton MD Chest Ultrasound 02/25/18 0000 Signed Impressions: Service Date/Time: January 10:42 - CONCLUSION: Left pleural effusion is too small and loculated for ultrasound-guided thoracentesis. CT guided thoracentesis is recommended. Ramin Angulo MD Physical Exam CONSTITUTIONAL/GENERAL: This is a [facility] male patient, in no apparent distress. Awake and alert. SKIN: Warm and dry. No rash appreciated. CARDIOVASCULAR: Regular rate and rhythm without murmurs, gallops, or rubs. RESPIRATORY/CHEST: well approximamated slightly tender incision very few rhonchi and decreased BS on L base GASTROINTESTINAL: Abdomen soft, nondistended. MUSCULOSKELETAL: Extremities without clubbing, cyanosis, or edema. NEUROLOGICAL: Awake and alert. Motor and sensory grossly within normal limits. Normal speech. PSYCHIATRIC: Appropriate mood and affect. Normal insight and judgement. Assessment & Plan Remarks 1. Left Organized Empyema 2. Loculated Abscess, clx negative 3. Pneumonia 4. Necrotizing Abscess s/p drainage - change abx to augmentin - will tenatively give 4 weeks , but final decision on stop date should be done based on clinical and radiological resolution - CXRs weekly until complete resolution (or residual stable findings, like scarring ) OK to dc home Britney Romero MD Mar 15, 2018 16:27
[2018-03-15] MEDS ORDERED: AUGM500T7 PO (16:41)
[2018-03-15] MEDS ORDERED: AMOXICILLIN/CLAVULANATE K 500 MG TAB PO SCH (22:00)
== END 2018-03-15 18:07 | DRG 853 ==
LOC: NEPE 16:42 → NEDA 19:28 → EEVIPCON 19:28 → N04B 21:24 → N04A 23:30
PROVIDERS: ADMIT Family Medicine; ATTEND Family Medicine
PROC: 0W9B3ZX Drainage of Left Pleural Cavity, Percutaneous Approach, Diagnostic (ICD-10-PCS; 2018-03-01)
PROC: 0BDP0ZZ Extraction of Left Pleura, Open Approach (ICD-10-PCS; 2018-03-10)
PROC: 3E0T3BZ Introduction of Anesthetic Agent into Peripheral Nerves and Plexi, Percutaneous Approach (ICD-10-PCS; 2018-03-10)
PROC: 0W9 Anatomical Regions, General, Drainage (ICD-10-PCS; principal; 2018-03-10 09:29)
DX: A41.9 Sepsis, unspecified organism (principal); J86.9 Pyothorax without fistula; J91.8 Pleural effusion in other conditions classified elsewhere; N17.9 Acute kidney failure, unspecified; J18.1 Lobar pneumonia, unspecified organism; K72.90 Hepatic failure, unspecified without coma; J44.1 Chronic obstructive pulmonary disease with (acute) exacerbation; R04.2 Hemoptysis; E87.1 Hypo-osmolality and hyponatremia; K52.1 Toxic gastroenteritis and colitis; T46.6X5A Adverse effect of antihyperlipidemic and antiarteriosclerotic drugs, initial encounter; R65.20 Severe sepsis without septic shock; I25.2 Old myocardial infarction; I69.392 Facial weakness following cerebral infarction; Z87.891 Personal history of nicotine dependence; R00.0 Tachycardia, unspecified; D64.9 Anemia, unspecified; R50.2 Drug induced fever; T36.95XA Adverse effect of unspecified systemic antibiotic, initial encounter; I10 Essential (primary) hypertension
CPT/HCPCS: 32555; 71045; 71260; 74177; 76604; 76937; 80048; 80053; 80074; 80202; 81001; 82150; 82272; 82550; 82552; 82728; 82945; 83540; 83550; 83605; 83615; 83735; 84100; 84157; 84484; 85007; 85025; 85027; 85610; 85730; 86480; 86703; 86850; 86900; 86901; 87015; 87040; 87070; 87102; 87116; 87176; 87205; 87206; 87493; 87556; 87798; 87804; 88112; 88305; 93005; 94150; 94640; 94664; 94667; 94668; 96365; 96368; 99152; C1729; C1769; C9290; J0131; J0690; J0692; J1100; J1644; J1885; J2175; J2250; J2270; J2370; J2405; J2543; J2710; J2920; J2930; J3010; J3370; J7030; J7040; J7050; J7512; J7613; Q9963; Q9967